=== PATIENT | female | born 1990 | race Caucasian/White ===

== ENCOUNTER 2020-03-05 19:37 | Emergency (ER) | payer BC, SELFPAY ==
[2020-03-05 20:27] VITALS: BP 114/69; PULSE 69; RESP 20; TEMP 37.1; O2SAT 99; BMI 26.6
--- NOTE | 2020-03-05 20:38 | ECG_ITS ---
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 Measurements Intervals [place] Rate: 57 P: 67 PA: 158 QRS: 81 QRSD: 87 T: 6 QT: 397 QTc: 387 Interpretive Statements SINUS BRADYCARDIA NONSPECIFIC T-WAVE ABNORMALITY Compared to ECG 08/18/2017 18:30:56 T-wave abnormality now present Sinus tachycardia no longer present ST (T wave) deviation no longer present Electronically Signed On 03-06-2020 18:33:00 CDT by Eric Lagunas M.D. [email or web address] Systemsochsner medical centerBridgeLuxmagruder [facility].[employer]/store/OM/[id number]
--- NOTE | 2020-03-05 20:38 | XR_ITS ---
WS: [id number] EXAM: AP CHEST: PORTABLE UPRIGHT DATE OF EXAM: 03/05/2020, 2115 hours COMPARISON: Chest x-ray from 08/18/2017 HISTORY: Patient is 29 years old with chest pain and shortness of breath. Has been tested positive for Covid-1 9 infection. FINDINGS: The cardiac silhouette is normal in size. The mediastinal contours are normal. The pulmonary vas cularity is normal. The lungs are clear of infiltrate. There is no effusion or pneumothorax. No ac navajo bony abnormality is seen. XR/XR chest 1V portable [id number] IMPRESSION: No acute pulmonary disease.
[2020-03-05] MEDS: ondansetron 2 mg/ML SDV 2 mL 4 MG IVP (20:41)
[2020-03-05] MEDS: ketorolac 30 mg/mL INJ 10 MG IVP (20:44)
[2020-03-05] MEDS: acetaminophen 500 mg Tablet 1000 MG PO (20:46)
[2020-03-05] MEDS: sodium chloride 0.9% 1,000 ML 999 ML IV (21:00)
--- NOTE | 2020-03-05 21:01 | ED_ITS ---
HPI - Chest Pain General: Chief Complaint: Chest Pain Stated Complaint: SOB Time Seen by Provider: 03/05/20 20:28 Source: patient Mode of arrival: ambulatory Limitations: no limitations History of Present Illness: HPI narrative: Ms. Morse is a nice 29-year-old female who comes in complaining of palpitations, cough, fever, generalized malaise and muscle aches. Patient's been exposed to COVID-19. She also complains of sore throat and generalized weakness. Patient is not tried nothing at home for this. She is unaware of anything makes it better or worse. She feels as though she is had a fever but she has not measured her temperature. Her cough is nonproductive. She denies any wheezing. Denies any abdominal pain, vomiting or diarrhea. Associated symptoms: Reports fever(s) and palpitations; Deny abdominal pain, diaphoresis, dyspnea, nausea, syncope or vomiting Review of Systems Const: Reports: fever(s), chills, body aches, fatigue and malaise; Denies: diaphoresis Eyes: Denies: change in vision, blurry vision, photophobia, eye discomfort, eye discharge or eye redness ENMT: Denies: throat pain, odynophagia, hoarseness, swelling of lips/tongue, ear or mastoid pain, ear discharge, change in hearing or nasal discharge Card: Reports: chest pain and palpitations; Denies: irregular heart rhythm, edema, lightheadedness, syncope, pre-syncope, dyspnea on exertion or orthopnea Resp: Denies: dyspnea, productive cough, non-productive cough, wheezing, hemoptysis or chest congestion GI: Denies: abdominal pain, nausea, vomiting, hematemesis, coffee ground emesis, heartburn, diarrhea, constipation, GI cramping, hematochezia or melena : Denies: flank pain, dysuria, urinary frequency, urinary urgency or hematuria Musc: Denies: neck pain, back pain, extremity pain, extremity swelling, joint pain, joint swelling, joint redness, joint warmth or joint stiffness Skin/Breast: Denies: rash, pruritus, erythema or skin tenderness Neuro: Denies: headache(s), numbness in extremities, weakness in extremities, sensory changes, lack of coordination, difficulty walking, dizziness, vertigo, confusion, Slurred speech present or seizure-like activity Sherman/Lymph: Denies: easy bruising, easy bleeding, petechiae, purpura or enlarged lymph nodes All/Imm: Denies: urticaria, throat swelling, tongue swelling, facial swelling or acute wheezing PFSH ED PFSH: Medical History (Updated 03/05/20 @ 22:31 by Angela Moreno) Unspecified asthma, uncomplicated Surgical History (Updated 12/10/19 @ 08:16 by Mary Contreras LPN) History of nasal sinusotomy (~2008) Balloon sinuplasty, Dr. Wang [place], [place] S/P adenoidectomy (~2008) Dr. Wang [place], [place] S/P appendectomy (07/05/11) Diagnotic Laparoscopy with appendectomy. Diagnosis: Right lower quadrant pain, probably mesenteric adenitis. Performed by Dr. Bravo at [facility] in [place], [place]. 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 Dr. Major @ [place], [place]. S/P tonsillectomy (~2009) Dr. Wang, [place], [place] Kathryn teeth extracted (~2015) Dr. Patterson [place], [place] Family History (Updated 12/10/19 @ 13:36 by Mary Contreras LPN) Grandmother Clotting disorder Deep vein thrombosis - Maternal grandmother and Maternal great uncle Stroke Multiple extended family history Dementia Vascular, with endstage COPD Lung disease Smoking induced Mother Psychiatric illness Bipolar Denies family history of Diabetes CAD (coronary artery disease) Hyperlipidemia Chronic kidney disease (CKD) Suicide Anesthesia complication Bleeding disorder Family history of premature coronary artery disease Cancer Hypertension Social History (Updated 12/10/19 @ 08:18 by Mary Contreras LPN) Smoking and tobacco status: never smoked Alcohol intake: current Alcohol intake frequency: holidays/special occasions only Physical Exam Const: COMMON NORMALS: no acute distress, patient oriented x3, no limitations, healthy appearing and well nourished GENERAL APPEARANCE: cooperative, well kempt and well developed HENMT: COMMON NORMALS: normocephalic, atraumatic, external ears normal, EAC's normal and Normal external nose present HEAD & SCALP: normal to inspection, normocephalic and atraumatic FACE & SINUS: normal facial exam and face symmetric NOSE: Normal external nose present and Normal nares present EXTERNAL EAR: Yes external ears normal EXTERNAL AUDITORY CANAL: EAC's normal MOUTH: Normal oral and palatal mucosa present, lip normal and tongue normal Eye: COMMON NORMALS: Equal, round and reactive pupils present and conjunctivae normal GENERAL EYE: appearance normal, both eyes and all related structures ALIGNMENT: Yes alignment normal PERIORBITAL: periorbital findings normal EYELID: eyelids normal CONJUNCTIVA: Yes conjunctivae normal SCLERA: sclerae normal PUPIL: Yes Equal, round and reactive pupils present Neck/C-Spine: COMMON NORMALS: full ROM, no lymphadenopathy, supple, no meningeal signs and no JVD GENERAL: Yes normal visual inspection and Yes trachea midline Chest: COMMONS NORMALS: normal inspection of the chest and normal palpation of entire chest wall Resp: COMMON NORMALS: normal respiratory effort, No retractions, No use of accessory muscles and clear to auscultation bilaterally EFFORT & INSPECTION: Yes able to speak in complete sentences and Yes symmetric chest movement AUSCULTATION: clear to auscultation bilaterally, no crackles, no rales, no rhonchi and no wheezes Cardio: COMMON NORMALS: no JVD, regular rate, regular rhythm, S1 normal heart sound present and S2 normal heart sound present RATE: regular rate RHYTHM: regular rhythm HEART SOUNDS: S1 normal heart sound present, S2 normal heart sound present, no click, no gallops, no murmurs, no rubs and abnormal split S2 GI: COMMON NORMALS: Soft to palpation and No hepatosplenomegaly present PALPATION: Yes Soft to palpation, No Tenderness to palpation present (GI), No Guarding due to palpation present (GI), No Rigid due to palpation, Yes No hepatosplenomegaly present, No Hernia present, No Palpable mass present and No Pulsatile mass present : COMMON NORMALS: Yes no CVA tenderness BLADDER/KIDNEY EXAM: Yes no CVA tenderness EXTERNAL FEMALE EXAM: No Hernia present Back/Pelvis: COMMON NORMALS: no CVA tenderness, thoracic and lumbar spine normal to inspection, no thoracic nor lumbar tenderness and thoraco-lumbar ROM normal Extremity: COMMON NORMALS: normal to inspection, full ROM, capillary refill normal, no joint enlargement, no clubbing, cyanosis or edema and no calf tenderness Neuro: COMMON NORMALS: patient oriented x3, CN's II-XII intact bilaterally, moves all extremities, no focal motor deficits and no sensory deficits noted MENINGEAL SIGNS: Yes no meningeal signs SPEECH: speech normal Psych: COMMON NORMALS: mental status grossly normal, Normal thought process present, cooperative, normal affect, speech normal and activity/motor behavior normal APPEARANCE: Yes well kempt SPEECH: Yes normal speech THOUGHT PROCESS: Normal thought process present Skin: COMMON NORMALS: no rashes or lesions noted, turgor normal, no jaundice, no petechiae and no mottling GENERAL SKIN EXAM: no rashes or lesions noted and turgor normal Course Vital Signs: Vital signs: Vital Signs Temperature 98.8 F 03/05/20 20:27 Pulse Rate 72 03/05/20 22:51 Respiratory Rate 16 03/05/20 22:51 Blood Pressure 101/69 03/05/20 22:51 Pulse Oximetry 99 03/05/20 22:51 MDM - Chest Pain MDM Narrative: Medical decision making narrative: 8 -patient is feeling better at this time. She is no longer having forceful palpitations. Her COVID is negative this is reassuring to her. I still think this is a very good likelihood as a cause for her symptoms as her has tested positive. She has a pending test through [facility]. Patient overall is feeling better but does not want to go home until she knows her second troponin is negative her first troponin was as low as can be detected. Her EKG was normal. There is no sign of pericarditis. I will go and repeat the second EKG troponin per her wishes but if negative I will send her home with medicine for bronchitis. I have informed her she still needs to take COVID precautions but she declines a send out test from our hospital. PERC rule negative. Lab Data: Attestation: I reviewed the patient's lab results. Labs: Lab Results 03/05/20 03/05/20 03/05/20 Range/Units 20:58 20:58 20:58 WBC 8.3 (4.0-10.0) 10^3/ uL RBC 4.82 (4.1-5.3) 10^6/u L Hgb 13.8 (11.5-15.3) g/dL Hct 42.0 (37.0-47.0) % MCV 87.1 (81-99) fL MCH 28.6 (28.0-34.0) pg MCHC 32.9 (30.0-36.0) g/dL RDW 11.7 L (12.1-15.1) % Plt Count 231 (130-400) 10^3/c mm MPV 10.5 H (7.4-10.4) fL Neut % (Auto) 52.8 % Lymph % (Auto) 36.4 % [place] % (Auto) 6.3 % Eos % (Auto) 3.9 % Baso % (Auto) 0.5 % Neut # (Auto) 4.39 (1.8-7.7) 10^3/u L Lymph # (Auto) 3.0 (0.8-4.8) 10^3/u L [place] # (Auto) 0.5 (0.2-0.9) 10^3/u L Eos # (Auto) 0.3 (0.0-0.8) 10^3/u L Baso # (Auto) 0.0 (0.0-0.1) 10^3/u L Nucleated RBC % (a uto) 0 % Nucleated RBCs # 0.0 /100WBC Sodium 139 (136-145) mmol/L Potassium 3.9 (3.5-5.1) mmol/L Chloride 106 (98-107) mmol/L Carbon Dioxide 22 (22-29) mmol/L Anion Gap 14.9 (5-19) BUN 18 (6-20) mg/dL Creatinine 0.8 (0.5-0.9) mg/dL GFR Calculation 84.8 L (90-130) mL/min Glucose 102 (65-115) mg/dL Calculated Osmolal ity 285 (285-295) mOsm/k g Calcium 9.3 (8.5-10.5) mg/dL Magnesium 1.9 (1.7-2.3) mg/dL Total Bilirubin 0.2 (0.15-1.2) mg/dL AST 12 (0-32) U/L ALT 10 (0-33) U/L Alkaline Phosphata se 54 (35-105) IU/L Troponin T Baselin e (0-10) ng/L Troponin T 120 Min [place] (0-10) ng/L Delta Troponin T (0-10) ABS# Total Protein 7.4 (6.6-8.7) g/dL Albumin 4.6 (3.5-5.2) g/dL Globulin 2.8 (1.3-4.6) g/dL HCG, Qual Negative (Negative) Urine Color (Yellow) Urine Appearance (CLEAR) Urine pH (5-7) Ur Specific Gravit y (1.005-1.030) Urine Protein (Negative) Urine Glucose (UA) (Normal) Urine Ketones (Negative) Urine Blood (Negative) Urine Nitrate (Negative) Urine Bilirubin (NEGATIVE) Urine Urobilinogen (Negative) mg/dL Ur Leukocyte Maddie ase (Negative) Urine RBC (0-2) /hpf Urine WBC (0-5) /hpf Ur Squamous Epith Cells (0-5) Amorphous Sediment Urine Bacteria (NONE) Urine Mucus SARS-CoV-2 Ag (Rap id) (Negative) 03/05/20 03/05/20 03/05/20 Range/Units 20:58 21:05 21:18 WBC (4.0-10.0) 10^3/ uL RBC (4.1-5.3) 10^6/u L Hgb (11.5-15.3) g/dL Hct (37.0-47.0) % MCV (81-99) fL MCH (28.0-34.0) pg MCHC (30.0-36.0) g/dL RDW (12.1-15.1) % Plt Count (130-400) 10^3/c mm MPV (7.4-10.4) fL Neut % (Auto) % Lymph % (Auto) % [place] % (Auto) % Eos % (Auto) % Baso % (Auto) % Neut # (Auto) (1.8-7.7) 10^3/u L Lymph # (Auto) (0.8-4.8) 10^3/u L [place] # (Auto) (0.2-0.9) 10^3/u L Eos # (Auto) (0.0-0.8) 10^3/u L Baso # (Auto) (0.0-0.1) 10^3/u L Nucleated RBC % (a uto) % Nucleated RBCs # /100WBC Sodium (136-145) mmol/L Potassium (3.5-5.1) mmol/L Chloride (98-107) mmol/L Carbon Dioxide (22-29) mmol/L Anion Gap (5-19) BUN (6-20) mg/dL Creatinine (0.5-0.9) mg/dL GFR Calculation (90-130) mL/min Glucose (65-115) mg/dL Calculated Osmolal ity (285-295) mOsm/k g Calcium (8.5-10.5) mg/dL Magnesium (1.7-2.3) mg/dL Total Bilirubin (0.15-1.2) mg/dL AST (0-32) U/L ALT (0-33) U/L Alkaline Phosphata se (35-105) IU/L Troponin T Baselin e 6 (0-10) ng/L Troponin T 120 Min [place] (0-10) ng/L Delta Troponin T (0-10) ABS# Total Protein (6.6-8.7) g/dL Albumin (3.5-5.2) g/dL Globulin (1.3-4.6) g/dL HCG, Qual (Negative) Urine Color Yellow (Yellow) Urine Appearance Clear (CLEAR) Urine pH 8 H (5-7) Ur Specific Gravit y 1.010 (1.005-1.030) Urine Protein Neg (Negative) Urine Glucose (UA) Norm (Normal) Urine Ketones Negative (Negative) Urine Blood Neg (Negative) Urine Nitrate Negative (Negative) Urine Bilirubin Neg (NEGATIVE) Urine Urobilinogen Norm (Negative) mg/dL Ur Leukocyte Maddie ase Trace H (Negative) Urine RBC 0-4 H (0-2) /hpf Urine WBC 0-4 H (0-5) /hpf Ur Squamous Epith Cells 25-40 H (0-5) Amorphous Sediment Not Reportable Urine Bacteria 1+ H (NONE) Urine Mucus 1+ SARS-CoV-2 Ag (Rap id) Negative (Negative) 03/05/20 Range/Units 22:42 WBC (4.0-10.0) 10^3/ uL RBC (4.1-5.3) 10^6/u L Hgb (11.5-15.3) g/dL Hct (37.0-47.0) % MCV (81-99) fL MCH (28.0-34.0) pg MCHC (30.0-36.0) g/dL RDW (12.1-15.1) % Plt Count (130-400) 10^3/c mm MPV (7.4-10.4) fL Neut % (Auto) % Lymph % (Auto) % [place] % (Auto) % Eos % (Auto) % Baso % (Auto) % Neut # (Auto) (1.8-7.7) 10^3/u L Lymph # (Auto) (0.8-4.8) 10^3/u L [place] # (Auto) (0.2-0.9) 10^3/u L Eos # (Auto) (0.0-0.8) 10^3/u L Baso # (Auto) (0.0-0.1) 10^3/u L Nucleated RBC % (a uto) % Nucleated RBCs # /100WBC Sodium (136-145) mmol/L Potassium (3.5-5.1) mmol/L Chloride (98-107) mmol/L Carbon Dioxide (22-29) mmol/L Anion Gap (5-19) BUN (6-20) mg/dL Creatinine (0.5-0.9) mg/dL GFR Calculation (90-130) mL/min Glucose (65-115) mg/dL Calculated Osmolal ity (285-295) mOsm/k g Calcium (8.5-10.5) mg/dL Magnesium (1.7-2.3) mg/dL Total Bilirubin (0.15-1.2) mg/dL AST (0-32) U/L ALT (0-33) U/L Alkaline Phosphata se (35-105) IU/L Troponin T Baselin e (0-10) ng/L Troponin T 120 Min [place] 6.00 (0-10) ng/L Delta Troponin T 0 (0-10) ABS# Total Protein (6.6-8.7) g/dL Albumin (3.5-5.2) g/dL Globulin (1.3-4.6) g/dL HCG, Qual (Negative) Urine Color (Yellow) Urine Appearance (CLEAR) Urine pH (5-7) Ur Specific Gravit y (1.005-1.030) Urine Protein (Negative) Urine Glucose (UA) (Normal) Urine Ketones (Negative) Urine Blood (Negative) Urine Nitrate (Negative) Urine Bilirubin (NEGATIVE) Urine Urobilinogen (Negative) mg/dL Ur Leukocyte Maddie ase (Negative) Urine RBC (0-2) /hpf Urine WBC (0-5) /hpf Ur Squamous Epith Cells (0-5) Amorphous Sediment Urine Bacteria (NONE) Urine Mucus SARS-CoV-2 Ag (Rap id) (Negative) Imaging Data^: CXR: Attestation: I personally reviewed and interpreted this imaging study as follows: My impression: No acute cardiopulmonary findings. EKG Data^: EKG 1: Attestation: I personally reviewed and interpreted this EKG as follows: EKG interpretation date: 03/05/20 EKG interpretation time: 21:05 Interpretation: Normal sinus rhythm at 57 beats a minute, nonspecific ST and T wave changes. No evidence of pericarditis. EKG 2: Attestation: I personally reviewed and interpreted this EKG as follows: EKG interpretation date: 03/05/20 EKG interpretation time: 22:37 Interpretation: Normal sinus rhythm at 64 beats a minute, no acute ST-T wave changes. Discharge Plan Discharge Patient Disposition: Home Clinical Impression: Viral syndrome Chest pain Qualifiers: Chest pain type: unspecified Qualified Code(s): R07.9 - Chest pain, unspecified Condition: Stable Prescriptions: New Zithromax Z-Ignacio 250 mg tablet See Rx Instructions .ROUTE .COMPLEX Qty: 6 RF: 0 No Action fexofenadine [Zohreh Allergy] 180 mg tablet 180 mg PO DAILY RF: 0 Referrals: Brad Lara MD [Primary Care Provider] - 1-3 days Discharge Diet: Advance as tolerated Discharge Activity: Increase activity as tolerated Patient Instructions: Viral Syndrome (ED) Coding Level of Care Code ED 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
[2020-03-05 21:05] LABS: Basophils % 0.5 %; Eosinophils # 0.3 10^3/uL (0.0-0.8); Eosinophils % 3.9 %; Hemoglobin 13.8 g/dL (11.5-15.3); Lymphocytes % 36.4 %; Mean Corpuscular HGB Conc 32.9 g/dL (30.0-36.0); Mean Corpuscular Hemoglobin 28.6 pg (28.0-34.0); Mean Corpuscular Volume 87.1 fL (81-99); Mean Platelet Volume 10.5 fL (7.4-10.4); Monocytes # 0.5 10^3/uL (0.2-0.9); Monocytes % 6.3 %; Neutrophils # 4.39 10^3/uL (1.8-7.7); Neutrophils % 52.8 %; Nucleated Red Blood Cells % 0 %; Platelet Count 231 10^3/cmm (130-400); Red Blood Count 4.82 10^6/uL (4.1-5.3); Red Cell Distribution Width 11.7 % (12.1-15.1); White Blood Count 8.3 10^3/uL (4.0-10.0)
[2020-03-05 21:17] VITALS: BP 112/65; PULSE 66; RESP 18; O2SAT 99
[2020-03-05 21:27] LABS: Alanine Aminotransferase 10 U/L (0-33); Albumin Level 4.6 g/dL (3.5-5.2); Alkaline Phosphatase 54 IU/L (35-105); Anion Gap 14.9 (5-19); Aspartate Amino Transferase 12 U/L (0-32); Blood Urea Nitrogen 18 mg/dL (6-20); Calcium 9.3 mg/dL (8.5-10.5); Carbon Dioxide 22 mmol/L (22-29); Chloride 106 mmol/L (98-107); Globulin 2.8 g/dL (1.3-4.6); Glomerular Filtration Rate 84.8 mL/min (90-130); Glucose 102 mg/dL (65-115); Magnesium 1.9 mg/dL (1.7-2.3); Osmolality Calculated 285 mOsm/kg (285-295); Potassium 3.9 mmol/L (3.5-5.1); Sodium 139 mmol/L (136-145); Total Bilirubin 0.2 mg/dL (0.15-1.2); Total Protein 7.4 g/dL (6.6-8.7)
[2020-03-05 21:43] LABS: HCG, Serum Qual Negative (Negative)
[2020-03-05 21:56] LABS: Bilirubin Urine Neg (NEGATIVE); Blood Urine Neg (Negative); Glucose Urine UA Norm (Normal); Ketones Urine Negative (Negative); Leukocyte Esterase Urine Trace (Negative); Nitrate Urine Negative (Negative); Protein Urine Neg (Negative); Urine Appearance Clear (CLEAR); Urine Color Yellow (Yellow); Urobilinogen Urine Norm (Negative); pH Urine 8 (5-7)
[2020-03-05 21:58] LABS: Bacteria Urine 1+; Mucus Urine 1+; RBC Urine 0-4 /hpf (0-2); Squamous Epithelial Cell Urine 25-40 (0-5); WBC Urine 0-4 /hpf (0-5)
[2020-03-05 21:59] LABS: SARS Covid-2 Antigen Negative (Negative)
[2020-03-05 21:59] LABS: Add Urine Culture? No
--- NOTE | 2020-03-05 22:06 | ECG_ITS ---
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 Measurements Intervals [place] Rate: 64 P: 71 [place]: 170 QRS: 80 QRSD: 89 T: 31 QT: 401 QTc: 414 Interpretive Statements SINUS RHYTHM Compared to ECG 03/05/2020 21:05:12 Sinus bradycardia no longer present T-wave abnormality no longer present Electronically Signed On 03-06-2020 18:32:23 CDT by Eric Lagunas M.D. [email or web address] [email or web address] [facility] natchezYadwire Technologymetro[facility].[employer]/store/OM/[id number]
[2020-03-05 22:23] LABS: Troponin(5th) Baseline 6 ng/L (0-10)
[2020-03-05 22:51] VITALS: BP 101/69; PULSE 72; RESP 16; O2SAT 99
[2020-03-05 23:09] LABS: Troponin 5 2HR Delta 0 ABS# (0-10)
[2020-03-05 23:33] VITALS: BP 122/74; PULSE 65; RESP 16; O2SAT 99
== END 2020-03-05 23:41 | disposition home or self-care (01) ==
PROVIDERS: Emergency Provider Emergency Medicine; PCP Family Medicine
DX: B34.9 Viral infection, unspecified (principal); R07.9 Chest pain, unspecified
CPT/HCPCS: 12345; 71045; 80053; 81001; 83735; 84484; 84703; 85025; 87426; 93005; 96361; 96374; 96375; 99283; 99284; J1885; J2405; J7030

== ENCOUNTER 2020-03-20 17:43 | Emergency (ER) | payer BC, SELFPAY ==
[2020-03-20 17:44] VITALS: BP 129/75; PULSE 113; RESP 16; TEMP 36.9; O2SAT 98; BMI 27.4
[2020-03-20 18:03] VITALS: BP 113/84; PULSE 84; RESP 18; TEMP 36.9; O2SAT 98
--- NOTE | 2020-03-20 18:13 | XRR_ITS ---
PROCEDURE INFORMATION: Exam: XR Chest, 1 View Exam date and time: 03/20/2020 6:55 PM Age: 29 years old Clinical indication: Cough; Patient HX: Per PT sick x3 wks; Additional info: Chest pain, SOB TECHNIQUE: Imaging protocol: XR of the chest Views: 1 view. COMPARISON: CR XR chest 1V portable [id number] 03/05/2020 9:13 PM FINDINGS: Lungs: Unremarkable. No consolidation. Pleural space: Unremarkable. No pleural effusion. No pneumothorax. Heart/Mediastinum: Unremarkable. No cardiomegaly. Bones/joints: No acute abnormality. XR/XR chest 1V portable [id number] IMPRESSION: No acute findings.
--- NOTE | 2020-03-20 18:14 | ECG_ITS ---
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 Measurements Intervals [place] Rate: 73 P: 67 NC: 145 QRS: 71 QRSD: 92 T: 32 QT: 360 QTc: 399 Interpretive Statements SINUS RHYTHM NONSPECIFIC T-WAVE ABNORMALITY Compared to ECG 03/05/2020 22:37:48 T-wave abnormality now present Electronically Signed On 03-21-2020 7:48:26 CDT by Rachele Stephens M.D. https://[email or web address].bttnwalthall county general hospitalBroadlinkgalion community hospital.[employer]/store/NU/[id number] [email or web address]
--- NOTE | 2020-03-20 18:15 | ED_ITS ---
HPI - Chest Pain General: Chief Complaint: Chest Pain Stated Complaint: SOB, chest pain Time Seen by Provider: 03/20/20 17:50 Source: patient Mode of arrival: ambulatory Limitations: no limitations History of Present Illness: HPI narrative: Patient has been feeling unwell for about 1 week now, and about 5 days ago she tested positive for COVID-19. She has been started on oral steroids and antibiotic but she is not feeling any better. She has also been having chest pain for that duration but his pain got much worse today. Pain is constant, with no known aggravating or relieving factors. No fever, she says she cannot take a deep breath but just does not feel like oxygen is getting into her lungs. She is therefore here for evaluation complaint: chest pain Onset (ago): day(s) (5) Timing of current episode: constant Prior episodes: Yes Onset: during rest Pain location: substernal Pain radiation: neck Severity: severe Pain scale (0-10): 7 Quality: heaviness Relieving factors: nothing Exacerbating factors: nothing Context: recent illness Associated symptoms: Reports dyspnea, nausea and palpitations; Deny abdominal pain, diaphoresis, fever(s), leg edema, sense of impending doom, syncope or vomiting Treatment prior to arrival: none Review of Systems General: Reports: 10 or more systems reviewed and unremarkable except in HPI and below Const: Denies: fever(s) or diaphoresis Eyes: Denies: change in vision or blurry vision ENMT: Denies: throat pain, enlarged tonsils, odynophagia, hoarseness, mouth pain or swelling of lips/tongue Card: Reports: palpitations; Denies: syncope Resp: Reports: dyspnea GI: Reports: nausea; Denies: abdominal pain or vomiting : Denies: flank pain, difficulty voiding, dysuria, urinary frequency, urinary urgency or urinary hesitancy Musc: Denies: neck pain, back pain or extremity swelling Skin/Breast: Denies: rash, pruritus or erythema Neuro: Denies: headache(s), numbness in extremities or weakness in extremities Endo: Denies: polyuria, polydipsia or tired all the time PFS ED PFSH: Medical History Unspecified asthma, uncomplicated Surgical History History of nasal sinusotomy (~2008) Balloon sinuplasty, Dr. Wang [place], [place] S/P adenoidectomy (~2008) Dr. Wang [place], [place] S/P appendectomy (07/05/11) Diagnotic Laparoscopy with appendectomy. Diagnosis: Right lower quadrant pain, probably mesenteric adenitis. Performed by Dr. Bravo at [facility] in [place], [place]. 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 Dr. Major @ [place], [place]. S/P tonsillectomy (~2009) Dr. Wang [place], [place] teeth extracted (~2015) Dr. Patterson [place], [place] Family History Grandmother Clotting disorder Deep vein thrombosis - Maternal grandmother and Maternal great uncle Stroke Multiple extended family history Dementia Vascular, with endstage COPD Lung disease Smoking induced Mother Psychiatric illness Bipolar Denies family history of Diabetes CAD (coronary artery disease) Hyperlipidemia Chronic kidney disease (CKD) Suicide Anesthesia complication Bleeding disorder Family history of premature coronary artery disease Cancer Hypertension Social History Smoking and tobacco status: never smoked Alcohol intake: current Alcohol intake frequency: holidays/special occasions only Physical Exam Const: COMMON NORMALS: no acute distress, average body habitus, patient oriented x3, no limitations, healthy appearing, alert and well nourished HENMT: COMMON NORMALS: normocephalic, atraumatic and moist oral mucous membranes HEAD & SCALP: normocephalic and atraumatic Neck/C-Spine: COMMON NORMALS: no meningeal signs and no JVD Chest: COMMONS NORMALS: normal inspection of the chest and normal palpation of entire chest wall Resp: COMMON NORMALS: normal respiratory effort, No retractions, No use of accessory muscles, clear to auscultation bilaterally and percussion normal AUSCULTATION: clear to auscultation bilaterally PERCUSSION: percussion normal Cardio: COMMON NORMALS: no JVD, regular rate, regular rhythm, S1 normal heart sound present, S2 normal heart sound present, No gallops present (Cardio), No clicks present (Cardio), No murmurs present (Cardio), No rub (Cardio) and Peripheral pulses 2+ throughout RATE: regular rate RHYTHM: regular rhythm HEART SOUNDS: S1 normal heart sound present and S2 normal heart sound present PERIPHERAL PULSES: Peripheral pulses 2+ throughout GI: COMMON NORMALS: Normal to inspection, nondistended, normoactive bowel sounds present, Soft to palpation, non-tender, No hepatosplenomegaly present, no masses and no bruits PALPATION: Yes Soft to palpation and Yes No hepatosplenomegaly present Extremity: COMMON NORMALS: normal to inspection, full ROM, capillary refill normal, no calf tenderness and no pedal edema Neuro: COMMON NORMALS: patient oriented x3 SENSORIUM/ORIENTATION: Yes alert MENINGEAL SIGNS: Yes no meningeal signs Skin: COMMON NORMALS: no rashes or lesions noted, no wounds, turgor normal, no jaundice, no petechiae and no mottling GENERAL SKIN EXAM: no rashes or lesions noted and turgor normal Course Reevaluation(s): Reevaluation #1: Discussed her lab and imaging findings with her. Other than mildly elevated lactic acid nothing else is acute. Chest x-ray is clear. Saturating well, not tachycardic. No signs of sepsis. I think she is just dehydrated. She is given 2 L of fluid and repeat lactic acid is normal. If she has COVID it is mild and does not need further management other than what she is currently on. We will discharge her home with no new orders. She voiced understanding and is in agreement with the plan. Time: 23:43 Vital Signs: Vital signs: Vital Signs Temperature 97.9 F 03/20/20 22:51 Pulse Rate 80 03/20/20 22:51 Respiratory Rate 18 03/20/20 22:51 Blood Pressure 110/63 03/20/20 22:51 Pulse Oximetry 98 03/20/20 22:51 MDM - Chest Pain MDM Narrative: Medical decision making narrative: 29-year-old female patient who tested positive for COVID-19 about 5 days ago. She presents to the emergency department chest pain or shortness of breath. In the emergency department she was not hypoxic with her oxygen saturations in the high 90s, other vital signs were normal. Chest x-ray was negative, labs were unremarkable other than leukocytosis which is likely secondary to steroid use. She is currently on steroids and azithromycin given to her by her primary care provider. She also has mild lactic acidosis which corrected after 2 L of normal saline. No signs of sepsis, no signs of severe infection. She is discharged home with no new orders. Lab Data: Labs: Lab Results 03/20/20 03/20/20 03/20/20 Range/Units 17:40 17:40 17:40 WBC 16.1 H (4.0-10.0) 10^3/ uL RBC 5.14 (4.1-5.3) 10^6/u L Hgb 14.9 (11.5-15.3) g/dL Hct 43.8 (37.0-47.0) % MCV 85.2 (81-99) fL MCH 29.0 (28.0-34.0) pg MCHC 34.0 (30.0-36.0) g/dL RDW 11.8 L (12.1-15.1) % Plt Count 363 (130-400) 10^3/c mm MPV 10.2 (7.4-10.4) fL Neut % (Auto) 76.7 % Lymph % (Auto) 14.7 % [place] % (Auto) 6.2 % Eos % (Auto) 0.0 % Baso % (Auto) 0.2 % Neut # (Auto) 12.35 H (1.8-7.7) 10^3/u L Lymph # (Auto) 2.4 (0.8-4.8) 10^3/u L [place] # (Auto) 1.0 H (0.2-0.9) 10^3/u L Eos # (Auto) 0.0 (0.0-0.8) 10^3/u L Baso # (Auto) 0.0 (0.0-0.1) 10^3/u L Nucleated RBC % (a uto) 0 % Nucleated RBCs # 0.0 /100WBC D-Dimer <= 0.27 (0-0.59) ug/mIFE U Sodium 139 (136-145) mmol/L Potassium 4.0 (3.5-5.1) mmol/L Chloride 100 (98-107) mmol/L Carbon Dioxide 24 (22-29) mmol/L Anion Gap 19.0 (5-19) BUN 15 (6-20) mg/dL Creatinine 0.6 (0.5-0.9) mg/dL GFR Calculation 118.2 (90-130) mL/min Glucose 124 H (65-115) mg/dL Calculated Osmolal ity 286 (285-295) mOsm/k g Lactic Acid (0.5-2.2) mmol/L Lactic Acid (Sepsi s) (0.5-2.2) mmol/L Calcium 10.6 H (8.5-10.5) mg/dL Total Bilirubin 0.5 (0.15-1.2) mg/dL AST 9 (0-32) U/L ALT 12 (0-33) U/L Alkaline Phosphata se 61 (35-105) IU/L Troponin T Baselin e (0-10) ng/L Troponin T 120 Min [place] (0-10) ng/L Delta Troponin T (0-10) ABS# NT-Pro-B Natriuret Pep 19 (0-125) pg/mL Total Protein 7.6 (6.6-8.7) g/dL Albumin 4.8 (3.5-5.2) g/dL Globulin 2.8 (1.3-4.6) g/dL Lipase 20 (13-60) U/L 03/20/20 03/20/20 03/20/20 Range/Units 17:40 17:40 19:40 WBC (4.0-10.0) 10^3/ uL RBC (4.1-5.3) 10^6/u L Hgb (11.5-15.3) g/dL Hct (37.0-47.0) % MCV (81-99) fL MCH (28.0-34.0) pg MCHC (30.0-36.0) g/dL RDW (12.1-15.1) % Plt Count (130-400) 10^3/c mm MPV (7.4-10.4) fL Neut % (Auto) % Lymph % (Auto) % [place] % (Auto) % Eos % (Auto) % Baso % (Auto) % Neut # (Auto) (1.8-7.7) 10^3/u L Lymph # (Auto) (0.8-4.8) 10^3/u L [place] # (Auto) (0.2-0.9) 10^3/u L Eos # (Auto) (0.0-0.8) 10^3/u L Baso # (Auto) (0.0-0.1) 10^3/u L Nucleated RBC % (a uto) % Nucleated RBCs # /100WBC D-Dimer (0-0.59) ug/mIFE U Sodium (136-145) mmol/L Potassium (3.5-5.1) mmol/L Chloride (98-107) mmol/L Carbon Dioxide (22-29) mmol/L Anion Gap (5-19) BUN (6-20) mg/dL Creatinine (0.5-0.9) mg/dL GFR Calculation (90-130) mL/min Glucose (65-115) mg/dL Calculated Osmolal ity (285-295) mOsm/k g Lactic Acid 2.6 H (0.5-2.2) mmol/L Lactic Acid (Sepsi s) (0.5-2.2) mmol/L Calcium (8.5-10.5) mg/dL Total Bilirubin (0.15-1.2) mg/dL AST (0-32) U/L ALT (0-33) U/L Alkaline Phosphata se (35-105) IU/L Troponin T Baselin e 6 (0-10) ng/L Troponin T 120 Min [place] 6.00 (0-10) ng/L Delta Troponin T 0 (0-10) ABS# NT-Pro-B Natriuret Pep (0-125) pg/mL Total Protein (6.6-8.7) g/dL Albumin (3.5-5.2) g/dL Globulin (1.3-4.6) g/dL Lipase (13-60) U/L 03/20/20 Range/Units 23:02 WBC (4.0-10.0) 10^3/ uL RBC (4.1-5.3) 10^6/u L Hgb (11.5-15.3) g/dL Hct (37.0-47.0) % MCV (81-99) fL MCH (28.0-34.0) pg MCHC (30.0-36.0) g/dL RDW (12.1-15.1) % Plt Count (130-400) 10^3/c mm MPV (7.4-10.4) fL Neut % (Auto) % Lymph % (Auto) % [place] % (Auto) % Eos % (Auto) % Baso % (Auto) % Neut # (Auto) (1.8-7.7) 10^3/u L Lymph # (Auto) (0.8-4.8) 10^3/u L [place] # (Auto) (0.2-0.9) 10^3/u L Eos # (Auto) (0.0-0.8) 10^3/u L Baso # (Auto) (0.0-0.1) 10^3/u L Nucleated RBC % (a uto) % Nucleated RBCs # /100WBC D-Dimer (0-0.59) ug/mIFE U Sodium (136-145) mmol/L Potassium (3.5-5.1) mmol/L Chloride (98-107) mmol/L Carbon Dioxide (22-29) mmol/L Anion Gap (5-19) BUN (6-20) mg/dL Creatinine (0.5-0.9) mg/dL GFR Calculation (90-130) mL/min Glucose (65-115) mg/dL Calculated Osmolal ity (285-295) mOsm/k g Lactic Acid (0.5-2.2) mmol/L Lactic Acid (Sepsi s) 1.7 (0.5-2.2) mmol/L Calcium (8.5-10.5) mg/dL Total Bilirubin (0.15-1.2) mg/dL AST (0-32) U/L ALT (0-33) U/L Alkaline Phosphata se (35-105) IU/L Troponin T Baselin e (0-10) ng/L Troponin T 120 Min [place] (0-10) ng/L Delta Troponin T (0-10) ABS# NT-Pro-B Natriuret Pep (0-125) pg/mL Total Protein (6.6-8.7) g/dL Albumin (3.5-5.2) g/dL Globulin (1.3-4.6) g/dL Lipase (13-60) U/L Imaging Data^: CXR: Radiologist's impression: [address] [address] XRay Report Signed Patient: Pebbles Henry #: [id number] : 1990Acct#:[id number] Age/Sex: 29 / FADM Date: 03/20/20 Loc: ERRoom/Bed: Attending Dr: Ordering Provider/Ordering MD: Malcom Johansen MD, [facility] [place] Date of Service: 03/20/20 Procedure(s): XR chest 1V portable [id number] Accession Number(s): [id number] Report Number: [id number] PROCEDURE INFORMATION: Exam: XR Chest, 1 View Exam date and time: 03/20/2020 6:55 PM Age: 29 years old Clinical indication: Cough; Patient HX: Per PT sick x3 wks; Additional info: Chest pain, SOB TECHNIQUE: Imaging protocol: XR of the chest Views: 1 view. COMPARISON: CR XR chest 1V portable [id number] 03/05/2020 9:13 PM FINDINGS: Lungs: Unremarkable. No consolidation. Pleural space: Unremarkable. No pleural effusion. No pneumothorax. Heart/Mediastinum: Unremarkable. No cardiomegaly. Bones/joints: No acute abnormality. XR/XR chest 1V portable [id number] IMPRESSION: No acute findings. Dictated By:Sydney Boswell Signed By:Zia Boswell Date/Time:03/20/201920 DD/ 19 EKG Data^: EKG 1: Attestation: I personally reviewed and interpreted this EKG as follows: EKG interpretation date: 03/20/20 EKG interpretation time: 17:59 Prior EKG tracings: not available for review Interpretation: Sinus rhythm. Heart rate 73 bpm. Normal axis. No ST changes. No STEMI EKG 2: Attestation: I personally reviewed and interpreted this EKG as follows: EKG interpretation date: 03/20/20 EKG interpretation time: 20:18 Prior EKG tracings: available for review Interpretation: Sinus rhythm with sinus arrhythmia. Heart rate 73 bpm. Normal axis. No ST changes. Discharge Plan Discharge Patient Disposition: Home Clinical Impression: Chest pain, non-cardiac, COVID-19, Acidosis, lactic Condition: Stable Prescriptions: Continued fexofenadine [Zohreh Allergy] 180 mg tablet 180 mg PO DAILY RF: 0 Zithromax Z-Ignacio 250 mg tablet See Rx Instructions .ROUTE .COMPLEX Qty: 6 RF: 0 Discharge Orders: Discharge Order (Routine); Ordered 03/20/20 Ordered By: Malcom Johansen Referrals: Brad Lara MD [Primary Care Provider] - 1-3 days Patient Instructions: Chest Pain (ED) Activity Restrictions/Additional Instructions: Return for any new or worsening symptoms. Follow-up with your primary care provider within 3 days. Continue steroid and antibiotic. Drink plenty of fluids to keep well-hydrated. Coding Level of Care Code ED Medical Technologist Chemistry for [place] Fwd Exam Comprehensive
[2020-03-20] MEDS: nitroglycerin 1 gm/inch oint Pkt 1 INCH TOPICAL (18:18)
[2020-03-20 18:21] LABS: Basophils % 0.2 %; Hematocrit 43.8 % (37.0-47.0); Hemoglobin 14.9 g/dL (11.5-15.3); Lymphocytes # 2.4 10^3/uL (0.8-4.8); Lymphocytes % 14.7 %; Mean Corpuscular Volume 85.2 fL (81-99); Mean Platelet Volume 10.2 fL (7.4-10.4); Monocytes % 6.2 %; Neutrophils # 12.35 10^3/uL (1.8-7.7); Neutrophils % 76.7 %; Nucleated Red Blood Cells % 0 %; Platelet Count 363 10^3/cmm (130-400); Red Blood Count 5.14 10^6/uL (4.1-5.3); Red Cell Distribution Width 11.8 % (12.1-15.1); White Blood Count 16.1 10^3/uL (4.0-10.0)
[2020-03-20 18:35] LABS: D Dimer <= 0.27 ug/mIFEU (0-0.59)
[2020-03-20 18:57] VITALS: BP 112/77; PULSE 85; RESP 18; O2SAT 95
[2020-03-20 18:59] LABS: Lactic Sepsis W/Reflex 2.6 mmol/L (0.5-2.2)
[2020-03-20 19:01] LABS: Troponin(5th) Baseline 6 ng/L (0-10)
[2020-03-20 19:05] LABS: Alanine Aminotransferase 12 U/L (0-33); Albumin Level 4.8 g/dL (3.5-5.2); Alkaline Phosphatase 61 IU/L (35-105); Aspartate Amino Transferase 9 U/L (0-32); Blood Urea Nitrogen 15 mg/dL (6-20); Calcium 10.6 mg/dL (8.5-10.5); Carbon Dioxide 24 mmol/L (22-29); Chloride 100 mmol/L (98-107); Globulin 2.8 g/dL (1.3-4.6); Glomerular Filtration Rate 118.2 mL/min (90-130); Glucose 124 mg/dL (65-115); Lipase 20 U/L (13-60); NT Pro B Type Natriuretic Pept 19 pg/mL (0-125); Osmolality Calculated 286 mOsm/kg (285-295); Sodium 139 mmol/L (136-145); Total Bilirubin 0.5 mg/dL (0.15-1.2); Total Protein 7.6 g/dL (6.6-8.7)
[2020-03-20 20:01] VITALS: BP 114/79; PULSE 86; RESP 18; O2SAT 96
[2020-03-20 20:04] LABS: Reflex Lactate Order REFLEX LACTIC ORDERD
[2020-03-20 20:11] LABS: Troponin 5 2HR Delta 0 ABS# (0-10)
--- NOTE | 2020-03-20 20:14 | ECG_ITS ---
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 Measurements Intervals [place] Rate: 73 P: 66 VA: 147 QRS: 72 QRSD: 93 T: 50 QT: 362 QTc: 400 Interpretive Statements SINUS RHYTHM WITH SINUS ARRHYTHMIA NONSPECIFIC T-WAVE ABNORMALITY Compared to ECG 03/20/2020 17:58:57 No significant changes Electronically Signed On 03-21-2020 8:08:20 CDT by Rachele Stephens M.D. [id number]
[2020-03-20] MEDS: sodium chloride 0.9% 1,000 ML 999 ML IV ×2 (21:00→22:00)
[2020-03-20 22:41] VITALS: RESP 18; O2SAT 98
[2020-03-20] MEDS: metoclopramide 5 mg/mL SDV 2 mL 10 MG IVP (22:41)
[2020-03-20] MEDS: morphine 4 mg/mL SDV 1 mL IVP (22:41)
[2020-03-20 22:51] VITALS: BP 110/63; PULSE 80; RESP 18; TEMP 36.6; O2SAT 98
[2020-03-20 23:35] LABS: Lactic Acid level (Lactate) 1.7 mmol/L (0.5-2.2)
[2020-03-21 00:05] VITALS: BP 116/78; PULSE 70; RESP 18; O2SAT 99
== END 2020-03-21 00:10 | disposition home or self-care (01) ==
PROVIDERS: Emergency Provider Family Medicine; PCP Family Medicine
DX: R07.89 Other chest pain (principal); U07.1 COVID-19; E87.2 Acidosis
CPT/HCPCS: 12345; 71045; 80053; 83605; 83690; 83880; 84484; 85025; 85378; 93005; 96361; 96374; 96375; 99283; 99284; J2270; J2765; J7030

== ENCOUNTER 2020-09-21 10:32 | Emergency (ER) | payer BC, SELFPAY ==
[2020-09-21] VITALS (8 sets, daily range): BP systolic 99–125; BP diastolic 66–89; PULSE 68–84; RESP 16–18; TEMP 36.5; O2SAT 95–100; BMI 29.2
--- NOTE | 2020-09-21 10:45 | ED_ITS ---
HPI - Abdominal Pain General: Chief Complaint: Abdominal Pain Stated Complaint: LOWER QUAD PAIN Time Seen by Provider: 09/21/20 10:36 Source: patient Mode of arrival: EMS Limitations: no limitations History of Present Illness: HPI narrative: Patient is a nice 29-year-old female who presents to ED today with a complaint of severe lower abdominal/pelvic pain. Patient tells me she sneezed yesterday and began noticing some left lower abdominal/pelvic pain that she thought most likely was a strained muscle. She states today during exercise she was doing a burpee and noticed immediate very severe pain in the same area. She tells me it felt like a gush of blood as she describes a warm sensation. She states since that time she has had severe pain and dizziness as well as one syncopal episode. Patient denies chance of as her has had a vasectomy. Patient is not having any vaginal bleeding or discharge. Denies nausea or vomiting. She has not noticed any changes to bowel or urinary habits. Patient received IV fentanyl via EMS prior to arrival. MD elicited complaint: abdominal pain Pertinent past history: other (hx of cholecystectomy and appendectomy) Pain Consistency: constant Location: LLQ and Pelvis Severity: severe Quality: sharp and burning Radiation: none Migration to: no migration Exacerbating factors: movement Relieving factors: rest Associated Symptoms: Reports no associated symptoms; Denies change in bowel habits, change in stool character, chills, diarrhea, dysuria, fever(s), heartburn, hematochezia, hematemesis, melena, nausea, syncope and vomiting Related Data: Patient : No Review of Systems Const: Denies: fever(s), chills, body aches, fatigue or malaise Eyes: Denies: change in vision, blurry vision, photophobia, floaters or seeing flashes Card: Denies: chest pain, palpitations, irregular heart rhythm, lightheadedness, syncope or dyspnea on exertion Resp: Denies: dyspnea, productive cough or pain on inspiration GI: Reports: abdominal pain; Denies: nausea, vomiting, hematemesis, heartburn, diarrhea, change in bowel habits, pain on defecation, rectal pain, change in stool character, hematochezia or melena : Denies: flank pain, difficulty voiding, dysuria, urinary frequency, urinary urgency, urinary hesitancy, vaginal bleeding or vaginal discharge Musc: Denies: neck pain, back pain, extremity pain, extremity swelling, joint pain or joint swelling Skin/Breast: Denies: rash Neuro: Reports: dizziness; Denies: headache(s), numbness in extremities, weakness in extremities, sensory changes, lack of coordination, difficulty walking, frequent falls, vertigo or confusion [facility] ED PFSH: Medical History (Updated 09/21/20 @ 13:22 by OSMIN Cintron) Unspecified asthma, uncomplicated Surgical History History of nasal sinusotomy (~2008) Balloon sinuplasty, Dr. Wang [place], [place] S/P adenoidectomy (~2008) Dr. Wang [place], [place] S/P appendectomy (07/05/11) Diagnotic Laparoscopy with appendectomy. Diagnosis: Right lower quadrant pain, probably mesenteric adenitis. Performed by Dr. Bravo at [facility] in [place], [place]. 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 Dr. Major @ [place], [place]. S/P tonsillectomy (~2009) Dr. Wang [place], [place] teeth extracted (~2015) Dr. Patterson [place], [place] Family History Grandmother Clotting disorder Deep vein thrombosis - Maternal grandmother and Maternal great uncle Stroke Multiple extended family history Dementia Vascular, with endstage COPD Lung disease Smoking induced Mother Psychiatric illness Bipolar Denies family history of Diabetes CAD (coronary artery disease) Hyperlipidemia Chronic kidney disease (CKD) Suicide Anesthesia complication Bleeding disorder Family history of premature coronary artery disease Cancer Hypertension Social History Smoking and tobacco status: never smoked Alcohol intake: current Alcohol intake frequency: holidays/special occasions only Physical Exam Const: COMMON NORMALS: average body habitus, patient oriented x3, no limitations, healthy appearing, alert and well nourished GENERAL APPEARANCE: cooperative ORIENTATION/CONSCIOUSNESS: Yes awake, Yes oriented to person, Yes oriented to place and Yes oriented to time OTHER: appears slightly uncomfortable secondary to abdominal/pelvic pain; mildly hypotensive on monitor when I walked in room (90s/60s); this was retaken and BP reading 110s/80s HENMT: COMMON NORMALS: normocephalic and atraumatic HEAD & SCALP: normocephalic and atraumatic Resp: COMMON NORMALS: normal respiratory effort and clear to auscultation bilaterally AUSCULTATION: clear to auscultation bilaterally Cardio: COMMON NORMALS: regular rate and regular rhythm RATE: regular rate RHYTHM: regular rhythm GI: COMMON NORMALS: Normal to inspection, nondistended, normoactive bowel sounds present, Soft to palpation, No hepatosplenomegaly present and no masses PALPATION: Yes Soft to palpation, Yes Tenderness to palpation present (GI) (RLQ, LLQ, pelvis) and Yes No hepatosplenomegaly present : COMMON NORMALS: Yes no CVA tenderness BLADDER/KIDNEY EXAM: Yes no CVA tenderness Back/Pelvis: COMMON NORMALS: no CVA tenderness Extremity: COMMON NORMALS: normal to inspection Neuro: COMMON NORMALS: patient oriented x3 SENSORIUM/ORIENTATION: Yes alert, Yes oriented to person and Yes oriented to time Skin: COMMON NORMALS: no rashes or lesions noted GENERAL SKIN EXAM: no rashes or lesions noted Course Vital Signs: Vital signs: Vital Signs Temperature 97.7 F 09/21/20 10:32 Pulse Rate 75 09/21/20 13:42 Respiratory Rate 18 09/21/20 13:42 Blood Pressure 108/68 09/21/20 13:42 Pulse Oximetry 96 09/21/20 13:42 MDM - Abdominal Pain MDM Narrative: Medical decision making narrative: Patient's vital signs are stable. H/H is 13.5/38. Remainder of labs are non-concerning. is negative. CT showing right ovarian cyst with a small amount of fluid around her right ovary and in the cul-de-sac with no other acute findings. Ultrasound confirms this reporting a 10 mm hemorrhagic right cyst. Patient has had repeat doses of IV pain medications to control her pain. I did offer patient admission to the hospital for pain control but she refuses stating she would like to go home. Strict return to ED precautions given regarding worsening pain, lightheadedness, dizziness, further passing out episodes, or any other concerns she may have. Patient verbalizes understanding. She states she will follow-up with PCP Dr. Lara and return to the ED for any acute worsening symptoms. Lab Data: Labs: Lab Results 09/21/20 09/21/20 09/21/20 Range/Units 10:37 10:37 10:37 WBC 5.3 (4.0-10.0) 10^3/ uL RBC 4.51 (4.1-5.3) 10^6/u L Hgb 13.5 (11.5-15.3) g/dL Hct 38.0 (37.0-47.0) % MCV 84.3 (81-99) fL MCH 29.9 (28.0-34.0) pg MCHC 35.5 (30.0-36.0) g/dL RDW 12.1 (12.1-15.1) % Plt Count 268 (130-400) 10^3/c mm MPV 10.5 H (7.4-10.4) fL Neut % (Auto) 57.5 % Lymph % (Auto) 30.8 % [place] % (Auto) 8.1 % Eos % (Auto) 3.0 % Baso % (Auto) 0.4 % Neut # (Auto) 3.07 (1.8-7.7) 10^3/u L Lymph # (Auto) 1.6 (0.8-4.8) 10^3/u L [place] # (Auto) 0.4 (0.2-0.9) 10^3/u L Eos # (Auto) 0.2 (0.0-0.8) 10^3/u L Baso # (Auto) 0.0 (0.0-0.1) 10^3/u L Nucleated RBC % (a uto) 0 % Nucleated RBCs # 0.0 /100WBC Sodium 138 (136-145) mmol/L Potassium 3.8 (3.5-5.1) mmol/L Chloride 102 (98-107) mmol/L Carbon Dioxide 20 L (22-29) mmol/L Anion Gap 19.8 H (5-19) BUN 12 (6-20) mg/dL Creatinine 0.9 (0.5-0.9) mg/dL GFR Calculation 74.0 L (90-130) mL/min Glucose 85 (65-115) mg/dL Calculated Osmolal ity 285 (285-295) mOsm/k g Calcium 9.7 (8.5-10.5) mg/dL Total Bilirubin 0.4 (0.15-1.2) mg/dL AST 35 H (0-32) U/L ALT 24 (0-33) U/L Alkaline Phosphata se 59 (35-105) IU/L Total Protein 7.3 (6.6-8.7) g/dL Albumin 4.5 (3.5-5.2) g/dL Globulin 2.8 (1.3-4.6) g/dL HCG, Qual Negative (Negative) Urine Color (Yellow) Urine Appearance (CLEAR) Urine pH (5-7) Ur Specific Gravit y (1.005-1.030) Urine Protein (Negative) Urine Glucose (UA) (Normal) Urine Ketones (Negative) Urine Blood (Negative) Urine Nitrate (Negative) Urine Bilirubin (Negative) Prot Sulfosalicyli c Acd (Negative) Urine Urobilinogen (Negative) mg/dL Ur Leukocyte Maddie ase (Negative) 09/21/20 Range/Units 11:17 WBC (4.0-10.0) 10^3/ uL RBC (4.1-5.3) 10^6/u L Hgb (11.5-15.3) g/dL Hct (37.0-47.0) % MCV (81-99) fL MCH (28.0-34.0) pg MCHC (30.0-36.0) g/dL RDW (12.1-15.1) % Plt Count (130-400) 10^3/c mm MPV (7.4-10.4) fL Neut % (Auto) % Lymph % (Auto) % [place] % (Auto) % Eos % (Auto) % Baso % (Auto) % Neut # (Auto) (1.8-7.7) 10^3/u L Lymph # (Auto) (0.8-4.8) 10^3/u L [place] # (Auto) (0.2-0.9) 10^3/u L Eos # (Auto) (0.0-0.8) 10^3/u L Baso # (Auto) (0.0-0.1) 10^3/u L Nucleated RBC % (a uto) % Nucleated RBCs # /100WBC Sodium (136-145) mmol/L Potassium (3.5-5.1) mmol/L Chloride (98-107) mmol/L Carbon Dioxide (22-29) mmol/L Anion Gap (5-19) BUN (6-20) mg/dL Creatinine (0.5-0.9) mg/dL GFR Calculation (90-130) mL/min Glucose (65-115) mg/dL Calculated Osmolal ity (285-295) mOsm/k g Calcium (8.5-10.5) mg/dL Total Bilirubin (0.15-1.2) mg/dL AST (0-32) U/L ALT (0-33) U/L Alkaline Phosphata se (35-105) IU/L Total Protein (6.6-8.7) g/dL Albumin (3.5-5.2) g/dL Globulin (1.3-4.6) g/dL HCG, Qual (Negative) Urine Color Yellow (Yellow) Urine Appearance Clear (CLEAR) Urine pH 8 H (5-7) Ur Specific Gravit y 1.010 (1.005-1.030) Urine Protein Neg (Negative) Urine Glucose (UA) Norm (Normal) Urine Ketones 1+ H (Negative) Urine Blood Neg (Negative) Urine Nitrate Negative (Negative) Urine Bilirubin Neg (Negative) Prot Sulfosalicyli c Acd Negative (Negative) Urine Urobilinogen Norm (Negative) mg/dL Ur Leukocyte Maddie ase Negative (Negative) Imaging Data ^: CT Abd/Pel: Radiologist's impression: [address] [address] [address] Scan Report Signed Patient: Pebbles Henry #: [id number] : 1990Acct#:[id number] Age/Sex: 29 FADM Date: 09/21/20 Loc: ERRoom/Bed: Attending Dr: Ordering Provider/Ordering MD: Damaris Bocanegra Date of Service: 09/21/20 Procedure(s): CT abdomen pelvis w con* [id number] Accession Number(s): [id number] Report Number: [id number] WS: [id number] CT ABDOMEN PELVIS TECHNIQUE: Contrast-enhanced CT of the abdomen and pelvis with coronal and sagittal reformatted images. CLINICAL INFORMATION: lower abdominal pain COMPARISON: CT June 2011 DLP: 1510.[address] scans at [facility] use at least one of these dose optimization techniques: automated exposure control; mA and/or kV adjustment per patient size (includes targeted exams where dose is matched to clinical indication); or iterative reconstruction. FINDINGS: Mild diffuse fatty infiltration the liver. Cholecystectomy clips. Normal portal vein and splenic vein. Normal pancreas. Spleen is normal. Lung bases are well aerated. Adrenal glands are normal. Normal renal parenchymal enhancement. No hydronephrosis. Normal caliber abdominal aorta. Peripherally enhancing right ovarian cyst or corpus luteum cyst measuring 1.8 x 1.2 CM. Small amount of free fluid in the pelvis and about the right ovary. Retroflexed uterus. No evidence of small or large bowel obstruction. Normal sigmoid colon. Evidence of prior appendectomy. CT/CT abdomen pelvis w con* [id number] IMPRESSION: 1. Peripheral enhancing right ovarian cyst or corpus luteum cyst measuring 1.2 x 1.8 cm. Small amount of fluid about the right ovary and in the cul-de-sac. 2. Retroflexed uterus. 3. Mild diffuse fatty infiltration of the liver. Prior cholecystectomy. 4. Normal renal parenchymal enhancement. No hydronephrosis. 5. Fat-containing umbilical hernia. 6. No other acute findings. Dictated By:Blade Blair MD Signed By:Blade Blair MDSigned Date/Time:09/21/20 1224 DD/ 1208 US TV: Radiologist's impression: [facility] [address] [place] [address] Ultrasound Report Signed Patient: Pebbles Henry #: [id number] : 1990Acct#:[id number] Age/Sex: 29 / FADM Date: 09/21/20 Loc: ERRoom/Bed: Attending Dr: Ordering Provider/Ordering MD: Damaris Bocanegra Date of Service: 09/21/20 Procedure(s): US transvaginal 07220 Accession Number(s): [id number] Report Number: [id number] WS: [id number] ULTRASOUND PELVIS TECHNIQUE: Transvaginal. CLINICAL INFORMATION: sudden severe lower abdominal/pelvic pain LMP: : No. COMPARISON: None. FINDINGS: Uterus Orientation: Anteverted. Size: 8.5 x 3.5 x 5.5 cm Masses: None. Cervix: Normal. Endometrium: 6.8 mm Adnexa: Small hemorrhagic cyst right ovary measuring 10 mm. Right ovary size: 3.5 x 1.8 x 2.6 cm Left ovary size: 2.8 x 1.4 x 2.3 cm. Free fluid: Small amount of free fluid in the cul-de-sac. Other findings: None. US/ transvaginal [id number] IMPRESSION: 1. Normal uterus and endometrium. Endometrium measures 6.8 mm. 2. Normal vascularity to both ovaries. Multifollicular ovaries bilaterally. 3. Small amount of free fluid in the cul-de-sac. 4. Small hemorrhagic cyst right ovary measuring 10 mm. Dictated By:Blade Blair MD Signed By:Blade Blair MDSigned Date/Time:09/21/201317 DD/ 09 Discharge Plan Discharge Patient Disposition: Home Clinical Impression: Hemorrhagic cyst of right ovary Condition: Stable Prescriptions: New hydrocodone-acetaminophen 5-325 mg tablet 1 tab PO Q6H PRN (Reason: pain) Qty: 20 RF: 0 Zofran 4 mg tablet 4 mg PO Q6H PRN (Reason: nausea and vomiting) Qty: 14 RF: 0 No Action fluoxetine 40 mg capsule 40 mg PO DAILY RF: 0 albuterol sulfate 90 mcg/actuation HFA aerosol inhaler 2 puff INHALATION Q4H PRN (Reason: Shortness Of Breath) RF: 0 Discharge Orders: Discharge ED (Routine); Ordered 09/21/20 Ordered By: Damaris Bocanegra Referrals: Brad Lara MD [Primary Care Provider] - Patient Instructions: Opioid Safety Activity Restrictions/Additional Instructions: [facility] is committed to fighting the nationwide opiate epidemic. We are providing ALL patients with information regarding opiate safety. If you received opiate pain medication during your stay or if you received a prescription for opiate pain medication-please review this handout. If not, you may disregard. Thank you. You need to return to the emergency department for worsening abdominal pain, pain not controlled with oral pain medications, worsening dizziness, racing heart rate, passing out episodes, severe vaginal bleeding, repetitive episodes of vomiting or diarrhea, fevers, or any other concerns you may have. I hope you begin to feel better soon. Stand Alone Forms: Work/School Release Coding Level of Care Code ED Geophysicist for Yajaira Fwd Exam Comprehensive
[2020-09-21 10:47] LABS: Basophils % 0.4 %; Eosinophils # 0.2 10^3/uL (0.0-0.8); Hemoglobin 13.5 g/dL (11.5-15.3); Lymphocytes # 1.6 10^3/uL (0.8-4.8); Lymphocytes % 30.8 %; Mean Corpuscular HGB Conc 35.5 g/dL (30.0-36.0); Mean Corpuscular Hemoglobin 29.9 pg (28.0-34.0); Mean Corpuscular Volume 84.3 fL (81-99); Mean Platelet Volume 10.5 fL (7.4-10.4); Monocytes # 0.4 10^3/uL (0.2-0.9); Monocytes % 8.1 %; Neutrophils # 3.07 10^3/uL (1.8-7.7); Neutrophils % 57.5 %; Nucleated Red Blood Cells % 0 %; Platelet Count 268 10^3/cmm (130-400); Red Blood Count 4.51 10^6/uL (4.1-5.3); Red Cell Distribution Width 12.1 % (12.1-15.1); White Blood Count 5.3 10^3/uL (4.0-10.0)
--- NOTE | 2020-09-21 10:52 | CT_ITS ---
WS: [id number] CT ABDOMEN PELVIS TECHNIQUE: Contrast-enhanced CT of the abdomen and pelvis with coronal and sagittal reformatted image s. CLINICAL INFORMATION: lower abdominal pain COMPARISON: CT June 2011 DLP: 1510.[address] scans at [facility] use at least one of these dose optimization techniques: automat ed exposure control; mA and/or kV adjustment per patient size (includes targeted exams where dose is matched to clinical indication); or iterative reconstruction. FINDINGS: Mild diffuse fatty infiltration the liver. Cholecystectomy clips. Normal portal vein and splenic vein . Normal pancreas. Spleen is normal. Lung bases are well aerated. Adrenal glands are normal. Normal r enal parenchymal enhancement. No hydronephrosis. Normal caliber abdominal aorta. Peripherally enhancing right ovarian cyst or corpus luteum cyst measuring 1.8 x 1.2 CM. Small amount of free fluid in the pelvis and about the right ovary. Retroflexed uterus. No evidence of small or la rge bowel obstruction. Normal sigmoid colon. Evidence of prior appendectomy. CT/CT abdomen pelvis w con* [id number] IMPRESSION: 1. Peripheral enhancing right ovarian cyst or corpus luteum cyst measuring 1.2 x 1.8 cm. Small amount of fluid about the right ovary and in the cul-de-sac. 2. Retroflexed uterus. 3. Mild diffuse fatty infiltration of the liver. Prior cholecystectomy. 4. Normal renal parenchymal enhancement. No hydronephrosis. 5. Fat-containing umbilical hernia. 6. No other acute findings.
[2020-09-21 11:06] LABS: HCG, Serum Qual Negative (Negative)
[2020-09-21] MEDS: sodium chloride 0.9% 1,000 ML 999 ML IV (11:07)
--- NOTE | 2020-09-21 11:08 | US_ITS ---
WS: [id number] ULTRASOUND PELVIS TECHNIQUE: Transvaginal. CLINICAL INFORMATION: sudden severe lower abdominal/pelvic pain LMP: : No. COMPARISON: None. FINDINGS: Uterus Orientation: Anteverted. Size: 8.5 x 3.5 x 5.5 cm Masses: None. Cervix: Normal. Endometrium: 6.8 mm Adnexa: Small hemorrhagic cyst right ovary measuring 10 mm. Right ovary size: 3.5 x 1.8 x 2.6 cm Left ovary size: 2.8 x 1.4 x 2.3 cm. Free fluid: Small amount of free fluid in the cul-de-sac. Other findings: None. US/US transvaginal [id number] IMPRESSION: 1. Normal uterus and endometrium. Endometrium measures 6.8 mm. 2. Normal vascularity to both ovaries. Multifollicular ovaries bilaterally. 3. Small amount of free fluid in the cul-de-sac. 4. Small hemorrhagic cyst right ovary measuring 10 mm.
[2020-09-21 11:13] LABS: Alanine Aminotransferase 24 U/L (0-33); Albumin Level 4.5 g/dL (3.5-5.2); Alkaline Phosphatase 59 IU/L (35-105); Anion Gap 19.8 (5-19); Aspartate Amino Transferase 35 U/L (0-32); Blood Urea Nitrogen 12 mg/dL (6-20); Calcium 9.7 mg/dL (8.5-10.5); Carbon Dioxide 20 mmol/L (22-29); Chloride 102 mmol/L (98-107); Globulin 2.8 g/dL (1.3-4.6); Glucose 85 mg/dL (65-115); Osmolality Calculated 285 mOsm/kg (285-295); Potassium 3.8 mmol/L (3.5-5.1); Sodium 138 mmol/L (136-145); Total Bilirubin 0.4 mg/dL (0.15-1.2); Total Protein 7.3 g/dL (6.6-8.7)
[2020-09-21 11:27] LABS: Add Urine Microscopic? NO
[2020-09-21] MEDS: iohexol 300 mg/mL 100 mL Btl IV (11:30)
[2020-09-21] MEDS: morphine 4 mg/mL SDV 1 mL IVP (11:35)
[2020-09-21] MEDS: ondansetron 2 mg/ML SDV 2 mL 4 MG IVP (11:35)
[2020-09-21 11:36] LABS: Bilirubin Urine Neg (Negative); Blood Urine Neg (Negative); Glucose Urine UA Norm (Normal); Ketones Urine 1+ (Negative); Leukocyte Esterase Urine Negative (Negative); Nitrate Urine Negative (Negative); Protein Urine Neg (Negative); Sulfosalicylic Acid Urine Negative (Negative); Urine Appearance Clear (CLEAR); Urine Color Yellow (Yellow); Urobilinogen Urine Norm (Negative); pH Urine 8 (5-7)
[2020-09-21] MEDS: diphenhydrAMINE 50 mg/mL SDV 1mL 25 MG IVP (13:10)
[2020-09-21] MEDS: HYDROmorphone 1 mg/mL INJ 1 mL 0.5 MG IVP (13:11)
== END 2020-09-21 13:42 | disposition home or self-care (01) ==
PROVIDERS: Emergency Provider Physician Assistant; PCP Family Medicine
DX: N83.201 Unspecified ovarian cyst, right side (principal)
CPT/HCPCS: 74177; 76830; 80053; 81003; 84703; 85025; 96361; 96374; 96375; 99284; J1170; J1200; J2270; J2405; J7030; Q9967

== ENCOUNTER 2020-09-24 15:46 | Emergency (ER) | payer BC, SELFPAY ==
[2020-09-24 16:05] VITALS: BP 107/72; PULSE 79; RESP 16; TEMP 36.6; O2SAT 97
[2020-09-24] MEDS: sodium chloride 0.9% 1,000 ML 999 ML IV (16:20)
[2020-09-24] MEDS: ondansetron 2 mg/ML SDV 2 mL 4 MG IVP (16:20)
[2020-09-24 16:29] LABS: Basophils % 0.5 %; Eosinophils # 0.3 10^3/uL (0.0-0.8); Hematocrit 38.7 % (37.0-47.0); Lymphocytes # 1.6 10^3/uL (0.8-4.8); Lymphocytes % 25.8 %; Mean Corpuscular HGB Conc 33.6 g/dL (30.0-36.0); Mean Corpuscular Volume 86.4 fL (81-99); Mean Platelet Volume 10.3 fL (7.4-10.4); Monocytes # 0.5 10^3/uL (0.2-0.9); Monocytes % 7.5 %; Neutrophils # 3.89 10^3/uL (1.8-7.7); Neutrophils % 61.9 %; Nucleated Red Blood Cells % 0 %; Platelet Count 286 10^3/cmm (130-400); Red Blood Count 4.48 10^6/uL (4.1-5.3); Red Cell Distribution Width 12.2 % (12.1-15.1); White Blood Count 6.3 10^3/uL (4.0-10.0)
--- NOTE | 2020-09-24 16:35 | W.ED.ABDPA2 ---
HPI - Abdominal Pain General: Chief Complaint: Abdominal Pain Stated Complaint: abd pain, nausea, dizziness Time Seen by Provider: 09/24/20 16:05 History of Present Illness: HPI narrative: 29-year-old female presents emergency room complaining of pelvic pain. She was seen earlier this week and had a small right hemorrhagic cyst. She still having some pelvic pain and cramping and discomfort she was concerned with bleeding and presented to the emergency room. She denies any fever sweats or chills. MD elicited complaint: other (L sided pelvic pain) Pertinent past history: other (ovarian cysts) Onset (ago): day(s) Pain Consistency: constant Location: Pelvis (L) Severity: moderate Quality: cramping Radiation: none Migration to: no migration Exacerbating factors: nothing Relieving factors: nothing Associated Symptoms: Reports GI cramping; Denies anorexia, belching, bloating, change in bowel habits, change in stool character, chills, coffee ground emesis, constipation, diarrhea, dyspepsia, dysuria, fever(s), heartburn, hematochezia, hematuria, hematemesis, fecal incontinence, loose stools, melena, nausea, poor appetite, syncope and vomiting Related Data: Date of Last Menstrual Period: 09/03/20 Review of Systems Const: Denies: fever(s) ENMT: Denies: throat pain, ear or mastoid pain, nasal discharge or nasal congestion Card: Denies: syncope Resp: Denies: dyspnea, productive cough or non-productive cough GI: Reports: GI cramping; Denies: nausea, vomiting, hematemesis, coffee ground emesis, heartburn, diarrhea, constipation, bloating, belching, fecal incontinence, change in bowel habits, change in stool character, hematochezia or melena : Denies: dysuria or hematuria Skin/Breast: Denies: rash or pruritus PFSH ED PFSH: Medical History Unspecified asthma, uncomplicated Surgical History History of nasal sinusotomy (~2008) Balloon sinuplasty, Thomas Alvarado,[place] S/P adenoidectomy (~2008) Thomas Alvarado [place] S/P appendectomy (07/05/11) Diagnotic Laparoscopy with appendectomy. Diagnosis: Right lower quadrant pain, probably mesenteric adenitis. Performed by Dr. Bravo at [facility] in [place], [place]. 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 Dr. Major @ [place], [place]. S/P tonsillectomy (~2009) Dr. Wang, [place], [place] teeth extracted (~2015) Dr. Patterson [place], [place] Family History Grandmother Clotting disorder Deep vein thrombosis - Maternal grandmother and Maternal great uncle Stroke Multiple extended family history Dementia Vascular, with endstage COPD Lung disease Smoking induced Mother Psychiatric illness Bipolar Denies family history of Diabetes CAD (coronary artery disease) Hyperlipidemia Chronic kidney disease (CKD) Suicide Anesthesia complication Bleeding disorder Family history of premature coronary artery disease Cancer Hypertension Social History Smoking and tobacco status: never smoked Alcohol intake: current Alcohol intake frequency: holidays/special occasions only Female Reproductive History: Date of last menstrual period: 09/03/20 Physical Exam Const: COMMON NORMALS: no acute distress GENERAL APPEARANCE: cooperative and comfortable ORIENTATION/CONSCIOUSNESS: Yes awake, Yes oriented to person, Yes oriented to place and Yes oriented to time HENMT: COMMON NORMALS: normocephalic, atraumatic, hearing grossly normal bilaterally, external ears normal, EAC's normal, TM's normal bilaterally, Normal nasal mucous membranes and turbinates present, moist oral mucous membranes and oropharynx normal HEAD & SCALP: normocephalic and atraumatic NOSE: Normal nasal mucous membranes and turbinates present EXTERNAL EAR: Yes external ears normal EXTERNAL AUDITORY CANAL: EAC's normal TYMPANIC MEMBRANE: TM's normal bilaterally Neck/C-Spine: COMMON NORMALS: no JVD Resp: COMMON NORMALS: normal respiratory effort, No retractions, No use of accessory muscles and clear to auscultation bilaterally AUSCULTATION: clear to auscultation bilaterally Cardio: COMMON NORMALS: no JVD, regular rate, regular rhythm and No murmurs present (Cardio) RATE: regular rate RHYTHM: regular rhythm GI: COMMON NORMALS: Soft to palpation and No hepatosplenomegaly present AUSCULTATION: Yes normoactive bowel sounds PALPATION: Yes Soft to palpation, No Tenderness to palpation present (GI), No Guarding due to palpation present (GI) and Yes No hepatosplenomegaly present Extremity: COMMON NORMALS: normal to inspection, capillary refill normal, no clubbing, cyanosis or edema, no calf tenderness and no pedal edema Neuro: SENSORIUM/ORIENTATION: Yes oriented to person, Yes oriented to place and Yes oriented to time Skin: COMMON NORMALS: no rashes or lesions noted GENERAL SKIN EXAM: no rashes or lesions noted Course Vital Signs: Vital signs: Vital Signs Temperature 97.9 F 09/24/20 16:05 Pulse Rate 59 L 09/24/20 18:32 Respiratory Rate 18 09/24/20 18:32 Blood Pressure 105/75 09/24/20 18:32 Pulse Oximetry 99 09/24/20 18:32 MDM - Abdominal Pain MDM Narrative: Medical decision making narrative: Ultrasound shows small hemorrhagic cyst with fluid. No vaginal discharge no bleeding. No fever while here. White count is normal. Urine negative. Discussed different options patient prefers continue with anti-inflammatory and following up with BODY SPECIALIST if not improving Lab Data: Labs: Lab Results 09/24/20 09/24/20 09/24/20 Range/Units 16:20 16:20 16:20 WBC 6.3 (4.0-10.0) 10^3/ uL RBC 4.48 (4.1-5.3) 10^6/u L Hgb 13.0 (11.5-15.3) g/dL Hct 38.7 (37.0-47.0) % MCV 86.4 (81-99) fL MCH 29.0 (28.0-34.0) pg MCHC 33.6 (30.0-36.0) g/dL RDW 12.2 (12.1-15.1) % Plt Count 286 (130-400) 10^3/c mm MPV 10.3 (7.4-10.4) fL Neut % (Auto) 61.9 % Lymph % (Auto) 25.8 % [place] % (Auto) 7.5 % Eos % (Auto) 4.0 % Baso % (Auto) 0.5 % Neut # (Auto) 3.89 (1.8-7.7) 10^3/u L Lymph # (Auto) 1.6 (0.8-4.8) 10^3/u L [place] # (Auto) 0.5 (0.2-0.9) 10^3/u L Eos # (Auto) 0.3 (0.0-0.8) 10^3/u L Baso # (Auto) 0.0 (0.0-0.1) 10^3/u L Nucleated RBC % (a uto) 0 % Nucleated RBCs # 0.0 /100WBC Sodium 136 (136-145) mmol/L Potassium 3.7 (3.5-5.1) mmol/L Chloride 104 (98-107) mmol/L Carbon Dioxide 24 (22-29) mmol/L Anion Gap 11.7 (5-19) BUN 7 (6-20) mg/dL Creatinine 0.6 (0.5-0.9) mg/dL GFR Calculation 118.2 (90-130) mL/min Glucose 89 (65-115) mg/dL Calculated Osmolal ity 279 L (285-295) mOsm/k g Calcium 9.3 (8.5-10.5) mg/dL Total Bilirubin 0.4 (0.15-1.2) mg/dL AST 26 (0-32) U/L ALT 54 H (0-33) U/L Alkaline Phosphata se 63 (35-105) IU/L Creatine Kinase 205 H (26-192) U/L Total Protein 6.9 (6.6-8.7) g/dL Albumin 4.4 (3.5-5.2) g/dL Globulin 2.5 (1.3-4.6) g/dL Lipase 25 (13-60) U/L HCG, Qual Negative (Negative) Urine Color (Yellow) Urine Appearance (CLEAR) Urine pH (5-7) Ur Specific Gravit y (1.005-1.030) Urine Protein (Negative) Urine Glucose (UA) (Normal) Urine Ketones (Negative) Urine Blood (Negative) Urine Nitrate (Negative) Urine Bilirubin (Negative) Urine Urobilinogen (Negative) mg/dL Ur Leukocyte Maddie ase (Negative) 09/24/20 Range/Units 17:20 WBC (4.0-10.0) 10^3/ uL RBC (4.1-5.3) 10^6/u L Hgb (11.5-15.3) g/dL Hct (37.0-47.0) % MCV (81-99) fL MCH (28.0-34.0) pg MCHC (30.0-36.0) g/dL RDW (12.1-15.1) % Plt Count (130-400) 10^3/c mm MPV (7.4-10.4) fL Neut % (Auto) % Lymph % (Auto) % [place] % (Auto) % Eos % (Auto) % Baso % (Auto) % Neut # (Auto) (1.8-7.7) 10^3/u L Lymph # (Auto) (0.8-4.8) 10^3/u L [place] # (Auto) (0.2-0.9) 10^3/u L Eos # (Auto) (0.0-0.8) 10^3/u L Baso # (Auto) (0.0-0.1) 10^3/u L Nucleated RBC % (a uto) % Nucleated RBCs # /100WBC Sodium (136-145) mmol/L Potassium (3.5-5.1) mmol/L Chloride (98-107) mmol/L Carbon Dioxide (22-29) mmol/L Anion Gap (5-19) BUN (6-20) mg/dL Creatinine (0.5-0.9) mg/dL GFR Calculation (90-130) mL/min Glucose (65-115) mg/dL Calculated Osmolal ity (285-295) mOsm/k g Calcium (8.5-10.5) mg/dL Total Bilirubin (0.15-1.2) mg/dL AST (0-32) U/L ALT (0-33) U/L Alkaline Phosphata se (35-105) IU/L Creatine Kinase (26-192) U/L Total Protein (6.6-8.7) g/dL Albumin (3.5-5.2) g/dL Globulin (1.3-4.6) g/dL Lipase (13-60) U/L HCG, Qual (Negative) Urine Color Straw (Yellow) Urine Appearance Clear (CLEAR) Urine pH 7 (5-7) Ur Specific Gravit y 1.005 (1.005-1.030) Urine Protein Neg (Negative) Urine Glucose (UA) Norm (Normal) Urine Ketones Negative (Negative) Urine Blood Neg (Negative) Urine Nitrate Negative (Negative) Urine Bilirubin Neg (Negative) Urine Urobilinogen Norm (Negative) mg/dL Ur Leukocyte Maddie ase Negative (Negative) Discharge Plan Discharge Patient Disposition: Home Clinical Impression: Pelvic pain, Hemorrhagic cyst of right ovary Condition: Stable Prescriptions: New diclofenac sodium 75 mg tablet,delayed release (DR/EC) 75 mg PO Q12H PRN (Reason: pain) Qty: 20 RF: 0 No Action fluoxetine 40 mg capsule 40 mg PO DAILY RF: 0 albuterol sulfate 90 mcg/actuation HFA aerosol inhaler 2 puff INHALATION Q4H PRN (Reason: Shortness Of Breath) RF: 0 hydrocodone-acetaminophen 5-325 mg tablet 1 tab PO Q6H PRN (Reason: pain) Qty: 20 RF: 0 ondansetron HCl [Zofran] 4 mg tablet 4 mg PO Q6H PRN (Reason: nausea and vomiting) Qty: 14 RF: 0 Discharge Orders: Discharge ED (Routine); Ordered 09/24/20 Ordered By: Tyrell Adam Referrals: Brad Lara MD [Primary Care Provider] - Patient Instructions: Opioid Safety Activity Restrictions/Additional Instructions: If not improving follow-up with your primary care provider. Coding Level of Care Code ED Staff Attorney for Yajaira Lal
[2020-09-24] MEDS: ketorolac 30 mg/mL INJ IVP (16:41)
[2020-09-24 16:44] VITALS: BP 94/70; PULSE 61; O2SAT 98
[2020-09-24 16:56] LABS: Alanine Aminotransferase 54 U/L (0-33); Albumin Level 4.4 g/dL (3.5-5.2); Alkaline Phosphatase 63 IU/L (35-105); Anion Gap 11.7 (5-19); Aspartate Amino Transferase 26 U/L (0-32); Blood Urea Nitrogen 7 mg/dL (6-20); Calcium 9.3 mg/dL (8.5-10.5); Carbon Dioxide 24 mmol/L (22-29); Chloride 104 mmol/L (98-107); Creatine Phosphokinase 205 U/L (26-192); Globulin 2.5 g/dL (1.3-4.6); Glomerular Filtration Rate 118.2 mL/min (90-130); Glucose 89 mg/dL (65-115); HCG, Serum Qual Negative (Negative); Lipase 25 U/L (13-60); Osmolality Calculated 279 mOsm/kg (285-295); Potassium 3.7 mmol/L (3.5-5.1); Sodium 136 mmol/L (136-145); Total Bilirubin 0.4 mg/dL (0.15-1.2); Total Protein 6.9 g/dL (6.6-8.7)
[2020-09-24 17:41] LABS: Add Urine Microscopic? NO
[2020-09-24 17:47] LABS: Bilirubin Urine Neg (Negative); Blood Urine Neg (Negative); Glucose Urine UA Norm (Normal); Ketones Urine Negative (Negative); Leukocyte Esterase Urine Negative (Negative); Nitrate Urine Negative (Negative); Protein Urine Neg (Negative); Specific Gravity, Urine 1.005 (1.005-1.030); Urine Appearance Clear (CLEAR); Urine Color Straw (Yellow); Urobilinogen Urine Norm (Negative); pH Urine 7 (5-7)
[2020-09-24 18:32] VITALS: BP 105/75; PULSE 59; RESP 18; O2SAT 99
== END 2020-09-24 18:34 | disposition home or self-care (01) ==
PROVIDERS: Emergency Provider Family Medicine; PCP Family Medicine
DX: N83.201 Unspecified ovarian cyst, right side (principal)
CPT/HCPCS: 80053; 81003; 82550; 83690; 84703; 85025; 96361; 96374; 96375; 99283; J1885; J2405; J7030

== ENCOUNTER 2021-04-05 08:19 | Outpatient (CLI) | payer OTHER, SELFPAY ==
[2021-04-05 08:39] LABS: Basophils % 0.6 %; Eosinophils # 0.5 10^3/uL (0.0-0.8); Eosinophils % 6.9 %; Hemoglobin 12.8 g/dL (11.5-15.3); Lymphocytes % 30.8 %; Mean Corpuscular HGB Conc 32.8 g/dL (30.0-36.0); Mean Corpuscular Hemoglobin 28.4 pg (28.0-34.0); Mean Corpuscular Volume 86.7 fl (81-99); Mean Platelet Volume 10.3 fL (7.4-10.4); Monocytes # 0.4 10^3/uL (0.2-0.9); Monocytes % 6.6 %; Neutrophils # 3.56 10^3/uL (1.8-7.7); Neutrophils % 54.9 %; Nucleated Red Blood Cells % 0 %; Platelet Count 285 10^3/cmm (130-400); Red Cell Distribution Width 11.9 % (12.1-15.1); White Blood Count 6.5 10^3/uL (4.0-10.0)
[2021-04-05 09:01] LABS: Partial Thromboplastin Time 29.6 SECONDS (23.9-36.7)
[2021-04-05 09:21] LABS: Alanine Aminotransferase 10 U/L (0-33); Albumin Level 4.3 g/dL (3.5-5.2); Alkaline Phosphatase 60 IU/L (35-105); Anion Gap 12.8 (5-19); Aspartate Amino Transferase 14 U/L (0-32); Blood Urea Nitrogen 16 mg/dL (6-20); Carbon Dioxide 26 mmol/L (22-29); Chloride 105 mmol/L (98-107); Chol HDL Ratio 3.79 mg/dL (0.0-4.40); Cholesterol 148 mg/dL (0-200); Globulin 2.5 g/dL (1.3-4.6); Glomerular Filtration Rate 117.4 mL/min (90-130); Glucose 91 mg/dL (65-115); HDL Cholesterol 39 mg/dL (60-100); LDL Cholesterol Calculated 88 mg/dL (50-129); LDL HDL Ratio 2.26 RATIO (0.00-3.22); Osmolality Calculated 291 mOsm/kg (285-295); Potassium 3.8 mmol/L (3.5-5.1); Sodium 140 mmol/L (136-145); Total Bilirubin 0.3 mg/dL (0.15-1.2); Total Protein 6.8 g/dL (6.6-8.7); Triglycerides 105 mg/dL (0-150)
== END 2021-04-05 08:20 | disposition home or self-care (01) ==
LOC: LAB 08:24
PROVIDERS: PCP Family Medicine; Visit Provider Family Medicine
DX: B94.8 Sequelae of other specified infectious and parasitic diseases (principal); J45.20 Mild intermittent asthma, uncomplicated; R00.2 Palpitations; R79.89 Other specified abnormal findings of blood chemistry; Z76.89 Persons encountering health services in other specified circumstances; Z82.49 Family history of ischemic heart disease and other diseases of the circulatory system
CPT/HCPCS: 36415; 80053; 80061; 84443; 85025; 85610; 85730

== ENCOUNTER 2021-05-17 11:22 | Emergency (ER) | payer OTHER, SELFPAY ==
[2021-05-17 11:26] VITALS: BP 105/70; PULSE 71; RESP 18; TEMP 36.7; O2SAT 99; BMI 27.4
--- NOTE | 2021-05-17 12:11 | W.ED.DIZZY ---
HPI - Dizziness General: Chief Complaint: Dizziness Stated Complaint: DIZZY, LIGHT HEADED, BLURRED VISION Time Seen by Provider: 05/17/21 11:59 History of Present Illness: HPI Narrative: 30-year-old female with history of palpitations presents due to palpitations chest pain shortness of breath. States that she has had palpitations in the past but for the past 6-week has had intermittent chest pain shortness of breath. Scribes the pain is achy intermittent nonexertional and nonpleuritic. Denies any cough fever chills. Denies lower extremity pain or swelling. States she does have family history of DVTs but has never had DVT or PE herself. States she did not syncopized but felt lightheaded like she was about to. Denies any vertigo. Review of Systems Narrative: - CONSTITUTIONAL: Denies weight loss, fever and chills. - HEENT: Denies changes in vision and hearing. - RESPIRATORY: As above - CV: As above - GI: Denies abdominal pain, nausea, vomiting and diarrhea. - : Denies dysuria and urinary frequency. - MSK: Denies myalgia and joint pain. - SKIN: Denies rash and pruritus. - NEUROLOGICAL: Denies headache, weakness, numbness. - PSYCHIATRIC: Denies suicidal ideation [facility] ED PFSH: Medical History (Updated 05/17/21 @ 15:13 by Aravind Becerra MD) Unspecified asthma, uncomplicated Surgical History History of nasal sinusotomy (~2008) Balloon sinuplasty, Dr. Wang, [place], [place] S/P adenoidectomy (~2008) Dr. Wang, [place], [place] S/P appendectomy (07/05/11) Diagnotic Laparoscopy with appendectomy. Diagnosis: Right lower quadrant pain, probably mesenteric adenitis. Performed by Dr. Bravo at [facility] in [place], [place]. 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 Dr. Major @ [place], [place]. S/P tonsillectomy (~2009) Dr. Wang, [place], [place] teeth extracted (~2015) Dr. Patterson [place], [place] Family History Grandmother Clotting disorder Deep vein thrombosis - Maternal grandmother and Maternal great uncle Stroke Multiple extended family history Dementia Vascular, with endstage COPD Lung disease Smoking induced Mother Psychiatric illness Bipolar Denies family history of Diabetes CAD (coronary artery disease) Hyperlipidemia Chronic kidney disease (CKD) Suicide Anesthesia complication Bleeding disorder Family history of premature coronary artery disease Cancer Hypertension Social History Smoking and tobacco status: never smoked Alcohol intake: current Alcohol intake frequency: holidays/special occasions only Female Reproductive History: Date of last menstrual period: 09/03/20 Physical Exam Narrative: EXAM NARRATIVE: - GENERAL: Alert and oriented x 3. No acute distress. Well-nourished. - EYES: EOMI. Anicteric. - HENT: Atraumatic, no C-spine tenderness. Moist mucous membranes. No scleral icterus. No cervical lymphadenopathy. - LUNGS: Clear to auscultation bilaterally. No accessory muscle use. Equal lung sounds bilaterally. No respiratory distress. - CARDIOVASCULAR: Regular rate and rhythm. No murmur. No JVD. - ABDOMEN: Soft, non-tender and non-distended. Negative CVA tenderness bilaterally, no rebound or guarding, negative Raza sign. No palpable masses. - EXTREMITIES: No edema. Non-tender. - SKIN: No rashes or lesions. Warm. - NEUROLOGIC: No meningismus or focal neurological deficits. CN II-XII grossly intact. - PSYCHIATRIC: Cooperative. Appropriate mood and affect. Course Vital Signs: Vital signs: Vital Signs Temperature 97.9 F 05/17/21 15:03 Pulse Rate 61 05/17/21 15:03 Respiratory Rate 15 05/17/21 15:03 Blood Pressure 107/63 05/17/21 15:03 Pulse Oximetry 100 05/17/21 15:03 MDM - Dizziness MDM Narrative: Medical decision making narrative: 30-year-old female presents with palpitations and presyncope. Physical exam unremarkable. EKG and troponin do not reveal any sign of acute ischemia or other acute abnormality or any sign of arrhythmia. Kept on engagement manager without acute events. Lab work otherwise unremarkable. D-dimer is negative. X-ray does not reveal pneumothorax or consolidation. At this time I believe patient would be safe for discharge and outpatient follow-up. Return precautions provided. Plan was reviewed with the patient who expressed understanding. Questions answered. Patient will follow up with PCP. Patient discharged in stable condition. Lab Data: Labs: Lab Results 05/17/21 05/17/21 05/17/21 12:55 12:59 12:59 WBC RBC Hgb Hct MCV MCH MCHC RDW Plt Count MPV Neut % (Auto) Lymph % (Auto) [place] % (Auto) Eos % (Auto) Baso % (Auto) Neut # (Auto) Lymph # (Auto) [place] # (Auto) Eos # (Auto) Baso # (Auto) Nucleated RBC % (a uto) Nucleated RBCs # D-Dimer Sodium Potassium Chloride Carbon Dioxide Anion Gap BUN Creatinine GFR Calculation Glucose Calculated Osmolal ity Calcium Total Bilirubin AST ALT Alkaline Phosphata se Troponin T Baselin e NT-Pro-B Natriuret Pep Total Protein Albumin Globulin TSH HCG, Qual Negative (Negative) Urine Color Straw (Yellow) Urine Appearance Clear (CLEAR) Urine pH 7 (5-7) Ur Specific Gravit y 1.005 (1.005-1.030) Urine Protein Neg (Negative) Urine Glucose (UA) Norm (Normal) Urine Ketones Negative (Negative) Urine Blood 3+ H (Negative) Urine Nitrate Negative (Negative) Urine Bilirubin Neg (Negative) Urine Urobilinogen Norm mg/dL mg/dL (Negative) Ur Leukocyte Maddie ase Negative (Negative) Amorphous Sediment Not Reportable SARS-CoV-2 Ag (Rap id) Negative (Negative) 05/17/21 05/17/21 05/17/21 13:00 13:00 13:00 WBC 6.1 10^3/uL 10^3/ uL (4.0-10.0) RBC 4.67 10^6/uL 10^6 /uL (4.1-5.3) Hgb 13.4 g/dL g/dL (11.5-15.3) Hct 40.4 % % (37.0-47.0) MCV 86.5 fl fl (81-99) MCH 28.7 pg pg (28.0-34.0) MCHC 33.2 g/dL g/dL (30.0-36.0) RDW 12.1 % % (12.1-15.1) Plt Count 276 10^3/cmm 10^3 /cmm (130-400) MPV 10.4 fL fL (7.4-10.4) Neut % (Auto) 51.8 % % Lymph % (Auto) 36.6 % % [place] % (Auto) 6.4 % % Eos % (Auto) 4.4 % % Baso % (Auto) 0.5 % % Neut # (Auto) 3.16 10^3/uL 10^3 /uL (1.8-7.7) Lymph # (Auto) 2.2 10^3/uL 10^3/ uL (0.8-4.8) [place] # (Auto) 0.4 10^3/uL 10^3/ uL (0.2-0.9) Eos # (Auto) 0.3 10^3/uL 10^3/ uL (0.0-0.8) Baso # (Auto) 0.0 10^3/uL 10^3/ uL (0.0-0.1) Nucleated RBC % (a uto) 0 % % Nucleated RBCs # 0.0 /100WBC /100W BC D-Dimer <= 0.27 ug/mIFEU ug/mIFEU (0-0.59) Sodium 140 mmol/L mmol/L (136-145) Potassium 3.7 mmol/L mmol/L (3.5-5.1) Chloride 102 mmol/L mmol/L (98-107) Carbon Dioxide 32 mmol/L H mmol/ L (22-29) Anion Gap 9.7 (5-19) BUN 14 mg/dL mg/dL (6-20) Creatinine 0.6 mg/dL mg/dL (0.5-0.9) GFR Calculation 117.4 mL/min mL/m in (90-130) Glucose 71 mg/dL mg/dL (65-115) Calculated Osmolal ity 289 mOsm/kg mOsm/ kg (285-295) Calcium 9.4 mg/dL mg/dL (8.5-10.5) Total Bilirubin 0.3 mg/dL mg/dL (0.15-1.2) AST 15 U/L U/L (0-32) ALT 10 U/L U/L (0-33) Alkaline Phosphata se 57 IU/L IU/L (35-105) Troponin T Baselin e NT-Pro-B Natriuret Pep 186 pg/mL H pg/mL (0-125) Total Protein 7.1 g/dL g/dL (6.6-8.7) Albumin 4.7 g/dL g/dL (3.5-5.2) Globulin 2.4 g/dL g/dL (1.3-4.6) TSH 1.96 uIU/mL uIU/m L (0.27-4.20) HCG, Qual Urine Color Urine Appearance Urine pH Ur Specific Gravit y Urine Protein Urine Glucose (UA) Urine Ketones Urine Blood Urine Nitrate Urine Bilirubin Urine Urobilinogen Ur Leukocyte Maddie ase Amorphous Sediment SARS-CoV-2 Ag (Rap id) 05/17/21 13:00 WBC RBC Hgb Hct MCV MCH MCHC RDW Plt Count MPV Neut % (Auto) Lymph % (Auto) [place] % (Auto) Eos % (Auto) Baso % (Auto) Neut # (Auto) Lymph # (Auto) [place] # (Auto) Eos # (Auto) Baso # (Auto) Nucleated RBC % (a uto) Nucleated RBCs # D-Dimer Sodium Potassium Chloride Carbon Dioxide Anion Gap BUN Creatinine GFR Calculation Glucose Calculated Osmolal ity Calcium Total Bilirubin AST ALT Alkaline Phosphata se Troponin T Baselin e 6 ng/L ng/L (0-10) NT-Pro-B Natriuret Pep Total Protein Albumin Globulin TSH HCG, Qual Urine Color Urine Appearance Urine pH Ur Specific Gravit y Urine Protein Urine Glucose (UA) Urine Ketones Urine Blood Urine Nitrate Urine Bilirubin Urine Urobilinogen Ur Leukocyte Maddie ase Amorphous Sediment SARS-CoV-2 Ag (Rap id) EKG Data^: EKG 1: Other EKG comments: Normal sinus rhythm, rate of 61, no signs of Brugada, WPW, prolonged QT, HOCM, or acute ischemia Discharge Plan Discharge Patient Disposition: Home Clinical Impression: Heart palpitations Condition: Stable Prescriptions: No Action albuterol sulfate 90 mcg/actuation HFA aerosol inhaler 2 puff INHALATION Q4H PRN (Reason: Shortness Of Breath) Qty: 8.5 RF: 2 Xyzal 5 mg Tablet 5 mg PO QAM RF: 0 fluoxetine 40 mg capsule 40 mg PO QAM RF: 0 Discharge Orders: Discharge ED (Routine); Ordered 05/17/21 Ordered By: Aravind Becerra Referrals: Wai William DO [Primary Care Provider] - 1-3 days Patient Instructions: Heart Palpitations (ED), Near Syncope (ED), Opioid Safety Coding Level of Care Code ED Activity Aide for Yajaira Lal
[2021-05-17 12:28] VITALS: BP 106/78; PULSE 62; RESP 18; TEMP 36.7; O2SAT 100
[2021-05-17 13:10] VITALS: BP 103/73; PULSE 62; RESP 12; O2SAT 100
[2021-05-17 13:22] LABS: Basophils % 0.5 %; Eosinophils # 0.3 10^3/uL (0.0-0.8); Eosinophils % 4.4 %; Hematocrit 40.4 % (37.0-47.0); Hemoglobin 13.4 g/dL (11.5-15.3); Lymphocytes # 2.2 10^3/uL (0.8-4.8); Lymphocytes % 36.6 %; Mean Corpuscular HGB Conc 33.2 g/dL (30.0-36.0); Mean Corpuscular Hemoglobin 28.7 pg (28.0-34.0); Mean Corpuscular Volume 86.5 fl (81-99); Mean Platelet Volume 10.4 fL (7.4-10.4); Monocytes # 0.4 10^3/uL (0.2-0.9); Monocytes % 6.4 %; Neutrophils # 3.16 10^3/uL (1.8-7.7); Neutrophils % 51.8 %; Nucleated Red Blood Cells % 0 %; Platelet Count 276 10^3/cmm (130-400); Red Blood Count 4.67 10^6/uL (4.1-5.3); Red Cell Distribution Width 12.1 % (12.1-15.1); White Blood Count 6.1 10^3/uL (4.0-10.0)
[2021-05-17 13:28] LABS: HCG Qualitative Urine. Negative (Negative)
[2021-05-17 13:41] LABS: Glucose Urine UA Norm (Normal); Ketones Urine Negative (Negative); Protein Urine Neg (Negative); Specific Gravity, Urine 1.005 (1.005-1.030); Urine Appearance Clear (CLEAR); Urine Color Straw (Yellow); pH Urine 7 (5-7)
[2021-05-17 13:42] LABS: Add Urine Microscopic? YES; Bilirubin Urine Neg (Negative); Blood Urine 3+ (Negative); Leukocyte Esterase Urine Negative (Negative); Nitrate Urine Negative (Negative); Urobilinogen Urine Norm (Negative)
[2021-05-17 13:45] LABS: SARS Covid-2 Antigen Negative (Negative)
--- NOTE | 2021-05-17 13:45 | XR_ITS ---
WS: [id number] Portable AP upright chest, 05/17/2021 Clinical Data: sob Comparison: Portable chest, 03/20/2020. Findings: No nodules, masses or effusions are seen. The heart is normal. The pulmonary vascularity is not increased. No pneumonia or pneumothorax is seen. There are monitor leads on the chest wall. XR/XR chest 1V portable [id number] Impression: Negative chest.
[2021-05-17 13:59] LABS: D Dimer <= 0.27 ug/mIFEU (0-0.59)
[2021-05-17 14:10] LABS: Troponin(5th) Baseline 6 ng/L (0-10)
--- NOTE | 2021-05-17 14:11 | ECG_ITS ---
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 Measurements Intervals [place] Rate: 61 P: 59 MS: 167 QRS: 42 QRSD: 96 T: 11 QT: 409 QTc: 415 Interpretive Statements SINUS RHYTHM Compared to ECG 03/20/2020 20:17:56 Sinus arrhythmia no longer present T-wave abnormality no longer present Electronically Signed On 05-18-2021 17:17:58 CDT by Eric Lagunas M.D. [id number]
[2021-05-17 14:15] LABS: Alanine Aminotransferase 10 U/L (0-33); Albumin Level 4.7 g/dL (3.5-5.2); Alkaline Phosphatase 57 IU/L (35-105); Aspartate Amino Transferase 15 U/L (0-32); Blood Urea Nitrogen 14 mg/dL (6-20); Calcium 9.4 mg/dL (8.5-10.5); Chloride 102 mmol/L (98-107); Globulin 2.4 g/dL (1.3-4.6); Glomerular Filtration Rate 117.4 mL/min (90-130); Glucose 71 mg/dL (65-115); NT Pro B Type Natriuretic Pept 186 pg/mL (0-125); Osmolality Calculated 289 mOsm/kg (285-295); Potassium 3.7 mmol/L (3.5-5.1); Sodium 140 mmol/L (136-145); Thyroid Stimulating Hormone 1.96 uIU/mL (0.27-4.20); Total Bilirubin 0.3 mg/dL (0.15-1.2); Total Protein 7.1 g/dL (6.6-8.7)
[2021-05-17 15:03] VITALS: BP 107/63; PULSE 61; RESP 15; TEMP 36.6; O2SAT 100
[2021-05-17 15:24] VITALS: BP 109/70; PULSE 74; RESP 16; TEMP 36.6; O2SAT 97
[2021-05-17 15:30] LABS: Troponin 5 2HR Delta 0 ABS# (0-10)
[2021-05-17 16:08] LABS: Add Urine Culture? No; Bacteria Urine TRACE /hpf; Mucus Urine TRACE /hpf; WBC Urine 0-4 /hpf (0-5)
[2021-05-17 21:04] LABS: Carbon Dioxide 25 mmol/L (22-29)
[2021-05-17 21:05] LABS: Anion Gap 16.7 (5-19)
== END 2021-05-17 15:26 | disposition home or self-care (01) ==
PROVIDERS: Emergency Provider Emergency Medicine; PCP Family Medicine
DX: R00.2 Palpitations (principal); Z82.49 Family history of ischemic heart disease and other diseases of the circulatory system
CPT/HCPCS: 71045; 80053; 81001; 81025; 83880; 84443; 84484; 85025; 85378; 87426; 93005; 99283

== ENCOUNTER → 2021-07-17 09:48 | Outpatient (BNVA) | payer OTHER, SELFPAY | PROVIDERS: PCP Family Medicine; Visit Provider Family Medicine | DX: Z20.828 Contact with and (suspected) exposure to other viral communicable diseases (principal) | CPT/HCPCS: 87426; 87635 ==

== ENCOUNTER 2021-08-07 10:36 | Outpatient (CLI) | payer SELFPAY ==
[2021-08-07 08:58] VITALS: BMI 27.4
[2021-08-07 12:35] VITALS: BP 102/69; PULSE 65; RESP 16; TEMP 36.7; O2SAT 98
== END 2021-08-07 10:37 | disposition home or self-care (01) ==
LOC: OPS 10:38
PROVIDERS: PCP Family Medicine; Visit Provider Family Medicine
DX: U07.1 COVID-19 (principal)
CPT/HCPCS: 96365

== ENCOUNTER 2021-12-28 07:07 | Outpatient (CLI) | payer OTHER, SELFPAY ==
--- NOTE | 2021-12-28 07:22 | XR_ITS ---
WS: [id number] Cervical spine, 3 views, 12/27/2021 Clinical Data: Neck pain, shoulder pain Comparison: Cervical spine, 07/09/2020. Findings: No compression fractures are seen. The disc heights are normal. There is no prevertebral so ft tissue swelling. The odontoid is unremarkable. The soft tissues of the neck and the lung apices ar e normal. XR/XR cervical spine 3V* [id number] Impression: Negative cervical spine.
--- NOTE | 2021-12-28 07:22 | XR_ITS ---
WS: [id number] Thoracic spine, AP and lateral views, 12/27/2021 Clinical Data: Neck, shoulder, thoracic back pain, worsening. Comparison: Thoracic spine, 07/09/2020. Findings: The paravertebral regions are normal. There are clips in the right upper quadrant from a cholecystect caryn. XR/XR thoracic spine 2V [id number] Impression: Negative thoracic spine.
== END 2021-12-28 07:08 | disposition home or self-care (01) ==
LOC: RAD 07:09
PROVIDERS: PCP Family Medicine; Visit Provider Family Medicine
DX: M25.519 Pain in unspecified shoulder (principal); M54.2 Cervicalgia; M54.6 Pain in thoracic spine
CPT/HCPCS: 72040; 72070

== ENCOUNTER → 2022-01-09 15:16 | Outpatient (BNVA) | payer OTHER, SELFPAY | PROVIDERS: PCP Family Medicine; Visit Provider Obstetrics & Gynecology | DX: N39.3 Stress incontinence (female) (male) (principal); N92.6 Irregular menstruation, unspecified; N93.9 Abnormal uterine and vaginal bleeding, unspecified | CPT/HCPCS: 81000; 83001; 84146; 84443; 85025 ==

== ENCOUNTER → 2022-01-19 13:41 | Outpatient (BNVA) | payer OTHER, SELFPAY | PROVIDERS: PCP Family Medicine; Visit Provider Obstetrics & Gynecology | DX: N94.6 Dysmenorrhea, unspecified (principal); N92.1 Excessive and frequent menstruation with irregular cycle; G89.29 Other chronic pain; R10.2 Pelvic and perineal pain | CPT/HCPCS: 76830; 76856 ==

== ENCOUNTER → 2022-03-20 14:19 | Outpatient (BNVA) | payer OTHER, SELFPAY | PROVIDERS: PCP Family Medicine; Visit Provider Obstetrics & Gynecology | DX: B37.2 Candidiasis of skin and nail (principal); N87.1 Moderate cervical dysplasia; N39.46 Mixed incontinence; N81.10 Cystocele, unspecified; N94.6 Dysmenorrhea, unspecified; N92.1 Excessive and frequent menstruation with irregular cycle; N81.2 Incomplete uterovaginal prolapse | CPT/HCPCS: 87624 ==

== ENCOUNTER 2022-03-21 10:52 | Observation (INO) | payer OTHER, SELFPAY ==
--- NOTE | 2022-03-16 12:40 | P.ANESASSM_ITS ---
Pre-Anesthetic Assessment Height/Weight: Height 1.68 m Operation Date: 03/21/22 08:40 Proposed Procedures p Total Vaginal Hysterectomy 30857,Single incision sling 80694,R10.2,N39.46(Not Applicable) - Sly Irwin MD s Sling Single Incision Sling(Not Applicable) - Sly Irwin MD Familial anesthetic complications: PONV Social No alcohol and No tobacco Exam alert, oriented x 3, clear to auscultation bilaterally and regular rate & rhythm Airway Mallampati: Class II Dentition: full Pulmonary Asthma (exercise or allergy-induced; inhaler use couple of times a month) CV/HEM Palpitations (propanolol) None reported Hepatic None reported GI None reported Metabolic None reported Musc/skel None reported Neuropsych None reported Anesthetic Plan ASA status: 2 Anesthesia: General Risk of > 500 ml blood loss (7ml/kg in children): No Medications/Allergies Home Medications Medication Instructions Recorded Confirmed Last Taken Type albuterol sulfate 90 mcg/actuation 2 puff inhalation Q4H PRN 04/06/21 01/30/22 Unknown Rx aerosol inhaler Shortness Of Breath #8.5 grams sumatriptan succinate 25 mg tablet See Rx Instructions PO .COMPLEX 07/11/21 01/30/22 Unknown Rx #10 tabs fluoxetine 40 mg capsule 40 mg PO QAM #90 caps 08/14/21 01/30/22 Unknown Rx levocetirizine 5 mg tablet (Xyzal) 5 mg PO DAILY 01/09/22 01/30/22 Unknown History epinephrine 0.3 mg/0.3 mL 0.3 mg (0.3 mL) IM Q4H PRN 01/18/22 01/30/22 Unknown Rx injection, auto-injector anaphylaxis #2 ea nystatin 100,000 unit/gram topical 1 applic topical DAILY #15 grams 01/18/22 01/30/22 Unknown Rx cream Allergies Allergy/AdvReac Type Severity Reaction Status Date / Time morphine Allergy Agitated, Verified 01/30/22 09:18 Hives [facility] Anesthesia Medical History (Updated 01/18/22 @ 15:37 by Wai William DO) Unspecified asthma, uncomplicated Surgical History History of nasal sinusotomy (~2008) Balloon sinuplasty, Dr. Wang, [place], [place] S/P adenoidectomy (~2008) Dr. Wang, [place], [place] S/P appendectomy (07/05/11) Diagnotic Laparoscopy with appendectomy. Diagnosis: Right lower quadrant pain, probably mesenteric adenitis. Performed by Dr. Bravo at [facility] in [place], [place]. 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 Dr. Major @ [place], [place]. S/P tonsillectomy (~2009) Dr. Wang, [place], [place] teeth extracted (~2015) Dr. Patterson [place], [place] Family History Grandmother Clotting disorder Deep vein thrombosis - Maternal grandmother and Maternal great uncle Stroke Multiple extended family history Dementia Vascular, with endstage COPD Lung disease Smoking induced Mother Psychiatric illness Bipolar Denies family history of Diabetes CAD (coronary artery disease) Hyperlipidemia Chronic kidney disease (CKD) Suicide Anesthesia complication Bleeding disorder Family history of premature coronary artery disease Cancer Hypertension Social History (Updated 01/18/22 @ 15:20 by Abdelrahman Madera LPN) Smoking and tobacco status: never smoked Alcohol intake: never Female Reproductive History Date of last menstrual period: 09/03/20 Data Anesthesia Cardiac Studies: Holter Monitor 05/01/21
[2022-03-21] VITALS (18 sets, daily range): BP systolic 95–128; BP diastolic 57–82; PULSE 61–111; RESP 12–18; TEMP 36.4–36.8; O2SAT 95–100; BMI 28.2
--- NOTE | 2022-03-21 06:35 | P.ANESUD_ITS ---
Pre-Anesthetic Update Pre-Anesthetic Assessment: Date of Surgery/Procedure: 03/21/22 Preop Melanie gnosis: Cystocele, uterine prolapse, abnormal uterine bleeding, dysmenorrhea, dyspa Proposed Procedure: Operation Date: 03/21/22 07:00 Proposed Procedures p Total Vaginal Hysterectomy 67468,Single incision sling 64687,R10.2,N39.46(Not Applicable) - Sly Irwin MD s Sling Single Incision Sling(Not Applicable) - Sly Irwin MD Any changes to Pre-Anesthetic Assessment?: No Last Intake: Intake Last Liquid Date 03/20/22 Last Liquid Time 21:00 Last Solid Date 03/20/22 Last Solid Time 21:00 Vitals: Oxygen Delivery Me thod 03/21/22 06:17 Exam: Pre-Anes Outpt Exam: alert, oriented x 3, clear to auscultation bilaterally and regular rate & rhythm Cardiac Studies: Holter Monitor 05/01/21
--- NOTE | 2022-03-21 06:35 | W.PM.OPSUD ---
Surgery/Procedure H&P Update DATE OF PROCEDURE: March 21, 2022 DATE H&P PERFORMED: 03/20/22 H&P UPDATE INFORMATION: I have reviewed H&P completed within last 30 days, I have examined patient prior to procedure and No changes to prior documentation PREOP DIAGNOSIS: Cystocele, uterine prolapse, abnormal uterine bleeding, dysmenorrhea, dyspa PLANNED PROCEDURE: Operation Date: 03/21/22 07:00 Proposed Procedures p Total Vaginal Hysterectomy 82202,Single incision sling 95466,R10.2,N39.46(Not Applicable) - Sly Irwin MD s Sling Single Incision Sling(Not Applicable) - Sly Irwin MD
[2022-03-21] MEDS: sodium chloride 0.9% 1,000 ML 30 ML IV (07:00)
[2022-03-21] MEDS: scopolamine 1.5 Patch 1 PATCH TRANSDERMA (07:00)
[2022-03-21] MEDS: sodium chloride 0.9% 500 ML IV (07:01)
[2022-03-21 07:14] LABS: Basophils % 0.6 %; Eosinophils # 0.6 10^3/uL (0.0-0.8); Eosinophils % 10.6 %; Hematocrit 38.8 % (37.0-47.0); Hemoglobin 13.3 g/dL (11.5-15.3); Lymphocytes # 1.9 10^3/uL (0.8-4.8); Lymphocytes % 36.4 %; Mean Corpuscular HGB Conc 34.3 g/dL (30.0-36.0); Mean Corpuscular Hemoglobin 29.2 pg (28.0-34.0); Mean Corpuscular Volume 85.3 fl (81-99); Mean Platelet Volume 10.5 fL (7.4-10.4); Monocytes # 0.4 10^3/uL (0.2-0.9); Monocytes % 8.5 %; Neutrophils # 2.26 10^3/uL (1.8-7.7); Neutrophils % 43.5 %; Nucleated Red Blood Cells % 0 %; Platelet Count 264 10^3/cmm (130-400); Red Blood Count 4.55 10^6/uL (4.1-5.3); White Blood Count 5.2 10^3/uL (4.0-10.0)
[2022-03-21 07:21] LABS: Alanine Aminotransferase 12 U/L (0-33); Albumin Level 4.4 g/dL (3.5-5.2); Alkaline Phosphatase 62 U/L (35-105); Aspartate Amino Transferase 22 U/L (0-32); Blood Urea Nitrogen 16 mg/dL (6-20); Calcium 9.4 mg/dL (8.5-10.5); Carbon Dioxide 24 mmol/L (22-29); Chloride 104 mmol/L (98-107); Globulin 2.5 g/dL (1.3-4.6); Glomerular Filtration Rate 97.6 mL/min (90-130); Glucose 91 mg/dL (65-115); Osmolality Calculated 289 mOsm/kg (285-295); Sodium 139 mmol/L (136-145); Total Bilirubin 0.4 mg/dL (0.15-1.2); Total Protein 6.9 g/dL (6.6-8.7)
[2022-03-21 07:29] LABS: Add Urine Microscopic? NO; Charge for UA Resulting for Rev
[2022-03-21] MEDS: midazolam 1 mg/mL INJ 2 mL 2 MG IVP (08:30)
[2022-03-21] MEDS: ceFOXitin 2,000 MG in sodium chloride 0.9% (plus) 50 ML 100 MG IV (08:32)
[2022-03-21 08:56] LABS: OR HCG Qualitative Urine Negative (Negative)
[2022-03-21 08:58] LABS: Bilirubin Urine Neg (Negative); Blood Urine Neg (Negative); Glucose Urine UA Norm (Normal); Ketones Urine Negative (Negative); Leukocyte Esterase Urine Negative (Negative); Nitrate Urine Negative (Negative); Protein Urine Neg (Negative); Specific Gravity, Urine 1.015 (1.005-1.030); Urine Appearance Clear (CLEAR); Urine Color Yellow (Yellow); Urobilinogen Urine Norm (Negative); pH Urine 6 (5-7)
[2022-03-21] MEDS: estrogens Conjugated Cream 30 gm 1 APPLIC VAGINAL (10:16)
--- NOTE | 2022-03-21 10:49 | P.OP_ITS ---
Operative Report Date of procedure: March 21, 2022 Pre-op diagnosis: Preop Diagnosis Cystocele, uterine prolapse, abnormal uterine bleeding, dysmenorrhea, dyspa Post-op diagnosis: Same as above Procedure done: Total vaginal hysterectomy with bilateral salpingectomy. Anterior colporrhaphy augmented with allograft. Single incision mid urethral Perineorrhaphy Cystoscopy Implants: Coloplast Altis single incision mid urethral sling. Coloplast allograft Specimens removed/disposition: Uterus with left and right fallopian tube Surgeon: Sly Irwin MD Estimated blood loss (mL): 400 IV fluids (mL): 1,200 Urine output (mL): 300 Complications: Bleeding Findings: Uterine prolapse stage II. Cystocele stage II. Brief History: Mrs. Donovan 31-year-old female with cystocele and stress urinary incontinence and uterine prolapse stage II Procedure: After informed consent, the patient was taken to the operating room where general anesthesia was administered. She was placed in the dorsal lithotomy position and prepped and draped in sterile fashion. Pre-Procedure Time-Out verifying the correct patient identity, correct procedure verified with consent, correct site and side, correct patient position, availability of correct implants and any special equipment or requirements was performed and acknowledge by the OR team. A weighted speculum was placed in the posterior vaginal wall and the right-angle retractor used to visualize the cervix. The cervix was grasped across the anterior lip with a single-toothed tenaculum and circumferentially infiltrated with 2%lydocaine with epinephrine at this time. The cervix was circumferentially excised with the scalpel. The vaginal mucosa was dissected superiorly with sharp dissection. The anterior peritoneal reflection was identified, and it was entered with Metzenbaum scissors. A posterior colpotomy was made through the cul-de-sac space. The posterior peritoneum was identified in similar fashion and Metzenbaum scissors were used to enter the cul-de-sac. At this time, a weighted speculum was placed, advanced posteriorly into the cul-de-sac. At this time, the left and right uterosacral ligaments were isolated and ligated with 0 Vicryl. The Enseal device was then used in a serial fashion up through the cardinal ligaments bilaterally. Finally, the uterine arteries were cross-clamped, cut, and ligated with the Enseal device. Enseal device was then used up through the broad ligaments superiorly and finally the uterus was rotated posteriorly. The left and right tubes were then cross- clamped and ligated with LigaSure device. The uterus was excised and submitted for pathologic evaluation. No other abnormalities were noted in the pelvic cavity. Tag sutures had been left on the remnants of the uterosacral ligaments. The right uterosacral ligament tag was placed under traction to identify the remnants of the right uterosacral ligament. A #0 Vicryl suture was placed to th e proximal right uterosacral ligament and sutured to the anterior and posterior pelvic fascia beneath the vaginal cuff on the right side. Identical process was performed on the left, although some difficulty was encountered in identifying and actually suturing through the attenuated left uterosacral ligament. Both these sutures were tied to elevate the vaginal cuff. The remaining vaginal cuff mucosa and anterior and posterior fascia were then closed. At this time, instruments were removed from the patient's abdominopelvic cavity. Vaginal cuff closure and peritoneum were incorporated into one layer with 0 Vicryl suture in a continuous running interlocking fashion. Hemostasis was noted to be achieved. The anterior vaginal mucosa beneath the midurethra was infiltrated with 2% lidocaine with epinephrine. A vertical midline incision was made beneath the midurethra, nearly 1.5 cm length. Careful submucosal dissection was performed bilaterally up to the interior portion of the inferior pubic ramus. The insertion of adductor longus tendon on the patient?s pubic ramus was identified as reference land nino. Palpated the notch along the internal edge of ischiopubic ramus where the adductor longus tendon and the inferior pubic ramus meet. The Altis single incision sling (SIS) was selected. Then the needle of the SIS inserted aiming at the location of this notch. One of the integrated self- fixating tips place onto the needle by sliding it over the end of the needle. The needle/sling assembly was inserted toward the location of identified reference notch making sure that the flat of the handle is perpendicular to the desired path. The needle was tracked along the posterior surface of the ischiopubic ramus until the midline nino on the mesh is approximately at the midline position under the urethra. The needle was removed and the same was repeated on the contralateral side until the appropriate sling tension under the urethra was achieved ensuring that the mesh lays flat. The needle was removed and vaginal incision was closed in a running interlocking fashion with 2-0 Vicryl. Then an anterior colporrhaphy was performed. The vaginal mucosa was then injected in the midline with normal saline. The vaginal mucosa was then injected in the midline with normal saline. The vaginal mucosa was scored in the midline with the Bovie approximately 1 cm medial to the urethral meatus to 1 cm distal to the vaginal cuff. This vaginal mucosa was then undermined and then incised in the midline with the Metzenbaum scissors. The lateral aspects of the vaginal mucosa were then grasped with the Allis clamps and the vaginal mucosa was then dissected off the underlying fascia with the Metzenbaum scissors. Again, there was noted to be quite a bit of oozing at the incision, which was controlled with cautery. After adequate dissection was performed, bilaterally. Coloplast allograft was modified at time of application to fit spacea, 3x3 cm piece . The allograft placed in front of cystocele ready to be implanted facing the vagina mucosa. Suture is placed at distal end of graft and placed towards vaginal cuff. Final suture is placed on proximal portion of the graft to complete the placement overlying the bladder. Then Interrupted vertical mattress sutures of 0 Vicryl were used to elevate the cystocele superiorly. The excessive vaginal mucosa was then trimmed with the Metzenbaum scissors and the vaginal mucosa was then reapproximated in the running interlocking fashion with 2-0 Vicryl. Then the Rubalcava catheter was removed and cystoscope was inserted. The bladder was fill ed with sterile water. Complete evaluation of the bladder mucosa was performed noting no lacerations, dimpling, tears, bleeding of the mucosa or muscular layers. Both ureteral orifices were identified. Prompt excretion of urine from both ureteral orifices was noted. Cystoscope was withdrawn. Rubalcava catheter was then placed yielding clear manuel urine. A vaginal packing with Premarin cream was placed to provide support during the healing process. The patient tolerated the procedure well and was taken to the recovery room in a stable condition. Sponge and needle counts were correct x3.
--- NOTE | 2022-03-21 11:19 | SUR.PHASEI ---
1103 PT TO PACU 5 PT AWAKES TO VOICE, GOOD RESP NOTED , PT PLACED ON 8LMASK, MONITOR ST NO ECTOPY NOTED ABDOMEN SOFT MILLY PAD AND VAGINAL PACKING WARM BLANKETS TO PT X 3 OATES TO DD STATLOCK TO RT THIGH, URINE CLEAR LT BLUE TO TUBING AND BAG. BILAT SCDS ON , PT ID BRACELETS TO RT WRIST, PT ID'D WITH 2 IDENTIFIERS, VSS. 1118 PT VERBALLY DENIES PAIN AND NAUSEA, VSS ABDOMEN REMAINS SOFT NO DRAINAGE TO MILLY PAD NOTED, OATES REMAINS PATENT, PT ROLLED TO ASSESS PAD, C/O OF PAIN OF 2 BUT QUICKLY BACK TO SLEEP
--- NOTE | 2022-03-21 11:31 | SUR.PHASEI ---
DR ROSE AT BEDSIDE, PT TALKATIVE AND DR MACIAS TO TALK TO PT ARIK IN CONFERENCE ROOM. PT STATES (I JUST WANT TO SLEEP) PT ENCOURAGED TO REST, ABDOMEN REMAINS SOFT NO DRAINAGE TO MILLY PAD AT THIS TIME.
--- NOTE | 2022-03-21 12:07 | SUR.PHASEI ---
PT TO ROOM 256 BED 2 PER CART, PT AWAKE ALERT MOVES SELF TO BED ABDOMEN SOFT , NO BLEEDING TO MILLY PAD, PT ARIK AT BEDSIDE, HANDOFF AT BEDSIDE TO DENAE LEIVA. IV PIID TO LT WRIST INTACT, OATES PATENT OF LT BLUE GREEN CLEAR URINE TO TUBING AND BAG.APPROX 50 ML TO BAG NOT EMPTIED.
[2022-03-21] MEDS: ketorolac 30 mg/mL INJ IVP ×2 (13:46→19:43)
[2022-03-21] MEDS: dextrose 5%-lactated ringers 1,000 ML 125 ML IV (13:53)
[2022-03-21] MEDS: albuterol 8 gm MDI 2 PUFF INHALATION (14:55)
[2022-03-21] MEDS: HYDROcodone-acetaminophen 5-325 mg Tablet PO ×2 (15:19→23:46)
--- NOTE | 2022-03-21 15:45 | ANE.PACU2 ---
Inpatient post-anesthesia follow up: Airway intact: Yes Vital signs: Temperature 97.8 F Pulse Rate 110 Respiratory Rate 18 Blood Pressure 117/67 Pulse Oximetry 96 Oxygen Delivery Me thod Room Air Oxygen Flow Rate 8 Fraction of Inspir ed Oxygen Hydration adequate: Yes Nausea and vomiting: No Pain level: 2 Mental status: Baseline
--- NOTE | 2022-03-21 23:56 | PC.NURSE ---
Minimal spotting noted to patient's pad throughout the evening.
[2022-03-22] MEDS: ketorolac 30 mg/mL INJ IVP (03:37)
[2022-03-22] MEDS: dextrose 5%-lactated ringers 1,000 ML 125 ML IV (03:38)
[2022-03-22 04:00] VITALS: BP 95/57; PULSE 60; RESP 14; TEMP 36.6; O2SAT 98
[2022-03-22] MEDS: fluoxetine 20 mg Capsule 40 MG PO (06:24)
--- NOTE | 2022-03-22 06:52 | PC.NURSE ---
Urinary Catheter and vaginal packing removed at 0625. Patient tolerated well.Scant, spotting blood noted to patient's pad at this time. Clean pad applied.
[2022-03-22 08:00] VITALS: BP 104/68; PULSE 66; RESP 16; TEMP 36.6; O2SAT 99
--- NOTE | 2022-03-22 10:22 | PC.CHAP ---
Pastoral Care Encounter/Spiritual Assessment Type of Contact [] Declined overnight babysitter visit [] Patient/Family/Request visit [] Outpatient visit [] Follow-up visit [] Physician referral [] Code/Alert [x] Routine visit [] Staff referral [] Actively dying [] Patient sleeping [] Family support [] [] Out of room [] Palliative care [] [x] Receiving care in room [] Pre-surgical visit [] Trauma [] Long length of stay [] ICU visit [] Other: Relational/Emotional Strength [x] Patient feels connected with others/family/visitors/staff [] Distress [] Loneliness/isolation [] Abandonment Spirituality of Patient [x] Person of Caryn [] Attends Zoroastrianism of their Caryn [x] Believes in Prayer [] Reads Bible or Congregation materials [] There are Spiritual issues to be addressed Interlocking And Signal Mechanic Interventions [x] Prayer [x] Active listening [x] Non-anxious presence [x] Spiritual/emotional support [] Crisis/trauma care [x] Spiritual counseling [] Bereavement support [] Provided bereavement packet [] Provided Bible/devotional materials [] Provided toy/stuffed animal, coloring book to patient or family member [] Provided Communion [] Anointing/[place] [] Salvation [x] Completed spiritual assessment [] Other: Impact on Illness or Injury [] Angry [] Fearful [] Anxious [] Often cries [] Exhaustion [] Unable to work [] Unable to attend mandaen [] Unable to walk/stand [] Unable to read [] Unable to drive [] Unable to eat/drink [] Unable to sleep [] Unable to be with family [] Patient intubated [] Other: Summary had surgery has agood attitude postive recovery going home Time spent with patient 10 mins
[2022-03-22 11:09] LABS: Basophils % 0.3 %; Eosinophils # 0.1 10^3/uL (0.0-0.8); Eosinophils % 0.8 %; Hematocrit 33.4 % (37.0-47.0); Lymphocytes # 1.9 10^3/uL (0.8-4.8); Lymphocytes % 21.8 %; Mean Corpuscular HGB Conc 32.9 g/dL (30.0-36.0); Mean Corpuscular Volume 88.1 fl (81-99); Mean Platelet Volume 10.6 fL (7.4-10.4); Monocytes # 0.7 10^3/uL (0.2-0.9); Monocytes % 8.4 %; Neutrophils # 5.92 10^3/uL (1.8-7.7); Neutrophils % 68.4 %; Nucleated Red Blood Cells % 0 %; Platelet Count 224 10^3/cmm (130-400); Red Blood Count 3.79 10^6/uL (4.1-5.3); Red Cell Distribution Width 12.2 % (12.1-15.1); White Blood Count 8.7 10^3/uL (4.0-10.0)
--- NOTE | 2022-03-22 11:27 | P.DS_ITS ---
Discharge Providers HALF SOLE FITTER Date of Admission: 03/21/22 10:52 Date of Discharge: 03/22/22 Attending Provider at Admission: Sly Irwin MD Attending Provider at Discharge: Sly Irwin MD Primary HALF SOLE FITTER: Sly Irwin MD Primary Care Provider: Wai William DO Hospital Course Hospital Course Mrs. Morse 31-year-old female G2, P2 with a history of abnormal uterine bleeding unresponsive to medical management, dysmenorrhea/pelvic pain, cystocele stage I and mixed urinary incontinence. She was admitted for planned total vaginal hysterectomy with anterior colporrhaphy and single incision mid urethral sling and perineorrhaphy. The procedures were performed without complication. Postop overnight observation was uneventful. She is afebrile and hemodynamically stable postoperative day 1. Ambulating without difficulty. Tolerating diet well. Physical Exam Narrative: GA: Alert and oriented ?3. HEENT: WNL. Heart: Regular rate and rhythm. Lungs: Clear to auscultation bilaterally. Abdomen: Bowel sounds present, nontender. BEDSPREAD SEAMER: No bleeding. Extremities: No edema, no cyanosis, no calves pain. Urinary Catheter Management: Rubalcava Latex: Cath Placed During This Visit: yes Urinary Catheter Date of Insertion: 03/21/22 Urinary Catheter Time of Insertion: 09:04 History History History 2 Term 2 0 Miscarriages/Ectopic 0 Living Children 2 Discharge Data Studies Completed and Pending Pending at discharge Category Date Time Status ES surgery / GI images Routine Exams 03/21/22 06:45 Taken Pathology: Surgical [PTH] Routine Pth 03/21/22 10:46 Received Laboratory Results WBC 8.7 10^3/uL (4.0-10.0) 03/22/22 10:47 RBC 3.79 10^6/uL (4.1-5.3) L 03/22/22 10:47 Hgb 11.0 g/dL (11.5-15.3) L 03/22/22 10:47 Hct 33.4 % (37.0-47.0) L 03/22/22 10:47 MCV 88.1 fl (81-99) 03/22/22 10:47 MCH 29.0 pg (28.0-34.0) 03/22/22 10:47 MCHC 32.9 g/dL (30.0-36.0) 03/22/22 10:47 RDW 12.2 % (12.1-15.1) 03/22/22 10:47 Plt Count 224 10^3/cmm (130-400) 03/22/22 10:47 MPV 10.6 fL (7.4-10.4) H 03/22/22 10:47 Neut % (Auto) 68.4 % 03/22/22 10:47 Lymph % (Auto) 21.8 % 03/22/22 10:47 Amelia % (Auto) 8.4 % 03/22/22 10:47 Eos % (Auto) 0.8 % 03/22/22 10:47 Baso % (Auto) 0.3 % 03/22/22 10:47 Neut # (Auto) 5.92 10^3/uL (1.8-7.7) 03/22/22 10:47 Lymph # (Auto) 1.9 10^3/uL (0.8-4.8) 03/22/22 10:47 Amelia # (Auto) 0.7 10^3/uL (0.2-0.9) 03/22/22 10:47 Eos # (Auto) 0.1 10^3/uL (0.0-0.8) 03/22/22 10:47 Baso # (Auto) 0.0 10^3/uL (0.0-0.1) 03/22/22 10:47 Nucleated RBC % (auto) 0 % 03/22/22 10:47 Nucleated RBCs # 0.0 /100WBC 03/22/22 10:47 Sodium 139 mmol/L (136-145) 03/21/22 06:45 Potassium 4.0 mmol/L (3.5-5.1) 03/21/22 06:45 Chloride 104 mmol/L (98-107) 03/21/22 06:45 Carbon Dioxide 24 mmol/L (22-29) 03/21/22 06:45 Anion Gap 15.0 (5-19) 03/21/22 06:45 BUN 16 mg/dL (6-20) 03/21/22 06:45 Creatinine 0.7 mg/dL (0.5-0.9) 03/21/22 06:45 GFR Calculation 97.6 mL/min (90-130) 03/21/22 06:45 Glucose 91 mg/dL (65-115) 03/21/22 06:45 Calculated Osmolality 289 mOsm/kg (285-295) 03/21/22 06:45 Calcium 9.4 mg/dL (8.5-10.5) 03/21/22 06:45 Total Bilirubin 0.4 mg/dL (0.15-1.2) 03/21/22 06:45 AST 22 U/L (0-32) 03/21/22 06:45 ALT 12 U/L (0-33) 03/21/22 06:45 Alkaline Phosphatase 62 U/L (35-105) 03/21/22 06:45 Total Protein 6.9 g/dL (6.6-8.7) 03/21/22 06:45 Albumin 4.4 g/dL (3.5-5.2) 03/21/22 06:45 Globulin 2.5 g/dL (1.3-4.6) 03/21/22 06:45 Urine Color Yellow (Yellow) 03/21/22 07:18 Urine Appearance Clear (CLEAR) 03/21/22 07:18 Urine pH 6 (5-7) 03/21/22 07:18 Ur Specific Nursery 1.015 (1.005-1.030) 03/21/22 07:18 Urine Protein Neg (Negative) 03/21/22 07:18 Urine Glucose (UA) Norm (Normal) 03/21/22 07:18 Urine Ketones Negative (Negative) 03/21/22 07:18 Urine Blood Neg (Negative) 03/21/22 07:18 Urine Nitrate Negative (Negative) 03/21/22 07:18 Urine Bilirubin Neg (Negative) 03/21/22 07:18 Urine Urobilinogen Norm mg/dL (Negative) 03/21/22 07:18 Ur Leukocyte Esterase Negative (Negative) 03/21/22 07:18 Urine HCG, Qual Negative (Negative) 03/21/22 07:18 Blood Type A Positive 03/21/22 06:45 Rho(D) Type Positive 03/21/22 06:45 Antibody Screen Negative 03/21/22 06:45 Vitals Last Vital Signs Temp 97.8 F 03/22/22 08:00 Pulse 66 03/22/22 08:00 Resp 16 03/22/22 08:00 BP 104/68 03/22/22 08:00 Pulse Ox 99 03/22/22 08:00 O2 Del Method 03/22/22 08:00 O2 Flow Rate 8 03/21/22 11:25 Discharge Plan Discharge Patient Disposition: Home Condition: Stable Prescriptions: New hydrocodone-acetaminophen 5-325 mg tablet 1 tab PO Q4H PRN (Reason: pain) Qty: 30 0RF docusate sodium [Colace] 100 mg capsule 100 mg PO BID Qty: 60 0RF ibuprofen 800 mg tablet 800 mg PO TID PRN (Reason: pain) Qty: 60 0RF acetaminophen 325 mg capsule 325 mg PO Q4H PRN (Reason: fever or pain) Qty: 60 0RF Continued albuterol sulfate 90 mcg/actuation HFA aerosol inhaler 2 puff INHALATION Q4H PRN (Reason: Shortness Of Breath) Qty: 8.5 2RF levocetirizine [Xyzal] 5 mg tablet 5 mg PO DAILY epinephrine 0.3 mg/0.3 mL auto-injector 0.3 mg IM Q4H PRN (Reason: anaphylaxis) Qty: 2 0RF nystatin 100,000 unit/gram cream 1 applic topical DAILY PRN (Reason: headaches) fluoxetine 40 mg capsule 40 mg PO QAM Qty: 90 1RF sumatriptan succinate 25 mg tablet 25 mg PO PRN PRN (Reason: headaches) Rx Instructions: take 1 tab at onset of headache; if no relief may repeat 1 tab after at least 2 hrs; max = 4 tabs/24 hr PO Discharge Orders: Discharge Order (Routine); Ordered 03/22/22 Ordered By: Sly Irwin Referrals: Sly Irwin MD [Physician] - 2 weeks Discharge Diet: Soft Mechanical Discharge Activity: Limit activity as instructed Patient Instructions: Opioid Safety, Vaginal Hysterectomy (GEN), Anterior Vaginal Repair (GEN), Bladder Sling for Women (GEN) Activity Restrictions/Additional Instructions: 1. Please call [facility] [place] [facility] on next working day to make your post-operative appointment in 2 weeks. 2. Please stay home until you come back to the clinic on first post-operative check up. 3. Please follow instructions on your medications CAREFULLY. 4. If you have abdominal incision, do not cover it unless dressing is necessary because of drainage. OK to shower, but avoid bath. Leave steri-strips until they fall off. If they are still on one week after surgery, you may remove them. 5. If you had vaginal surgery or vaginal repair, Dr. Irwin may instruct you to take SITZ bath. 6. Yellow, blood tinged odorous vaginal discharge is usually normal after hysterectomy or vaginal surgeries. 7. No sexual intercourse, tampons, or douches until you are completely released from the post-operative care. 8. Avoid constipation by eating right and maybe using some Metamucil or Milk of Magnesia. 9. All prescription refills are given during the working hours. Please do no wait till it runs out. Call the clinic at [phone] before your medication runs out. The clinic will get in touch with your doctor to prescribe medications if necessary. 10. Please remain within 40 mile radius from our hospital because emergencies do happen now and then during the post-operative period. 11. If you have stairs at home, take one step at a time slowly and minimize the number of trips. It helps to stay in one floor for the next few days. No lifting except what you can lift by one hand until you are released from the post-operative care. 12. Driving is discouraged until you are well healed. It may be 3-4 weeks before you feel strong enough to drive. You should be able to turn and look through the rear window without pain and you should be able to push the brake pedal very hard without pain before you drive. No fast rules, but SAFETY should be your primary concern. DO NOT drive if you are on sedating medications such as narcotics. 13. Call the clinic (during working hours) to make urgent appointment or go to the Emergency room, if any of the following occurs: i. Vaginal bleeding becomes heavy, more than a period. ii. Incision becomes red and sore, or drains pus. iii. Your temperature is over 100.4 or you have chill. iv. IV site becomes red and swollen (a little ``knot?? is usually OK) v. Persistent nausea and vomiting vi. Persistent constipation or diarrhea vii. Rash or allergic reaction to medications. Discharge Attestations HALF SOLE FITTER Time Spent in Discharge Care*: greater than 30 min Coding Level of Care Code Acute Design Lead for g Hali
[2022-03-22 11:36] VITALS: BP 108/66; PULSE 68; RESP 16; O2SAT 96
[2022-03-22] MEDS: HYDROcodone-acetaminophen 5-325 mg Tablet PO (11:47)
--- NOTE | 2022-03-22 13:26 | PC.NURSE ---
Discussed discharge, medications, restrictions and follow up appointments with patient. Verbalized understanding.
[2022-03-22 13:27] VITALS: BP 108/66; PULSE 68; RESP 16; O2SAT 96
== END 2022-03-22 13:20 | disposition home or self-care (01) ==
LOC: MEDSURG 10:52
PROVIDERS: Admitting Provider Obstetrics & Gynecology; PCP Family Medicine; Visit Provider Obstetrics & Gynecology
PROC: (CPT 57240; principal; 2022-03-21 07:00)
PROC: (CPT 57288; 2022-03-21 07:00)
PROC: 0JQC0ZZ Repair Pelvic Region Subcutaneous Tissue and Fascia, Open Approach (ICD-10-PCS; CPT 57240; 2022-03-21 07:00)
PROC: 0TJB8ZZ Inspection of Bladder, Via Natural or Artificial Opening Endoscopic (ICD-10-PCS; CPT 52000; 2022-03-21 07:00)
PROC: 0HQ9XZZ Repair Perineum Skin, External Approach (ICD-10-PCS; CPT 57240; 2022-03-21 07:00)
PROC: (CPT 57240; 2022-03-21 07:00)
DX: N81.4 Uterovaginal prolapse, unspecified (principal); J45.909 Unspecified asthma, uncomplicated; Z88.5 Allergy status to narcotic agent; N39.46 Mixed incontinence
CPT/HCPCS: 57240; 57267; 57288; 58262; 36415; 51798; 80053; 81003; 84703; 85025; 86850; 86900; 88307; 94640; C1713; C1762; G0378; J0694; J1100; J1170; J1200; J1885; J2250; J2405; J2704; J3010; J3490; J3535; J7030; J7040; Q9968

== ENCOUNTER 2022-04-01 10:05 | Emergency (ER) | payer OTHER, SELFPAY ==
[2022-04-01 10:11] VITALS: BP 124/78; PULSE 102; RESP 14; TEMP 36.2; O2SAT 97; BMI 28.2
--- NOTE | 2022-04-01 10:32 | CTR_ITS ---
PROCEDURE INFORMATION: Exam: CT Abdomen And Pelvis With Contrast Exam date and time: 04/01/2022 11:09 AM Age: 31 years old Clinical indication: Abdominal pain; Generalized; Prior surgery; Surgery date: 3-7 days post-operative; Surgery type: Hysterectomy; Additional info: Abd pain, recent hysterectomy TECHNIQUE: Imaging protocol: Computed tomography of the abdomen and pelvis with contrast. Radiation optimization: All CT scans at this facility use at least one of these dose optimization techniques: automated exposure control; mA and/or kV adjustment per patient size (includes targeted exams where dose is matched to clinical indication); or iterative reconstruction. Contrast material: OMNI 350; Contrast volume: 80 ml; Contrast route: INTRAVENOUS (IV); COMPARISON: CT abdomen pelvis w con* [id number] 09/21/2020 11:41 AM RADIATION DOSE METRICS: Total DLP (mGy-cm): 607.03 FINDINGS: Lungs: No acute findings within the included lung bases. Liver: Normal. No mass. Gallbladder and bile ducts: Cholecystectomy. Pancreas: Normal. No ductal dilation. Spleen: Normal. No splenomegaly. Adrenal glands: Normal. No mass. Kidneys and ureters: No hydronephrosis. No mass. Stomach and bowel: No obstruction. No inflammatory changes. Appendix: Evidence of appendectomy. Intraperitoneal space: See Reproductive finding. No free air. Vasculature: Subtle central filling defects noted within the bilateral gonadal veins, potentially representing nonocclusive thrombophlebitis although this may be artifactual related to scan timing. The IVC is patent. Normal caliber aorta. Lymph nodes: Unremarkable. No enlarged lymph nodes. Urinary bladder: Bladder partially filled. No stones. Reproductive: Hysterectomy. 4.0 x 5.7 x 5.7 cm right adnexal cyst with slightly thickened enhancing rim and septum (versus 2 adjacent cysts). Minimal adjacent hypodense free fluid. Normal appearance of the left ovary/adnexa. Bones/joints: No acute or aggressive osseous lesion. Soft tissues: Small fat containing umbilical hernia incidentally noted. CT/CT abdomen pelvis w con* [id number] IMPRESSION: 1. 4.0 x 5.7 x 5.7 cm complex right ovarian/adnexal cyst (versus 2 adjacent cysts). Consider follow-up pelvic ultrasound in 6 weeks to ensure resolution. Trace free fluid, likely physiologic. No definitive evidence of abscess. 2. Central filling defects noted within the bilateral gonadal veins, potentially representing nonocclusive thrombophlebitis although this may be artifactual related to scan timing. Correlate clinically, and consider follow-up CT with delayed imaging versus MRI if additional imaging is clinically warranted.
--- NOTE | 2022-04-01 10:40 | ED_ITS ---
HPI - General Adult General: Chief complaint: General Medical Stated complaint: pelvic pain Time Seen by Provider: 04/01/22 10:26 History of Present Illness: 31-year-old female presents with pelvic pain. Patient reports the pain started about 3 days ago. Patient had a hysterectomy o n 03/21/2022 with a bladder sling. Patient reports she was doing well till just couple days ago when she started having significant more pain. Patient reports she has had some chills, couple episodes of vomiting. Patient reports that symptoms are just been continually getting worse so she presented today. She initially was going to try to wait till tomorrow to see her CHEMICAL MILLING PROCESSOR but the pain is gotten not much worse. She denies any urinary symptoms. She reports that she feels like the pains in a deep in the pelvis. Associated symptoms: Reports malaise, nausea and vomiting; Deny chest pain, dyspnea, rash or palpitations Review of Systems Const: Reports: chills and malaise; Denies: fever(s) Eyes: Denies: change in vision or blurry vision ENMT: Denies: throat pain or ear or mastoid pain Card: Denies: chest pain or palpitations Resp: Denies: dyspnea or productive cough GI: Reports: abdominal pain, nausea and vomiting; Denies: diarrhea : Reports: pelvic pain; Denies: flank pain or difficulty voiding Musc: Denies: neck pain or back pain Skin/Breast: Denies: rash or pruritus Psych: Denies: anxiety or depression [facility] ED PFSH: Medical History (Updated 04/01/22 @ 12:58 by Martínez Christina DO) Unspecified asthma, uncomplicated Surgical History History of nasal sinusotomy (~2008) Balloon sinuplasty, Dr. Wang, [place], [place] S/P adenoidectomy (~2008) Dr. Wang, [place], [place] S/P appendectomy (07/05/11) Diagnotic Laparoscopy with appendectomy. Diagnosis: Right lower quadrant pain, probably mesenteric adenitis. Performed by Dr. Bravo at [facility] in [place], [place]. 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 Dr. Major @ [place], [place]. S/P tonsillectomy (~2009) Dr. Wang, [place], [place] teeth extracted (~2015) Dr. Patterson [place], [place] Family History Grandmother Clotting disorder Deep vein thrombosis - Maternal grandmother and Maternal great uncle Stroke Multiple extended family history Dementia Vascular, with endstage COPD Lung disease Smoking induced Mother Psychiatric illness Bipolar Denies family history of Diabetes CAD (coronary artery disease) Hyperlipidemia Chronic kidney disease (CKD) Suicide Anesthesia complication Bleeding disorder Family history of premature coronary artery disease Cancer Hypertension Social History Smoking and tobacco status: never smoked Alcohol intake: never Female Reproductive History: Date of last menstrual period: 03/15/22 Physical Exam Const: COMMON NORMALS: average body habitus, patient oriented x3 and no limit ations HENMT: COMMON NORMALS: normocephalic, atraumatic and hearing grossly normal bilaterally HEAD & SCALP: normocephalic and atraumatic Eye: COMMON NORMALS: Equal, round and reactive pupils present and EOMs intact bilaterally PUPIL: Yes Equal, round and reactive pupils present Neck/C-Spine: COMMON NORMALS: full ROM and no JVD GENERAL: No tender Resp: COMMON NORMALS: normal respiratory effort, No retractions and No use of accessory muscles Cardio: COMMON NORMALS: no JVD and regular rhythm RATE: tachycardic RHYTHM: regular rhythm GI: INSPECTION: Yes normal to inspection PALPATION: Yes Tenderness to palpation present (GI) (Suprapubic,) Extremity: COMMON NORMALS: normal to inspection, full ROM and capillary refill normal Neuro: COMMON NORMALS: patient oriented x3, CN's II-XII intact bilaterally and moves all extremities Psych: COMMON NORMALS: mental status grossly normal, Normal thought process present and cooperative THOUGHT PROCESS: Normal thought process present Skin: COMMON NORMALS: no rashes or lesions noted and no wounds GENERAL SKIN EXAM: no rashes or lesions noted Course Vital Signs: Vital signs: Vital Signs Temperature 97.2 F L 04/01/22 10:11 Pulse Rate 83 04/01/22 11:00 Respiratory Rate 18 04/01/22 11:00 Blood Pressure 106/62 04/01/22 11:00 Pulse Oximetry 96 04/01/22 11:00 Oxygen Delivery Me thod 04/01/22 11:00 MDM - General Adult Medical Decision Making Patient CT shows complex right ovarian cyst. Patient also shows possible central filling defects in the bilateral gonadal veins. Patient clinically fits ovarian cyst. She did have a recent hysterectomy. Discussed findings with patient. Patient will call her CHEMICAL MILLING PROCESSOR in the morning to make her aware of findings and determine if they would like further follow-up and ultrasounds. This time patient stable. Patient currently has pain medicines from her recent surgery at home. Patient with a slight elevation in her white count and CRP but no signs of infection. Discussed with Dr. Bernabe on-call OB who agrees with plan patient was stable and discharged home Lab Data : 04/01/22 10:44 04/01/22 10:44 Radiology Impressions Abdomen/Pelvis CT 04/01/22 10:32 IMPRESSION: 1. 4.0 x 5.7 x 5.7 cm complex right ovarian/adnexal cyst (versus 2 adjacent cysts). Consider follow-up pelvic ultrasound in 6 weeks to ensure resolution. Trace free fluid, likely physiologic. No definitive evidence of abscess. 2. Central filling defects noted within the bilateral gonadal veins, potentially representing nonocclusive thrombophlebitis although this may be artifactual related to scan timing. Correlate clinically, and consider follow-up CT with delayed imaging versus MRI if additional imaging is clinically warranted. Laboratory Results WBC 12.8 10^3/uL (4.0-10.0) H 04/01/22 10:44 RBC 4.41 10^6/uL (4.1-5.3) 04/01/22 10:44 Hgb 12.9 g/dL (11.5-15.3) 04/01/22 10:44 Hct 37.9 % (37.0-47.0) 04/01/22 10:44 MCV 85.9 fl (81-99) 04/01/22 10:44 MCH 29.3 pg (28.0-34.0) 04/01/22 10:44 MCHC 34.0 g/dL (30.0-36.0) 04/01/22 10:44 RDW 12.2 % (12.1-15.1) 04/01/22 10:44 Plt Count 322 10^3/cmm (130-400) 04/01/22 10:44 MPV 10.0 fL (7.4-10.4) 04/01/22 10:44 Neut % (Auto) 70.0 % 04/01/22 10:44 Lymph % (Auto) 16.4 % 04/01/22 10:44 [place] % (Auto) 7.5 % 04/01/22 10:44 Eos % (Auto) 4.9 % 04/01/22 10:44 Baso % (Auto) 0.4 % 04/01/22 10:44 Neut # (Auto) 8.98 10^3/uL (1.8-7.7) H 04/01/22 10:44 Lymph # (Auto) 2.1 10^3/uL (0.8-4.8) 04/01/22 10:44 [place] # (Auto) 1.0 10^3/uL (0.2-0.9) H 04/01/22 10:44 Eos # (Auto) 0.6 10^3/uL (0.0-0.8) 04/01/22 10:44 Baso # (Auto) 0.1 10^3/uL (0.0-0.1) 04/01/22 10:44 Nucleated RBC % (auto) 0 % 04/01/22 10:44 Nucleated RBCs # 0.0 /100WBC 04/01/22 10:44 Sodium 136 mmol/L (136-145) 04/01/22 10:44 Potassium 4.2 mmol/L (3.5-5.1) 04/01/22 10:44 Chloride 102 mmol/L (98-107) 04/01/22 10:44 Carbon Dioxide 23 mmol/L (22-29) 04/01/22 10:44 Anion Gap 15.2 (5-19) 04/01/22 10:44 BUN 12 mg/dL (6-20) 04/01/22 10:44 Creatinine 0.7 mg/dL (0.5-0.9) 04/01/22 10:44 GFR Calculation 97.6 mL/min (90-130) 04/01/22 10:44 Glucose 101 mg/dL (65-115) 04/01/22 10:44 Calculated Osmolality 282 mOsm/kg (285-295) L 04/01/22 10:44 Lactate 1.0 mmol/L (0.5-2.2) 04/01/22 10:44 Calcium 9.6 mg/dL (8.5-10.5) 04/01/22 10:44 Total Bilirubin 0.5 mg/dL (0.15-1.2) 04/01/22 10:44 AST 17 U/L (0-32) 04/01/22 10:44 ALT 19 U/L (0-33) 04/01/22 10:44 Alkaline Phosphatase 86 U/L (35-105) 04/01/22 10:44 C-Reactive Protein 47.4 mg/L (0.0-4.9) H 04/01/22 10:44 Total Protein 7.7 g/dL (6.6-8.7) 04/01/22 10:44 Albumin 4.5 g/dL (3.5-5.2) 04/01/22 10:44 Globulin 3.2 g/dL (1.3-4.6) 04/01/22 10:44 Urine Color Yellow (Yellow) 04/01/22 09:47 Urine Appearance Sl hazy (CLEAR) 04/01/22 09:47 Urine pH 6.5 (5-7) 04/01/22 09:47 Ur Specific [place] 1.005 (1.005-1.030) 04/01/22 09:47 Urine Protein Neg (Negative) 04/01/22 09:47 Urine Glucose (UA) Norm (Normal) 04/01/22 09:47 Urine Ketones Negative (Negative) 04/01/22 09:47 Urine Blood 2+ (Negative) H 04/01/22 09:47 Urine Nitrate Negative (Negative) 04/01/22 09:47 Urine Bilirubin Neg (Negative) 04/01/22 09:47 Urine Urobilinogen Norm mg/dL (Negative) 04/01/22 09:47 Ur Leukocyte Esterase 1+ (Negative) H 04/01/22 09:47 Urine RBC 5-10 /hpf (0-2) H 04/01/22 09:47 Urine WBC 5-10 /hpf (0-5) H 04/01/22 09:47 Ur Squamous Epith Cells 0-4 /hpf (0-5) H 04/01/22 09:47 Amorphous Sediment Not Reportable 04/01/22 09:47 Urine Bacteria Trace /hpf (NONE) 04/01/22 09:47 Discharge Plan Discharge Patient Disposition: Home Clinical Impression: Ovarian cyst, Acute postoperative pain of abdomen Condition: Stable Prescriptions: No Action albuterol sulfate 90 mcg/actuation HFA aerosol inhaler 2 puff INHALATION Q4H PRN (Reason: Shortness Of Breath) Qty: 8.5 2RF levocetirizine [Xyzal] 5 mg tablet 5 mg PO DAILY fluticasone propionate [Children's Flonase Allergy Rlf] 50 mcg/actuation spray,suspension 2 spray intranasal DAILY Qty: 16 0RF Rx Instructions: administer into each nostril epinephrine 0.3 mg/0.3 mL auto-injector 0.3 mg IM Q4H PRN (Reason: anaphylaxis) Qty: 2 0RF nystatin 100,000 unit/gram cream 1 applic topical DAILY PRN (Reason: headaches) fluoxetine 40 mg capsule 40 mg PO QAM Qty: 90 1RF sumatriptan succinate 25 mg tablet 25 mg PO PRN PRN (Reason: headaches) Rx Instructions: take 1 tab at onset of headache; if no relief may repeat 1 tab after at least 2 hrs; max = 4 tabs/24 hr PO acetaminophen 325 mg capsule 325 mg PO Q4H PRN (Reason: fever or pain) Qty: 60 0RF ibuprofen 800 mg tablet 800 mg PO TID PRN (Reason: pain) Qty: 60 0RF Colace 100 mg capsule 100 mg PO BID Qty: 60 0RF hydrocodone-acetaminophen 5-325 mg tablet 1 tab PO Q4H PRN (Reason: pain) Qty: 30 0RF Discharge Orders: Discharge ED (Routine); Ordered 04/01/22 Ordered By: Martínez Christina Referrals: Wai William DO [Primary Care Provider] - Patient Instructions: Abdominal Pain (ED), Opioid Safety, Pain Management Activity Restrictions/Additional Instructions: Please follow-up with Dr. Irwin in the morning Coding Level of Care Code ED Care Process Manager for Chg Fwd Exam Comprehensive
[2022-04-01 10:43] VITALS: RESP 18
[2022-04-01] MEDS: lactated ringers 1,000 ML 999 ML IV (10:43)
[2022-04-01] MEDS: fentaNYL 50 mcg/mL INJ 2mL IVP (10:43)
[2022-04-01] MEDS: ondansetron 2 mg/ML SDV 2 mL 4 MG IVP (10:43)
[2022-04-01 11:00] VITALS: BP 106/62; PULSE 83; RESP 18; O2SAT 96
[2022-04-01 11:10] LABS: Add Urine Microscopic? YES; Bilirubin Urine Neg (Negative); Blood Urine 2+ (Negative); Glucose Urine UA Norm (Normal); Ketones Urine Negative (Negative); Leukocyte Esterase Urine 1+ (Negative); Nitrate Urine Negative (Negative); Protein Urine Neg (Negative); Specific Gravity, Urine 1.005 (1.005-1.030); Urine Appearance SL Hazy (CLEAR); Urine Color Yellow (Yellow); Urobilinogen Urine Norm (Negative); pH Urine 6.5 (5-7)
[2022-04-01 11:11] LABS: Basophils # 0.1 10^3/uL (0.0-0.1); Basophils % 0.4 %; Eosinophils # 0.6 10^3/uL (0.0-0.8); Eosinophils % 4.9 %; Hematocrit 37.9 % (37.0-47.0); Hemoglobin 12.9 g/dL (11.5-15.3); Lymphocytes # 2.1 10^3/uL (0.8-4.8); Lymphocytes % 16.4 %; Mean Corpuscular Hemoglobin 29.3 pg (28.0-34.0); Mean Corpuscular Volume 85.9 fl (81-99); Monocytes % 7.5 %; Neutrophils # 8.98 10^3/uL (1.8-7.7); Nucleated Red Blood Cells % 0 %; Platelet Count 322 10^3/cmm (130-400); Red Blood Count 4.41 10^6/uL (4.1-5.3); Red Cell Distribution Width 12.2 % (12.1-15.1); White Blood Count 12.8 10^3/uL (4.0-10.0)
[2022-04-01 11:12] LABS: Add Urine Culture? Yes; Bacteria Urine TRACE /hpf; Squamous Epithelial Cell Urine 0-4 /hpf (0-5)
[2022-04-01] MEDS: iohexol 350 mg/mL 100 mL Btl IV (11:14)
[2022-04-01 11:16] LABS: Alanine Aminotransferase 19 U/L (0-33); Albumin Level 4.5 g/dL (3.5-5.2); Alkaline Phosphatase 86 U/L (35-105); Anion Gap 15.2 (5-19); Aspartate Amino Transferase 17 U/L (0-32); Blood Urea Nitrogen 12 mg/dL (6-20); C Reactive Protein 47.4 mg/L (0.0-4.9); Calcium 9.6 mg/dL (8.5-10.5); Carbon Dioxide 23 mmol/L (22-29); Chloride 102 mmol/L (98-107); Globulin 3.2 g/dL (1.3-4.6); Glomerular Filtration Rate 97.6 mL/min (90-130); Glucose 101 mg/dL (65-115); Osmolality Calculated 282 mOsm/kg (285-295); Potassium 4.2 mmol/L (3.5-5.1); Sodium 136 mmol/L (136-145); Total Bilirubin 0.5 mg/dL (0.15-1.2); Total Protein 7.7 g/dL (6.6-8.7)
[2022-04-01 12:30] VITALS: BP 96/57; PULSE 72; RESP 18; O2SAT 100
[2022-04-01] MEDS: ketorolac 30 mg/mL INJ 15 MG IVP (12:51)
[2022-04-01 13:00] VITALS: BP 104/66; PULSE 72; RESP 17; O2SAT 95
[2022-04-01 13:35] VITALS: BP 108/63; PULSE 70; RESP 16; O2SAT 95
== END 2022-04-01 13:37 | disposition home or self-care (01) ==
PROVIDERS: Emergency Provider Student in an Organized Health Care Education/Training Program; PCP Family Medicine
DX: N83.291 Other ovarian cyst, right side (principal); G89.18 Other acute postprocedural pain
CPT/HCPCS: 36415; 74177; 80053; 81001; 83605; 85025; 86140; 87040; 87086; 96361; 96374; 96375; 99285; J1885; J2405; J3010; Q9967

== ENCOUNTER → 2022-04-02 14:39 | Outpatient (BNVA) | payer OTHER, SELFPAY | PROVIDERS: PCP Family Medicine; Visit Provider Obstetrics & Gynecology | DX: N83.201 Unspecified ovarian cyst, right side (principal); G89.18 Other acute postprocedural pain; R10.2 Pelvic and perineal pain | CPT/HCPCS: 81000 ==

== ENCOUNTER → 2022-04-05 14:42 | Outpatient (BNVA) | payer OTHER, SELFPAY | PROVIDERS: PCP Family Medicine; Visit Provider Obstetrics & Gynecology | DX: R10.2 Pelvic and perineal pain (principal); N83.201 Unspecified ovarian cyst, right side; Z90.710 Acquired absence of both cervix and uterus | CPT/HCPCS: 76830 ==

== ENCOUNTER 2022-04-06 20:10 | Observation (INO) | payer OTHER, SELFPAY ==
[2022-04-06] VITALS (15 sets, daily range): BP systolic 102–121; BP diastolic 66–85; PULSE 68–97; RESP 14–20; TEMP 36.1–36.8; O2SAT 96–100; BMI 28.2
--- NOTE | 2022-04-06 11:50 | P.ANESASSM_ITS ---
Pre-Anesthetic Assessment Height/Weight: Height 1.68 m Weight 79.379 kg Temp Pulse Resp BP Pulse Ox O2 Del Method 98.2 F 80 20 H 105/81 99 04/06/22 11:04/06/22 11:04/06/22 11:04/06/22 11:04/06/22 11:04/06/22 11:21 Preop Diagnosis: Pelvic pain, right ovarian cyst Operation Date: 04/06/22 17:20 Proposed Procedures p Laparoscopy Diagnostic 60929,R10.2(Not Applicable) - Sly Irwin MD Familial anesthetic complications: None Was Beta Nikita taken within 24 hours: N/A Was Clonidine taken within 24 hours: N/A Last intake: Intake Last Liquid Date 04/05/22 Last Liquid Time 22:00 Last Solid Date 04/05/22 Last Solid Time 22:00 Social No alcohol and No tobacco Exam alert, oriented x 3, clear to auscultation bilaterally and regular rate & rhythm Airway Mallampati: Class II Dentition: full Anesthetic Plan ASA status: 2 Anesthesia: General Risk of > 500 ml blood loss (7ml/kg in children): No Medications/Allergies Home Medications Medication Instructions Recorded Confirmed Last Taken Type albuterol sulfate 90 mcg/actuation 2 puff inhalation Q4H PRN 04/06/21 04/06/22 04/05/22 Rx aerosol inhaler Shortness Of Breath #8.5 grams levocetirizine 5 mg tablet (Xyzal) 5 mg PO DAILY 01/09/22 04/06/22 04/05/22 History epinephrine 0.3 mg/0.3 mL 0.3 mg (0.3 mL) IM Q4H PRN 01/18/22 04/06/22 04/05/22 Rx injection, auto-injector anaphylaxis #2 ea nystatin 100,000 unit/gram topical 1 applic topical DAILY PRN 03/20/22 04/06/22 04/05/22 History cream headaches acetaminophen 325 mg capsule 325 mg PO Q4H PRN fever or pain 03/22/22 04/06/22 04/05/22 Rx #60 caps docusate sodium 100 mg capsule 100 mg PO BID Constipation #60 caps 03/22/22 04/06/22 04/05/22 Rx (Colace) hydrocodone 5 mg-acetaminophen 325 1 tab PO Q4H PRN pain #30 tabs 03/22/22 04/06/22 04/05/22 Rx mg tablet ibuprofen 800 mg tablet 800 mg PO TID PRN pain #60 tabs 03/22/22 04/06/22 04/05/22 Rx fluticasone propionate 50 2 spray intranasal DAILY nasal 03/28/22 04/06/22 04/05/22 Rx mcg/actuation nasal congestion #16 grams spray,suspension (Children's Flonase Allergy Relief) oxycodone-acetaminophen 7.5 mg-325 1 tab PO TID PRN postop pain 10 04/02/22 04/06/22 04/05/22 Rx mg tablet (Percocet) days #20 tabs fluoxetine 40 mg capsule 40 mg PO QAM #90 caps 04/05/22 04/06/22 04/05/22 Rx nitrofurantoin macrocrystal 100 mg 100 mg PO BID 5 days #10 caps 04/05/22 04/06/22 04/05/22 Rx capsule sumatriptan succinate 25 mg tablet See Rx Instructions PO .COMPLEX 04/05/22 04/06/22 04/05/22 Rx #30 tabs Allergies Allergy/AdvReac Type Severity Reaction Status Date / Time morphine Allergy Agitated, Verified 04/06/22 11:18 [facility] Anesthesia Medical History (Updated 04/06/22 @ 10:56 by Sly Irwin MD) Unspecified asthma, uncomplicated Surgical History (Updated 04/02/22 @ 13:47 by Alicia Trevino RN) History of nasal sinusotomy (~2008) Balloon sinuplasty, Dr. Wang, [place], [place] S/P adenoidectomy (~2008) Dr. Wang, [place], [place] S/P appendectomy (07/05/11) Diagnotic Laparoscopy with appendectomy. Diagnosis: Right lower quadrant pain, probably mesenteric adenitis. Performed by Dr. Bravo at [facility] in [place], [place]. 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 Dr. Major @ [place], [place]. S/P tonsillectomy (~2009) Dr. Wang, [place], [place] teeth extracted (~2015) R[facility] Family History Grandmother Clotting disorder Deep vein thrombosis - Maternal grandmother and Maternal great uncle Stroke Multiple extended family history Dementia Vascular, with endstage COPD Lung disease Smoking induced Mother Psychiatric illness Bipolar Denies family history of Diabetes CAD (coronary artery disease) Hyperlipidemia Chronic kidney disease (CKD) Suicide Anesthesia complication Bleeding disorder Family history of premature coronary artery disease Cancer Hypertension Social History Smoking and tobacco status: never smoked Alcohol intake: never Female Reproductive History Date of last menstrual period: 03/15/22 Data Anesthesia : 04/06/22 11:38 Cardiac Studies: Holter Monitor 05/01/21
[2022-04-06 11:51] LABS: Basophils % 0.5 %; Eosinophils # 0.6 10^3/uL (0.0-0.8); Eosinophils % 8.5 %; Hematocrit 37.3 % (37.0-47.0); Hemoglobin 12.6 g/dL (11.5-15.3); Lymphocytes # 1.8 10^3/uL (0.8-4.8); Mean Corpuscular HGB Conc 33.8 g/dL (30.0-36.0); Mean Corpuscular Hemoglobin 28.9 pg (28.0-34.0); Mean Corpuscular Volume 85.6 fl (81-99); Mean Platelet Volume 10.2 fL (7.4-10.4); Monocytes # 0.5 10^3/uL (0.2-0.9); Monocytes % 6.4 %; Neutrophils # 4.46 10^3/uL (1.8-7.7); Neutrophils % 59.9 %; Nucleated Red Blood Cells % 0 %; Platelet Count 324 10^3/cmm (130-400); Red Blood Count 4.36 10^6/uL (4.1-5.3); Red Cell Distribution Width 11.9 % (12.1-15.1); White Blood Count 7.5 10^3/uL (4.0-10.0)
[2022-04-06] MEDS: sodium chloride 0.9% 1,000 ML 30 ML IV (11:55)
[2022-04-06] MEDS: fentaNYL 50 mcg/mL INJ 2mL IVP ×4 (11:56→19:28)
[2022-04-06] MEDS: scopolamine 1.5 Patch 1 PATCH TRANSDERMA (11:56)
[2022-04-06] MEDS: sodium chloride 0.9% 500 ML IV (11:56)
[2022-04-06] MEDS: ondansetron 2 mg/ML SDV 2 mL 4 MG IVP (11:59)
[2022-04-06 12:13] LABS: Add Urine Microscopic? YES; Bilirubin Urine Neg (Negative); Blood Urine 3+ (Negative); Glucose Urine UA Norm (Normal); Ketones Urine Negative (Negative); Leukocyte Esterase Urine 2+ (Negative); Nitrate Urine Negative (Negative); Protein Urine Trace (Negative); Specific Gravity, Urine 1.025 (1.005-1.030); Urine Appearance Cloudy (CLEAR); Urine Color Yellow (Yellow); Urobilinogen Urine Neg (Negative); pH Urine 5 (5-7)
[2022-04-06 12:18] LABS: Alanine Aminotransferase 16 U/L (0-33); Albumin Level 4.5 g/dL (3.5-5.2); Alkaline Phosphatase 81 U/L (35-105); Blood Urea Nitrogen 16 mg/dL (6-20); Calcium 9.8 mg/dL (8.5-10.5); Carbon Dioxide 24 mmol/L (22-29); Chloride 103 mmol/L (98-107); Globulin 2.9 g/dL (1.3-4.6); Glomerular Filtration Rate 97.6 mL/min (90-130); Glucose 85 mg/dL (65-115); Osmolality Calculated 290 mOsm/kg (285-295); Sodium 140 mmol/L (136-145); Total Bilirubin 0.2 mg/dL (0.15-1.2); Total Protein 7.4 g/dL (6.6-8.7)
[2022-04-06 12:19] LABS: Add Urine Culture? No; Amorphous Sediment Urine 1+ /hpf; Bacteria Urine 2+ /hpf; Mucus Urine 2+ /hpf; RBC Urine 0-4 /hpf (0-2); WBC Urine >100 /hpf (0-5)
[2022-04-06 12:19] LABS: Anion Gap 17.4 (5-19); Aspartate Amino Transferase 17 U/L (0-32); Potassium 4.4 mmol/L (3.5-5.1)
[2022-04-06] MEDS: ceFAZolin 2,000 MG in sodium chloride 0.9% (plus) 50 ML 100 MG IV (17:39)
--- NOTE | 2022-04-06 17:41 | W.PM.OPSUD ---
Surgery/Procedure H&P Update DATE OF PROCEDURE: April 06, 2022 DATE H&P PERFORMED: 04/06/22 H&P UPDATE INFORMATION: I have reviewed H&P completed within last 30 days, I have examined patient prior to procedure and Changes to prior documentation as noted here PREOP DIAGNOSIS: Pelvic pain, right ovarian cyst PLANNED PROCEDURE: Operation Date: 04/06/22 17:00 Proposed Procedures p Laparoscopy Diagnostic 24102,R10.2(Not Applicable) - Sly Irwin MD
--- NOTE | 2022-04-06 19:00 | P.OP_ITS ---
Operative Report Date of procedure: April 06, 2022 Pre-op diagnosis: Preop Diagnosis Pelvic pain, right ovarian cyst Post-op diagnosis: Right ovarian hemorrhagic cyst Procedure done: Diagnostic laparoscopy. Right ovarian cystectomy Specimens removed/disposition: Right hemorrhagic cyst capsule Surgeon: Sly Irwin MD Estimated blood loss (mL): 25 IV fluids (mL): 900 Findings: Right ovarian hemorrhagic cyst Procedure: DESCRIPTION OF PROCEDURE: After informed consent, the patient was taken to the operating room where general anesthesia was administered. The patient was examined under anesthesia and found to have a normal uterus with normal adnexa. She was placed in the dorsal lithotomy position and prepped and draped in sterile fashion. Pre- Procedure Time-Out verifying the correct patient identity, correct procedure verified with consent, correct site and side, correct patient position, availability of correct implants and any special equipment or requirements was performed and acknowledge by the OR team. A weighted speculum was placed in the vagina, and the anterior lip of cervix was grasped with the single toothed tenaculum. A uterine manipulator was advanced into the endocervical. Tenaculum was removed after uterine manipulator was secured. The speculum was removed from the vagina. An intraumbilical incision was made with a scalpel. While tenting up on the abdomen, a Verres needle with sleeve was admitted into the intra-abdominal cavity. A saline drop test was performed and noted to be within normal limits. Pneumoperitoneum was attained with 4 liters of carbon dioxide. The Verres needle was removed. A 5 mm trocar and sleeve were admitted into the abdomen and laparoscopic confirmation of location was achieved, A second incision was made 3 cm above the symphysis pubis, and a 5 mm trocar and sleeve were admitted into the abdomen under direct, laparoscopic visualization without complication. A survey revealed normal abdominal anatomy but pelvic survey shows normal uterus, left and right adnexa. A 5 mm blunt probe was advanced through the second trocar sleeve, and light manipulation of ovaries and uterus to assess the posterior aspects was performed. Right hemorrhagic cyst noted, cyst was evacuated and clots and ovarian cyst capsule removed. Pelvis was copiously irrigated and homeostasis was assured. The carbon dioxide was allowed to escape from the abdomen. The instruments were removed, and skin closed with 4-O vicryl and covered with dermabond. Incision site were infiltrated with 2% lidocaine with epi. The instruments were removed from the vagina, and excellent hemostasis was noted. The patient tolerated the procedure well, and sponge, lap and needle count were correct times two. The patient taken to the recovery room in good condition.
[2022-04-06] MEDS: ketorolac 30 mg/mL INJ IVP (21:38)
[2022-04-07] MEDS: ketorolac 30 mg/mL INJ IVP ×2 (03:06→09:59)
[2022-04-07 03:38] VITALS: BP 98/61; PULSE 96; RESP 16; TEMP 36.7
[2022-04-07 05:21] LABS: Hematocrit 34.1 % (37.0-47.0); Hemoglobin 11.8 g/dL (11.5-15.3); Mean Corpuscular HGB Conc 34.6 g/dL (30.0-36.0); Mean Corpuscular Hemoglobin 29.5 pg (28.0-34.0); Mean Corpuscular Volume 85.3 fl (81-99); Mean Platelet Volume 10.1 fL (7.4-10.4); Platelet Count 327 10^3/cmm (130-400); Red Cell Distribution Width 11.9 % (12.1-15.1); White Blood Count 12.8 10^3/uL (4.0-10.0)
[2022-04-07] MEDS: fluoxetine 20 mg Capsule 40 MG PO (05:23)
[2022-04-07] MEDS: alum-mag-hydroxide-sime 30 mL UDC PO (05:25)
[2022-04-07] MEDS: docusate sodium 100 mg Capsule PO (09:59)
[2022-04-07] MEDS: nitrofurantoin SR (BID) 100 mg Capsule PO (09:59)
[2022-04-07 10:12] VITALS: BP 114/73; PULSE 76; RESP 16; TEMP 36.7; O2SAT 98
--- NOTE | 2022-04-07 12:32 | PM.OBGYDC ---
Discharge Providers CRUTCHING CONTRACTOR Date of Admission: 04/06/22 20:10 Date of Discharge: 04/07/22 Attending Provider at Admission: Sly Irwin MD Attending Provider at Discharge: Sly Irwin MD Primary CRUTCHING CONTRACTOR: Sly Irwin MD Primary Care Provider: Wai William DO Reason for Visit Reason for Visit: Abdominal pain, pelvic pain right ovarian cyst Hospital Course Hospital Course Mrs. Morse 31-year-old female is status post vaginal hysterectomy 3 weeks ago came to the clinic complaining of acute right pelvic pain. She had been to the emergency room couple days before CT scan was performed and it showed a right ovarian cyst. Follow-up ultrasound was performed at the clinic plan to continue with acute pelvic pain a diagnostic laparoscopy was recommended and it was performed without complication. Right hemorrhagic cyst was noted and treated. Overnight postop observation was uneventful. She is afebrile hemodynamically stable postoperative day 1. Tolerating diet well. Ambulating without difficulty. Refers no pain. Counseled regarding to continue postop precautions and pelvic rest for 6 weeks (no sex, no tampons, no vaginal douches). Return to the emergency room if any fever, increased bleeding or pain. Physical Exam Narrative: GA: Alert and oriented ?3. HEENT: WNL. Heart: Regular rate and rhythm. Lungs: Clear to auscultation bilaterally. Abdomen: Bowel sounds present, nontender, minimal tenderness, incision clean and dry, no redness, pain or edema. TOWER CRANE OPERATOR: No bleeding. Extremities: No edema, no cyanosis, no calves pain. Urinary Catheter Management: Rubalcava Latex: Cath Placed During This Visit: yes, but has since been removed by the nurse Reason for Continuing Indwelling Catheter: Decision to DC Catheter Urinary Catheter Date of Insertion: 04/06/22 Urinary Catheter Time of Insertion: 18:01 Date Urinary Catheter Removed: 04/07/22 Time Urinary Catheter Discontinued: 01:13 History History History 2 Term 2 0 Miscarriages/Ectopic 0 Living Children 2 Discharge Data Studies Completed and Pending Pending at discharge Category Date Time Status ES surgery / GI images Routine Exams 04/06/22 15:03 Taken Pathology: Surgical [PTH] Routine Pth 04/06/22 18:33 Ordered Laboratory Results WBC 12.8 10^3/uL (4.0-10.0) H 04/07/22 05:14 RBC 4.00 10^6/uL (4.1-5.3) L 04/07/22 05:14 Hgb 11.8 g/dL (11.5-15.3) 04/07/22 05:14 Hct 34.1 % (37.0-47.0) L 04/07/22 05:14 MCV 85.3 fl (81-99) 04/07/22 05:14 MCH 29.5 pg (28.0-34.0) 04/07/22 05:14 MCHC 34.6 g/dL (30.0-36.0) 04/07/22 05:14 RDW 11.9 % (12.1-15.1) L 04/07/22 05:14 Plt Count 327 10^3/cmm (130-400) 04/07/22 05:14 MPV 10.1 fL (7.4-10.4) 04/07/22 05:14 Neut % (Auto) 59.9 % 04/06/22 11:38 Lymph % (Auto) 24.0 % 04/06/22 11:38 [place] % (Auto) 6.4 % 04/06/22 11:38 Eos % (Auto) 8.5 % 04/06/22 11:38 Baso % (Auto) 0.5 % 04/06/22 11:38 Neut # (Auto) 4.46 10^3/uL (1.8-7.7) 04/06/22 11:38 Lymph # (Auto) 1.8 10^3/uL (0.8-4.8) 04/06/22 11:38 [place] # (Auto) 0.5 10^3/uL (0.2-0.9) 04/06/22 11:38 Eos # (Auto) 0.6 10^3/uL (0.0-0.8) 04/06/22 11:38 Baso # (Auto) 0.0 10^3/uL (0.0-0.1) 04/06/22 11:38 Nucleated RBC % (auto) 0 % 04/06/22 11:38 Nucleated RBCs # 0.0 /100WBC 04/06/22 11:38 Sodium 140 mmol/L (136-145) 04/06/22 11:38 Potassium 4.4 mmol/L (3.5-5.1) 04/06/22 11:38 Chloride 103 mmol/L (98-107) 04/06/22 11:38 Carbon Dioxide 24 mmol/L (22-29) 04/06/22 11:38 Anion Gap 17.4 (5-19) 04/06/22 11:38 BUN 16 mg/dL (6-20) 04/06/22 11:38 Creatinine 0.7 mg/dL (0.5-0.9) 04/06/22 11:38 GFR Calculation 97.6 mL/min (90-130) 04/06/22 11:38 Glucose 85 mg/dL (65-115) 04/06/22 11:38 Calculated Osmolality 290 mOsm/kg (285-295) 04/06/22 11:38 Calcium 9.8 mg/dL (8.5-10.5) 04/06/22 11:38 Total Bilirubin 0.2 mg/dL (0.15-1.2) 04/06/22 11:38 AST 17 U/L (0-32) 04/06/22 11:38 ALT 16 U/L (0-33) 04/06/22 11:38 Alkaline Phosphatase 81 U/L (35-105) 04/06/22 11:38 Total Protein 7.4 g/dL (6.6-8.7) 04/06/22 11:38 Albumin 4.5 g/dL (3.5-5.2) 04/06/22 11:38 Globulin 2.9 g/dL (1.3-4.6) 04/06/22 11:38 Urine Color Yellow (Yellow) 04/06/22 11:00 Urine Appearance Cloudy (CLEAR) 04/06/22 11:00 Urine pH 5 (5-7) 04/06/22 11:00 Ur Specific [place] 1.025 (1.005-1.030) 04/06/22 11:00 Urine Protein Trace (Negative) H 04/06/22 11:00 Urine Glucose (UA) Norm (Normal) 04/06/22 11:00 Urine Ketones Negative (Negative) 04/06/22 11:00 Urine Blood 3+ (Negative) H 04/06/22 11:00 Urine Nitrate Negative (Negative) 04/06/22 11:00 Urine Bilirubin Neg (Negative) 04/06/22 11:00 Urine Urobilinogen Neg mg/dL (Negative) 04/06/22 11:00 Ur Leukocyte Esterase 2+ (Negative) H 04/06/22 11:00 Urine RBC 0-4 /hpf (0-2) H 04/06/22 11:00 Urine WBC >100 /hpf (0-5) H 04/06/22 11:00 Ur Squamous Epith Cells 10-15 /hpf (0-5) H 04/06/22 11:00 Amorphous Sediment 1+ /hpf 04/06/22 11:00 Urine Bacteria 2+ /hpf (NONE) H 04/06/22 11:00 Urine Mucus 2+ /hpf 04/06/22 11:00 Blood Type A Positive 04/06/22 11:38 Rho(D) Type Positive 04/06/22 11:38 Antibody Screen Negative 04/06/22 11:38 Vitals Last Vital Signs Temp 98.0 F 04/07/22 10:12 Pulse 76 04/07/22 10:12 Resp 16 04/07/22 10:12 BP 114/73 04/07/22 10:12 Pulse Ox 98 04/07/22 10:12 O2 Del Method 04/07/22 10:12 Discharge Plan Discharge Patient Disposition: Home Condition: Stable Prescriptions: Continued albuterol sulfate 90 mcg/actuation HFA aerosol inhaler 2 puff INHALATION Q4H PRN (Reason: Shortness Of Breath) Qty: 8.5 2RF levocetirizine [Xyzal] 5 mg tablet 5 mg PO DAILY fluticasone propionate [Children's Flonase Allergy Rlf] 50 mcg/actuation spray,suspension 2 spray intranasal DAILY Qty: 16 0RF Rx Instructions: administer into each nostril epinephrine 0.3 mg/0.3 mL auto-injector 0.3 mg IM Q4H PRN (Reason: anaphylaxis) Qty: 2 0RF nystatin 100,000 unit/gram cream 1 applic topical DAILY PRN (Reason: headaches) oxycodone-acetaminophen [Percocet] 7.5-325 mg tablet 1 tab PO TID PRN (Reason: postop pain) 10 Days Qty: 20 0RF nitrofurantoin macrocrystal 100 mg capsule 100 mg PO BID 5 Days Qty: 10 0RF Rx Instructions: must administer with a meal/food fluoxetine 40 mg capsule 40 mg PO QAM Qty: 90 1RF sumatriptan succinate 25 mg tablet See Rx Instructions PO .COMPLEX Qty: 30 2RF Rx Instructions: take 1 tab at onset of headache; if no relief may repeat 1 tab after at least 2 hrs; max = 4 tabs/24 hr PO acetaminophen 325 mg capsule 325 mg PO Q4H PRN (Reason: fever or pain) Qty: 60 0RF ibuprofen 800 mg tablet 800 mg PO TID PRN (Reason: pain) Qty: 60 0RF docusate sodium [Colace] 100 mg capsule 100 mg PO BID Qty: 60 0RF hydrocodone-acetaminophen 5-325 mg tablet 1 tab PO Q4H PRN (Reason: pain) Qty: 30 0RF Discharge Orders: Discharge Order (Routine); Ordered 04/07/22 Ordered By: Sly Irwin Referrals: Sly Irwin MD [Physician] - 04/16/22 9:45 am (2 week post-op: 04/16/22 @9:45 4 week post-op: 05/04/22 @9:00) Discharge Diet: Advance as tolerated Discharge Activity: Limit activity as instructed Patient Instructions: Ovarian Cyst Removal (DC), OB Discharge Report, OB Laproscopic Surgery - [facility], OB Food/Drug Interaction Guide, Opioid Safety Activity Restrictions/Additional Instructions: 1. Please call [facility] on next working day to make your post-operative appointment in 2 weeks. 2. Please stay home until you come back to the clinic on first post-operative check up. 3. Please follow instructions on your medications CAREFULLY. 4. If you have abdominal incision, do not cover it unless dressing is necessary because of drainage. OK to shower, but avoid bath. Leave steri-strips until they fall off. If they are still on one week after surgery, you may remove them. 5. If you had vaginal surgery or vaginal repair, Dr. Irwin may instruct you to take SITZ bath. 6. Yellow, blood tinged odorous vaginal discharge is usually normal after hysterectomy or vaginal surgeries. 7. No sexual intercourse, tampons, or douches until you are completely released from the post-operative care. 8. Avoid constipation by eating right and maybe using some Metamucil or Milk of Magnesia. 9. All prescription refills are given during the working hours. Please do no wait till it runs out. Call the clinic at [phone] before your medication runs out. The clinic will get in touch with your doctor to prescribe medications if necessary. 10. Please remain within 40 mile radius from our hospital because emergencies do happen now and then during the post-operative period. 11. If you have stairs at home, take one step at a time slowly and minimize the number of trips. It helps to stay in one floor for the next few days. No lifting except what you can lift by one hand until you are released from the post-operative care. 12. Driving is discouraged until you are well healed. It may be 3-4 weeks before you feel strong enough to drive. You should be able to turn and look through the rear window without pain and you should be able to push the brake pedal very hard without pain before you drive. No fast rules, but SAFETY should be your primary concern. DO NOT drive if you are on sedating medications such as narcotics. 13. Call the clinic (during working hours) to make urgent appointment or go to the Emergency room, if any of the following occurs: i. Vaginal bleeding becomes heavy, more than a period. ii. Incision becomes red and sore, or drains pus. iii. Your temperature is over 100.4 or you have chill. iv. IV site becomes red and swollen (a little ``knot?? is usually OK) v. Persistent nausea and vomiting vi. Persistent constipation or diarrhea vii. Rash or allergic reaction to medications. Discharge Attestations CRUTCHING CONTRACTOR Time Spent in Discharge Care*: greater than 30 min Coding Level of Care Code Acute Tool And Die Maker/Designer for Yajaira Lal
[2022-04-07 13:45] VITALS: BP 121/76; PULSE 74; RESP 16; TEMP 36.7; O2SAT 99
== END 2022-04-07 13:27 | disposition home or self-care (01) ==
LOC: OBGYN 04-07 08:02
PROVIDERS: Admitting Provider Obstetrics & Gynecology; PCP Family Medicine; Visit Provider Obstetrics & Gynecology
PROC: (CPT 58662; principal; 2022-04-06 17:00)
DX: N83.201 Unspecified ovarian cyst, right side (principal)
CPT/HCPCS: 58662; 36415; 80053; 81001; 81025; 85025; 85027; 86850; 86900; 88304; G0378; J1100; J1200; J1885; J2250; J2405; J2704; J3010; J7030; J7040

== ENCOUNTER 2022-05-22 18:40 | Emergency (ER) | payer OTHER, SELFPAY ==
[2022-05-22 18:48] VITALS: BP 112/76; PULSE 118; RESP 20; TEMP 39.3; O2SAT 96
--- NOTE | 2022-05-22 20:37 | XRR_ITS ---
PROCEDURE INFORMATION: Exam: XR Chest Exam date and time: 05/22/2022 10:15 PM Age: 31 years old Clinical indication: Cough and dyspnea and shortness of breath; Patient HX: Tired; Additional info: Fever TECHNIQUE: Imaging protocol: Radiologic exam of the chest. Views: 2 views. COMPARISON: CR XR chest 1V portable [id number] 05/17/2021 1:51 PM FINDINGS: Lungs: Unremarkable. No consolidation. Pleural spaces: Unremarkable. No pleural effusion. No pneumothorax. Heart/Mediastinum: Unremarkable. No cardiomegaly. Bones/joints: Unremarkable. XR/XR chest 2V* [id number] IMPRESSION: No acute findings.
--- NOTE | 2022-05-22 20:38 | W.ED.SOB ---
HPI - SOB/Dyspnea General: Chief Complaint: Shortness of Breath/Dyspnea Stated Complaint: General Medicine Time Seen by Provider: 05/22/22 20:38 History of Present Illness: HPI Narrative: Ms. Morse is a 31-year-old lady with significant past medical history of migraines and well-controlled asthma presenting to the emergency department due to shortness of breath and generalized illness. Onset of symptoms was approximately 2 days ago and subacute primarily with upper respiratory symptoms including cough, congestion, shortness of breath. She was seen by urgent care and placed on steroids with diagnosis of upper respiratory infection however is continued to worsen. Fevers and headache today. Significant fatigue and dehydration with elevated heart rate. Intensity symptoms is moderate to severe. No other specific changes in health, exacerbating, or alleviating factors identified. Onset (ago): day(s) Timing: progressively worsening Severity: moderate Associated symptoms: Reports chest congestion, cough, myalgias and palpitations Review of Systems General: Reports: 10 or more systems reviewed and unremarkable except in HPI and below Card: Reports: palpitations Resp: Reports: chest congestion PFSH ED PFSH: Medical History Unspecified asthma, uncomplicated Surgical History History of nasal sinusotomy (~2008) Balloon sinuplasty, Dr. Wang, [place], [place] S/P adenoidectomy (~2008) Dr. Wang [place], [place] S/P appendectomy (07/05/11) Diagnotic Laparoscopy with appendectomy. Diagnosis: Right lower quadrant pain, probably mesenteric adenitis. Performed by Dr. Bravo at [facility] in [place], [place]. 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 Dr. Major @ [place], [place]. S/P tonsillectomy (~2009) Dr. Wang [place], [place] teeth extracted (~2015) Dr. Leonardo Guzman [place] Family History Grandmother Clotting disorder Deep vein thrombosis - Maternal grandmother and Maternal great uncle Stroke Multiple extended family history Dementia Vascular, with endstage COPD Lung disease Smoking induced Mother Psychiatric illness Bipolar Denies family history of Diabetes CAD (coronary artery disease) Hyperlipidemia Chronic kidney disease (CKD) Suicide Anesthesia complication Bleeding disorder Family history of premature coronary artery disease Cancer Hypertension Social History Smoking and tobacco status: never smoked Alcohol intake: never Female Reproductive History: Date of last menstrual period: 03/15/22 Physical Exam Const: COMMON NORMALS: alert GENERAL APPEARANCE: cooperative, well developed and ill appearing (Somewhat) HENMT: COMMON NORMALS: normocephalic and atraumatic HEAD & SCALP: normocephalic and atraumatic Eye: COMMON NORMALS: conjunctivae normal CONJUNCTIVA: Yes conjunctivae normal SCLERA: sclerae normal Neck/C-Spine: COMMON NORMALS: supple GENERAL: Yes trachea midline Resp: EFFORT & INSPECTION: Yes able to speak in complete sentences AUSCULTATION: diminished lung sounds Cardio: COMMON NORMALS: regular rhythm RATE: tachycardic RHYTHM: regular rhythm GI: COMMON NORMALS: Soft to palpation PALPATION: Yes Soft to palpation and No Tenderness to palpation present (GI) Extremity: GENERAL: Yes normal exam except as noted and No edema Neuro: COMMON NORMALS: moves all extremities SENSORIUM/ORIENTATION: Yes alert and No Orientation impaired Psych: COMMON NORMALS: mental status grossly normal and Normal thought process present THOUGHT PROCESS: Normal thought process present Course Vital Signs: Vital signs: Vital Signs Temperature 99.8 F H 05/22/22 22:00 Pulse Rate 92 05/22/22 22:58 Respiratory Rate 15 05/22/22 22:58 Blood Pressure 98/58 05/22/22 22:58 Pulse Oximetry 97 05/22/22 22:58 Oxygen Delivery Me thod 05/22/22 22:00 MDM - SOB/Dyspnea Medical Decision Making 31-year-old lady presenting with generalized illness. Somewhat ill-appearing on exam. No focal neurologic deficits on exam. Mild leukopenia, normal hemoglobin. Metabolic panel with mild hypokalemia and evidence of dehydration. No UTI given squamous epithelial contamination. Flu positive. Chest x-ray with no lobar consolidation or pneumothorax. Mild improved upon reassessment. Likely etiology of patient symptoms is influenza infection. Given history of asthma reasonable to treat patient with Tamiflu. The results of ED evaluation were discussed with the patient including prescriptions and/or symptomatic cares (if applicable) including appropriate and responsible use, followup plan, and return precautions. The patient verbalized understanding and felt safe for discharge. Medical Records I reviewed the patient's medical records. Lab Data I reviewed the patient's lab results. : 05/22/22 20:50 05/22/22 20:50 Labs/Radiology: Radiology Impressions Chest X-Ray 05/22/22 20:37 IMPRESSION: No acute findings. Laboratory Results WBC 3.8 10^3/uL (4.0-10.0) L 05/22/22 20:50 RBC 4.48 10^6/uL (4.1-5.3) 05/22/22 20:50 Hgb 12.9 g/dL (11.5-15.3) 05/22/22 20:50 Hct 38.1 % (37.0-47.0) 05/22/22 20:50 MCV 85.0 fl (81-99) 05/22/22 20:50 MCH 28.8 pg (28.0-34.0) 05/22/22 20:50 MCHC 33.9 g/dL (30.0-36.0) 05/22/22 20:50 RDW 11.9 % (12.1-15.1) L 05/22/22 20:50 Plt Count 215 10^3/cmm (130-400) 05/22/22 20:50 MPV 10.5 fL (7.4-10.4) H 05/22/22 20:50 Neut % (Auto) 53.0 % 05/22/22 20:50 Lymph % (Auto) 25.9 % 05/22/22 20:50 [place] % (Auto) 20.0 % 05/22/22 20:50 Eos % (Auto) 0.3 % 05/22/22 20:50 Baso % (Auto) 0.3 % 05/22/22 20:50 Neut # (Auto) 1.99 10^3/uL (1.8-7.7) 05/22/22 20:50 Lymph # (Auto) 1.0 10^3/uL (0.8-4.8) 05/22/22 20:50 [place] # (Auto) 0.8 10^3/uL (0.2-0.9) 05/22/22 20:50 Eos # (Auto) 0.0 10^3/uL (0.0-0.8) 05/22/22 20:50 Baso # (Auto) 0.0 10^3/uL (0.0-0.1) 05/22/22 20:50 Nucleated RBC % (auto) 0 % 05/22/22 20:50 Nucleated RBCs # 0.0 /100WBC 05/22/22 20:50 Sodium 138 mmol/L (136-145) 05/22/22 20:50 Potassium 3.3 mmol/L (3.5-5.1) L 05/22/22 20:50 Chloride 99 mmol/L (98-107) 05/22/22 20:50 Carbon Dioxide 24 mmol/L (22-29) 05/22/22 20:50 Anion Gap 18.3 (5-19) 05/22/22 20:50 BUN 6 mg/dL (6-20) 05/22/22 20:50 Creatinine 0.9 mg/dL (0.5-0.9) 05/22/22 20:50 GFR Calculation 73.0 mL/min (90-130) L 05/22/22 20:50 Glucose 99 mg/dL (65-115) 05/22/22 20:50 Calculated Osmolality 284 mOsm/kg (285-295) L 05/22/22 20:50 Lactic Acid 1.1 mmol/L (0.5-2.2) 05/22/22 20:50 Calcium 9.4 mg/dL (8.5-10.5) 05/22/22 20:50 Total Bilirubin 0.4 mg/dL (0.15-1.2) 05/22/22 20:50 AST 17 U/L (0-32) 05/22/22 20:50 ALT 14 U/L (0-33) 05/22/22 20:50 Alkaline Phosphatase 73 U/L (35-105) 05/22/22 20:50 Total Protein 7.4 g/dL (6.6-8.7) 05/22/22 20:50 Albumin 4.5 g/dL (3.5-5.2) 05/22/22 20:50 Globulin 2.9 g/dL (1.3-4.6) 05/22/22 20:50 Urine Color Yellow (Yellow) 05/22/22 22:22 Urine Appearance Sl hazy (CLEAR) A 05/22/22 22:22 Urine pH 6.5 (5-7) 05/22/22 22:22 Ur Specific [place] 1.010 (1.005-1.030) 05/22/22 22:22 Urine Protein Neg (Negative) 05/22/22 22:22 Urine Glucose (UA) Norm (Normal) 05/22/22 22:22 Urine Ketones Negative (Negative) 05/22/22 22:22 Urine Blood Neg (Negative) 05/22/22 22:22 Urine Nitrate Negative (Negative) 05/22/22 22:22 Urine Bilirubin Neg (Negative) 05/22/22 22:22 Urine Urobilinogen Norm mg/dL (Negative) 05/22/22 22:22 Ur Leukocyte Esterase 1+ (Negative) H 05/22/22 22:22 Urine RBC None /hpf (0-2) 05/22/22 22:22 Urine WBC 5-10 /hpf (0-5) H 05/22/22 22:22 Ur Squamous Epith Cells 15-25 /hpf (0-5) H 05/22/22 22:22 Amorphous Sediment Not Reportable 05/22/22 22:22 Urine Bacteria 1+ /hpf (NONE) H 05/22/22 22:22 Influenza Type A Ag Positive (Negative) H 05/22/22 21:03 Influenza Type B Ag Negative (Negative) 05/22/22 21:03 SARS-CoV-2 Ag (Rapid) negative (Negative) 05/22/22 21:03 Discharge Plan Discharge Patient Disposition: Home Clinical Impression: Influenza A Condition: Stable Prescriptions: New ondansetron 4 mg tablet,disintegrating 4 mg PO Q8H PRN (Reason: nausea and vomiting) Qty: 15 0RF No Action albuterol sulfate 90 mcg/actuation HFA aerosol inhaler 2 puff INHALATION Q4H PRN (Reason: Shortness Of Breath) Qty: 8.5 2RF levocetirizine [Xyzal] 5 mg tablet 5 mg PO DAILY fluticasone propionate [Children's Flonase Allergy Rlf] 50 mcg/actuation spray,suspension 2 spray intranasal DAILY Qty: 16 0RF Rx Instructions: administer into each nostril prednisone 20 mg tablet 40 mg PO DAILY 5 Days Qty: 10 0RF epinephrine 0.3 mg/0.3 mL auto-injector 0.3 mg IM Q4H PRN (Reason: anaphylaxis) Qty: 2 0RF fluoxetine 40 mg capsule 40 mg PO QAM Qty: 90 1RF sumatriptan succinate 25 mg tablet See Rx Instructions PO .COMPLEX Qty: 30 2RF Rx Instructions: take 1 tab at onset of headache; if no relief may repeat 1 tab after at least 2 hrs; max = 4 tabs/24 hr PO acetaminophen 325 mg capsule 325 mg PO Q4H PRN (Reason: fever or pain) Qty: 60 0RF ibuprofen 800 mg tablet 800 mg PO TID PRN (Reason: pain) Qty: 60 0RF Discharge Orders: Discharge ED (Routine); Ordered 05/22/22 Ordered By: Saul Hernandez Referrals: Wai William, [Primary Care Provider] - Discharge Diet: Usual diet Discharge Activity: Increase activity as tolerated Patient Instructions: Ondansetron (By mouth), Oseltamivir (By mouth), Influenza (ED) Activity Restrictions/Additional Instructions: Thank you for visiting the emergency department. You were seen and evaluated for generalized illness. The most likely cause of your symptoms is influenza. Given underlying asthma I will prescribe Tamiflu. I will also prescribe antinausea medication. You may use [id number] medications for symptoms however please do not exceed the daily recommended dosage and please keep in mind that many namebrand medications contain the same active ingredients. Return to the emergency department for uncontrolled symptoms, fevers that do not improve with appropriate dose antipyretic, mental status changes, inability to tolerate oral intake, oxygen saturation less than 90% or respiratory distress, or anything else that you are concerned about a feel needs emergency department evaluation. Stand Alone Forms: Work/School Release Coding Level of Care Code ED Director Of Philanthropy for Yajaira Lal
[2022-05-22] MEDS: ipratropium-albuterol 3 mL Neb INHALATION (21:03)
[2022-05-22 21:04] VITALS: PULSE 104; RESP 16; O2SAT 99
[2022-05-22] MEDS: diphenhydrAMINE 50 mg/mL SDV 1mL 25 MG IVP (21:10)
[2022-05-22] MEDS: metoclopramide 5 mg/mL SDV 2 mL 10 MG IVP (21:12)
[2022-05-22 21:13] LABS: Basophils % 0.3 %; Eosinophils % 0.3 %; Hematocrit 38.1 % (37.0-47.0); Hemoglobin 12.9 g/dL (11.5-15.3); Lymphocytes % 25.9 %; Mean Corpuscular HGB Conc 33.9 g/dL (30.0-36.0); Mean Corpuscular Hemoglobin 28.8 pg (28.0-34.0); Mean Platelet Volume 10.5 fL (7.4-10.4); Monocytes # 0.8 10^3/uL (0.2-0.9); Neutrophils # 1.99 10^3/uL (1.8-7.7); Nucleated Red Blood Cells % 0 %; Platelet Count 215 10^3/cmm (130-400); Red Blood Count 4.48 10^6/uL (4.1-5.3); Red Cell Distribution Width 11.9 % (12.1-15.1); White Blood Count 3.8 10^3/uL (4.0-10.0)
[2022-05-22 21:35] LABS: Alanine Aminotransferase 14 U/L (0-33); Albumin Level 4.5 g/dL (3.5-5.2); Alkaline Phosphatase 73 U/L (35-105); Anion Gap 18.3 (5-19); Aspartate Amino Transferase 17 U/L (0-32); Blood Urea Nitrogen 6 mg/dL (6-20); Calcium 9.4 mg/dL (8.5-10.5); Carbon Dioxide 24 mmol/L (22-29); Chloride 99 mmol/L (98-107); Globulin 2.9 g/dL (1.3-4.6); Glucose 99 mg/dL (65-115); Osmolality Calculated 284 mOsm/kg (285-295); Potassium 3.3 mmol/L (3.5-5.1); Sodium 138 mmol/L (136-145); Total Bilirubin 0.4 mg/dL (0.15-1.2); Total Protein 7.4 g/dL (6.6-8.7)
[2022-05-22 21:36] LABS: Lactic Sepsis W/Reflex 1.1 mmol/L (0.5-2.2)
[2022-05-22 21:40] LABS: SARS Covid-2 Antigen negative (Negative)
[2022-05-22] MEDS: ketorolac 30 mg/mL INJ 15 MG IVP (21:55)
[2022-05-22 22:00] VITALS: PULSE 112; RESP 17; TEMP 37.7; O2SAT 95
[2022-05-22 22:26] LABS: Influenza A by IFA Positive (Negative)
[2022-05-22 22:27] LABS: Influenza B by IFA Negative (Negative)
[2022-05-22 22:58] VITALS: BP 98/58; PULSE 92; RESP 15; O2SAT 97
[2022-05-22 23:23] LABS: Bilirubin Urine Neg (Negative); Blood Urine Neg (Negative); Glucose Urine UA Norm (Normal); Ketones Urine Negative (Negative); Nitrate Urine Negative (Negative); Protein Urine Neg (Negative); Urine Appearance SL Hazy (CLEAR); Urine Color Yellow (Yellow); pH Urine 6.5 (5-7)
[2022-05-22 23:24] LABS: Add Urine Microscopic? YES; Bacteria Urine 1+ /hpf; Leukocyte Esterase Urine 1+ (Negative); Squamous Epithelial Cell Urine 15-25 /hpf (0-5); Urobilinogen Urine Norm (Negative)
[2022-05-22 23:25] LABS: Add Urine Culture? No
== END 2022-05-22 22:55 | disposition home or self-care (01) ==
PROVIDERS: Nurse Practitioner Family; Emergency Provider Emergency Medicine; PCP Family Medicine
DX: J10.1 Influenza due to other identified influenza virus with other respiratory manifestations (principal); E87.6 Hypokalemia; E86.0 Dehydration; J45.909 Unspecified asthma, uncomplicated
CPT/HCPCS: 71046; 80053; 81001; 83605; 85025; 87040; 87426; 87804; 94640; 96361; 96374; 96375; 99284; J1200; J1885; J2765; J7030

== ENCOUNTER → 2022-08-15 15:08 | Outpatient (BNVA) | payer OTHER, SELFPAY | PROVIDERS: PCP Family Medicine; Visit Provider Family Medicine | DX: R23.2 Flushing (principal); R53.83 Other fatigue; R63.5 Abnormal weight gain | CPT/HCPCS: 80053; 82672; 83001; 83002; 84144; 84439; 84481 ==

== ENCOUNTER → 2022-09-25 15:33 | Outpatient (BNVA) | payer OTHER, SELFPAY | PROVIDERS: PCP Family Medicine; Visit Provider Nurse Practitioner Family | DX: R30.0 Dysuria (principal); R39.9 Unspecified symptoms and signs involving the genitourinary system; M54.50 Low back pain, unspecified; N30.00 Acute cystitis without hematuria | CPT/HCPCS: 81000; 87086 ==

== ENCOUNTER → 2023-02-18 17:23 | Outpatient (BNVA) | payer OTHER, SELFPAY | PROVIDERS: PCP Family Medicine; Visit Provider Family Medicine | DX: M54.50 Low back pain, unspecified (principal); K52.9 Noninfective gastroenteritis and colitis, unspecified | CPT/HCPCS: 81000 ==

== ENCOUNTER → 2023-02-27 10:16 | Outpatient (BNVA) | payer OTHER, SELFPAY | PROVIDERS: PCP Family Medicine; Visit Provider Obstetrics & Gynecology | DX: N83.201 Unspecified ovarian cyst, right side (principal); G89.29 Other chronic pain; R10.2 Pelvic and perineal pain | CPT/HCPCS: 76830; 76856 ==

== ENCOUNTER 2023-03-01 20:02 | Observation (INO) | payer OTHER, SELFPAY ==
[2023-03-01] VITALS (12 sets, daily range): BP systolic 89–112; BP diastolic 54–75; PULSE 63–87; RESP 15–18; TEMP 36.1–37.2; O2SAT 93–100; BMI 30.1
[2023-03-01] MEDS: scopolamine 1.5 Patch 1 PATCH TRANSDERMA (15:15)
[2023-03-01] MEDS: ondansetron 2 mg/ML SDV 2 mL 4 MG IVP (15:15)
[2023-03-01] MEDS: diphenhydrAMINE 50 mg/mL SDV 1mL 12.5 MG IVP (15:15)
[2023-03-01] MEDS: HYDROmorphone 1 mg/mL INJ 1 mL 0.5 MG IVP ×3 (15:15→17:04)
[2023-03-01] MEDS: sodium chloride 0.9% 500 ML IV (15:28)
[2023-03-01] MEDS: sodium chloride 0.9% 1,000 ML 30 ML IV (15:29)
[2023-03-01 15:33] LABS: Add Urine Microscopic? NO; Charge for UA Resulting for Rev
--- NOTE | 2023-03-01 15:36 | ANES.PREANE2 ---
Pre-Anesthetic Assessment Height/Weight: Height 1.6 m Temp Pulse Resp BP Pulse Ox O2 Del Method 99.0 F 78 18 112/72 97 Room Air 03/01/23 14:30 03/01/23 14:30 03/01/23 14:30 03/01/23 14:30 03/01/23 14:30 03/01/23 14:46 Preop Diagnosis: right hemorrhagic ovarian cyst Operation Date: 03/01/23 17:00 Proposed Procedures p Laparoscopic Ovarian Cystectomy(Right) - Sly Irwin MD s Laparoscopic Oophorectomy(Right) - Sly Irwin MD Familial anesthetic complications: PONV Was Beta Nikita taken within 24 hours: N/A Was Clonidine taken within 24 hours: N/A Last intake: Intake Last Liquid Date 03/01/23 Last Liquid Time 08:00 Last Solid Date 03/01/23 Last Solid Time 08:00 Social No alcohol and No tobacco Exam alert, oriented x 3, clear to auscultation bilaterally and regular rate & rhythm Airway Submandibular: within normal limits Cervical ROM: within normal limits Mallampati: Class I Dentition: full Pulmonary Asthma Metabolic Thyroid Disease Neuropsych Anxiety and Headache Anesthetic Plan ASA status: 2E Anesthesia: General Medications/Allergies Home Medications Medication Instructions Recorded Confirmed Last Taken Type levocetirizine 5 mg tablet (Xyzal) 5 mg PO DAILY 01/09/22 03/01/23 04/05/22 History epinephrine 0.3 mg/0.3 mL 0.3 mg (0.3 mL) IM Q4H PRN 01/18/22 03/01/23 04/05/22 Rx injection, auto-injector anaphylaxis #2 ea acetaminophen 325 mg capsule 325 mg PO Q4H PRN fever or pain 03/22/22 03/01/23 04/05/22 Rx #60 caps fluticasone propionate 50 2 spray intranasal DAILY nasal 03/28/22 03/01/23 04/05/22 Rx mcg/actuation nasal congestion #16 grams spray,suspension (Children's Flonase Allergy Relief) sumatriptan succinate 25 mg tablet See Rx Instructions PO .COMPLEX 04/05/22 03/01/23 04/05/22 Rx #30 tabs albuterol sulfate 2.5 mg/3 mL 2.5 mg (3 mL) inhalation Q6H #180 05/28/22 03/01/23 Unknown Rx (0.083 %) solution for nebulization mL ibuprofen 800 mg tablet 800 mg PO TID PRN pain #90 tabs 02/27/23 03/01/23 Unknown Rx albuterol sulfate 90 mcg/actuation 2 puff inhalation PRN PRN Wheezing 03/01/23 03/01/23 Unknown History aerosol inhaler fluoxetine 40 mg capsule 40 mg PO DAILY 03/01/23 03/01/23 Unknown History levothyroxine 50 mcg tablet 50 mcg PO DAILY 03/01/23 03/01/23 Unknown History naltrexone 8 mg-bupropion 90 mg 1 tab PO BID 03/01/23 03/01/23 Unknown History tablet,extended release (Contrave) Allergies Allergy/AdvReac Type Severity Reaction Status Date / Time morphine Allergy Agitated, Verified 03/01/23 13:34 Hives dermabond Allergy Intermediate blisters Uncoded 03/01/23 13:34 Current Medications Generic Name Dose Route Start Last Admin Trade Name Freq PRN Reason Stop Dose Admin Diphenhydramine HCl 12.5 mg 03/01/23 14:50 03/01/23 15:15 Diphenhydramine 50 Mg/Ml Sdv 1ml IVP 12.5 mg ONCE PRN Administration PONV Hydromorphone HCl 0.5 mg 03/01/23 14:50 03/01/23 15:15 Hydromorphone 1 Mg/Ml Inj 1 Ml IVP 0.5 mg ONCE PRN Administration For preop pain/anxiety Sodium Chloride 1,000 mls @ 30 mls/hr 03/01/23 15:00 03/01/23 15:29 Sodium Chloride 0.9% IV 03/02/23 14:59 30 mls/hr .Q24H [place] Administration Sodium Chloride 500 mls @ 500 mls/hr 03/01/23 14:52 03/01/23 15:28 Sodium Chloride 0.9% IV 03/01/23 15:51 500 mls/hr ONCE ONE Administration Ondansetron HCl 4 mg 03/01/23 14:50 03/01/23 15:15 Ondansetron 2 Mg/Ml Sdv 2 Ml IVP 4 mg ONCE PRN Administration NAUSEA AND VOMITING PFSH Anesthesia Medical History Unspecified asthma, uncomplicated Surgical History History of nasal sinusotomy (~2008) Balloon sinuplasty, Dr. Wang [place], [place] S/P adenoidectomy (~2008) Dr. Wang [place], [place] S/P appendectomy (07/05/11) Diagnotic Laparoscopy with appendectomy. Diagnosis: Right lower quadrant pain, probably mesenteric adenitis. Performed by Dr. Bravo at [facility] in [place], [place]. 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 Dr. Major @ [place], [place]. S/P tonsillectomy (~2009) Dr. Wang, [place], [place] teeth extracted (~2015) Dr. Patterson [place], [place] Family History Grandmother Clotting disorder Deep vein thrombosis - Maternal grandmother and Maternal great uncle Stroke Multiple extended family history Dementia Vascular, with endstage COPD Lung disease Smoking induced Mother Psychiatric illness Bipolar Denies family history of Diabetes CAD (coronary artery disease) Hyperlipidemia Chronic kidney disease (CKD) Suicide Anesthesia complication Bleeding disorder Family history of premature coronary artery disease Cancer Hypertension Social History Smoking and tobacco status: never smoked Alcohol intake: never Substance/Drug Use: never Data Anesthesia Cardiac Studies: Holter Monitor 05/01/21
[2023-03-01 15:43] LABS: Bilirubin Urine Neg (Negative); Blood Urine Neg (Negative); Glucose Urine UA Norm (Normal); Ketones Urine Negative (Negative); Leukocyte Esterase Urine Negative (Negative); Nitrate Urine Negative (Negative); Protein Urine Neg (Negative); Urine Appearance Clear (CLEAR); Urine Color Yellow (Yellow); Urobilinogen Urine Norm (Negative); pH Urine 5 (5-7)
[2023-03-01 15:51] LABS: Basophils % 0.4 %; Eosinophils # 0.5 10^3/uL (0.0-0.8); Eosinophils % 6.2 %; Hematocrit 40.4 % (37.0-47.0); Hemoglobin 13.8 g/dL (11.5-15.3); Lymphocytes # 2.6 10^3/uL (0.8-4.8); Lymphocytes % 32.6 %; Mean Corpuscular HGB Conc 34.2 g/dL (30.0-36.0); Mean Corpuscular Hemoglobin 28.1 pg (28.0-34.0); Mean Corpuscular Volume 82.3 fl (81-99); Mean Platelet Volume 10.5 fL (7.4-10.4); Monocytes # 0.5 10^3/uL (0.2-0.9); Monocytes % 6.3 %; Neutrophils # 4.32 10^3/uL (1.8-7.7); Neutrophils % 54.4 %; Nucleated Red Blood Cells % 0 %; Platelet Count 302 10^3/cmm (130-400); Red Blood Count 4.91 10^6/uL (4.1-5.3); Red Cell Distribution Width 12.5 % (12.1-15.1); White Blood Count 7.9 10^3/uL (4.0-10.0)
[2023-03-01 15:53] LABS: OR HCG Qualitative Urine Negative (Negative)
[2023-03-01 16:19] LABS: Alanine Aminotransferase 11 U/L (0-33); Albumin Level 4.6 g/dL (3.5-5.2); Alkaline Phosphatase 69 U/L (35-105); Blood Urea Nitrogen 12 mg/dL (6-20); Calcium 9.7 mg/dL (8.5-10.5); Carbon Dioxide 25 mmol/L (22-29); Chloride 103 mmol/L (98-107); Globulin 2.7 g/dL (1.3-4.6); Glucose 75 mg/dL (65-115); Osmolality Calculated 286 mOsm/kg (285-295); Sodium 139 mmol/L (136-145); Total Bilirubin 0.3 mg/dL (0.15-1.2); Total Protein 7.3 g/dL (6.6-8.7)
[2023-03-01 16:27] LABS: Anion Gap 15.1 (5-19); Aspartate Amino Transferase 18 U/L (0-32); Potassium 4.1 mmol/L (3.5-5.1)
--- NOTE | 2023-03-01 17:03 | W.PM.OPSUD ---
Surgery/Procedure H&P Update DATE OF PROCEDURE: March 01, 2023 DATE H&P PERFORMED: 03/01/23 H&P UPDATE INFORMATION: I have reviewed H&P completed within last 30 days, I have examined patient prior to procedure and No changes to prior documentation PREOP DIAGNOSIS: right hemorrhagic ovarian cyst PLANNED PROCEDURE: Operation Date: 03/01/23 17:00 Proposed Procedures p Laparoscopic Ovarian Cystectomy(Right) - Sly Irwin MD s Laparoscopic Oophorectomy(Right) - Sly Irwin MD
[2023-03-01] MEDS: ceFAZolin 2,000 MG in sodium chloride 0.9% (plus) 50 ML 100 MG IV (17:08)
[2023-03-01] MEDS: BUPivacaine 0.5% INJ 30 mL 20 ML INJECTION (18:06)
--- NOTE | 2023-03-01 18:27 | PM.OP ---
Operative Report Date of procedure: March 01, 2023 Pre-op diagnosis: Preop Diagnosis right hemorrhagic ovarian cyst Post-op diagnosis: Same Post-op findings: Enlarged right ovary. Pelvic adhesions Procedure done: Laparoscopic right oophorectomy. Lysis of adhesions Specimens removed/disposition: Right ovary Surgeon: Sly Irwin MD Estimated blood loss (mL): 10 IV fluids (mL): 800 Urine output (mL): 150 Complications: None Brief History: Mrs. Morse 32-year-old female G2, P2 with a history of recurrent right hemorrhagic cyst. Procedure: After informed consent, the patient was taken to the operating room where general anesthesia was administered. Pre-Procedure Time-Out verifying the correct patient identity, correct procedure verified with consent, correct site and side, correct patient position, availability of correct implants and any special equipment or requirements was performed and acknowledge by the OR team. She was placed in the dorsal lithotomy position and prepped and draped in sterile fashion. The patient was examined under anesthesia. A Rubalcava catheter was placed in the bladder. The attention was brought to abdomen after changing gloves. The base of the umbilicus was grasped with an Allis clamp and with 2 towel clamp bilaterally tenting up the umbilicus an intraumbilical incision was made with a scalpel. While tenting up on the abdomen, a Verres needle with sleeve was admitted into the intra-abdominal cavity. A saline drop test was performed and noted to be within normal limits. Pneumoperitoneum was attained with 4 liters of carbon dioxide. The gas was seen to flow freely with normal resistance, so the CO2 gas was advanced to a higher setting. The abdomen was insufflated to an adequate distension. Once an adequate distention was reached, the Verres needle was removed. Then a 5 mm Optiview trocar and cannula were inserted under direct visualization without complications. Trocars were removed and the laparoscope was inserted. At this time, a second incision was made 3 cm above the symphysis pubis, and a 10 mm trocar and sleeve were admitted into the abdomen under direct, laparoscopic visualization without complication. A 5 mm blunt probe was advanced through the second trocar sleeve, and light manipulation of the ovaries to assess the pelvis and cul-de-sac was performed. The survey showed an enlarged right ovary adhered to right pelvic wall and pelvic adhesions thin cul-de-sac.. A third incision was made in the left lower quadrant and the third trocar was inserted into the abdomen under direct visualization. Examination of the pelvis revealed findings as above. At this time, the left ovary cyst appeared to be normal. Attention was turned to the enlarged right ovary which could not be mobilized out of the pelvis due to adhesion. At this point, it was dissected initially using hydrodissection and using blunt dissection. The infundibulopelvic ligament at the level of the ovary was grasped clamped sealed and cut with the LigaSure toward laparoscopic device. Suction was used to drain fluid at this time from the various cyst of the ovary had. At this time, the the right ovary was removed using blunt dissection with countertraction. The ovary was placed in the cul-de-sac. The ovarian bed was then irrigated and dried. The pelvis was then irrigated, and once hemostasis was assured, the Endo Catch bag was placed through the 10 mm port and the right ovary was placed in the Endo Catch bag and removed through the 10 mm incision without difficulty. At this time, the pelvis was again copiously irrigated and dried. Hemostasis was assured. A Surgicel film was applied to the right ovarian bed for adhesion prevention. At this time, all instruments were removed under visualization. The umbilical incision was closed using 2 interrupted stitches of 2-0 Vicryl sutures and the skin was closed using interrupted stitches of 4-0 Monocryl suture. Steri-Strips were placed after closure on the ports. All instruments were removed. The patient tolerated the procedure well, and sponge, lap and needle count were correct times two. The patient taken to the recovery room in good condition. This documentation was created by [employer] cardiopulmonary technician and eeg tech software (known for inherent cardiopulmonary technician and eeg tech error). Every effort was made to assure accuracy of cardiopulmonary technician and eeg tech. But this EMR does not have a medical dictionary spell check.
--- NOTE | 2023-03-01 19:04 | ANE.PACU2 ---
Inpatient post-anesthesia follow up: Airway intact: Yes Vital signs: Temperature 97 F Pulse Rate 63 Respiratory Rate 16 Blood Pressure 95/56 Pulse Oximetry 99 Oxygen Delivery Me thod Simple Mask Oxygen Flow Rate 6 Fraction of Inspir ed Oxygen Hydration adequate: Yes Nausea and vomiting: No Pain level: 2 Mental status: Baseline
[2023-03-01] MEDS: dextrose 5%-lactated ringers 1,000 ML 125 ML IV (20:19)
[2023-03-01] MEDS: ketorolac 30 mg/mL INJ IVP (20:19)
[2023-03-01] MEDS: HYDROcodone-acetaminophen 5-325 mg Tablet PO (21:41)
[2023-03-02 01:00] VITALS: BP 91/60; PULSE 69; RESP 16; TEMP 36.6; O2SAT 97
[2023-03-02] MEDS: ketorolac 30 mg/mL INJ IVP (02:17)
[2023-03-02] MEDS: HYDROcodone-acetaminophen 5-325 mg Tablet PO ×2 (03:36→09:32)
[2023-03-02 05:18] VITALS: BP 105/64; PULSE 60; RESP 15; TEMP 36.7; O2SAT 96
[2023-03-02 05:22] LABS: Hematocrit 36.8 % (37.0-47.0); Hemoglobin 12.8 g/dL (11.5-15.3); Mean Corpuscular HGB Conc 34.8 g/dL (30.0-36.0); Mean Corpuscular Hemoglobin 28.4 pg (28.0-34.0); Mean Corpuscular Volume 81.6 fl (81-99); Mean Platelet Volume 10.4 fL (7.4-10.4); Platelet Count 237 10^3/cmm (130-400); Red Blood Count 4.51 10^6/uL (4.1-5.3); Red Cell Distribution Width 12.3 % (12.1-15.1)
[2023-03-02 07:33] VITALS: BP 97/59; PULSE 69; RESP 16; TEMP 36.8; O2SAT 98
[2023-03-02] MEDS: ibuprofen 800 mg tablet PO (07:39)
--- NOTE | 2023-03-02 08:21 | P.DS_ITS ---
Discharge Providers ANIMAL TREATMENT INVESTIGATOR Date of Admission: 03/01/23 20:02 Date of Discharge: 03/02/23 Attending Provider at Admission: Sly Irwin MD Attending Provider at Discharge: Sly Irwin MD Primary ANIMAL TREATMENT INVESTIGATOR: Sly Irwin MD Primary Care Provider: Wai William DO Reason for Visit Reason for Visit: Laproscropic cystomectomy Brief History: Mrs. Morse 32-year-old female G2, P2 post TVH anterior colporrhaphy and single incision mid urethral sling with a history of recurrent right ovarian hemorrhagic cysts with pelvic pain. Hospital Course Hospital Course Mrs. Morse 32-year-old female G2, P2 admitted for diagnostic laparoscopy and planned right oophorectomy. The procedure was performed without complications. Overnight observation uneventful. Tolerating diet well. Adequate urine output. Ambulating without difficulty. She is afebrile and hemodynamically stable postoperative day 1. She was counseled regarding pelvic rest for 6 weeks (no sex, no tampons, no vaginal douches). Return to the emergency room if any fever, increased bleeding or pain. Physical Exam Narrative: GA: Alert and oriented ?3. HEENT: WNL. Heart: Regular rate and rhythm. Lungs: Clear to auscultation bilaterally. Abdomen: Bowel sounds present, nontender, minimal tenderness, incision clean and dry, no redness, pain or edema. ELASTIC YARN TWISTER HELPER: No bleeding. Extremities: No edema, no cyanosis, no calves pain. Urinary Catheter Management: Rubalcava: Cath Placed During This Visit: yes, but has since been removed by the nurse Reason for Continuing Indwelling Catheter: Decision to DC Catheter Urinary Catheter Date of Insertion: 03/01/23 Urinary Catheter Time of Insertion: 17:30 Date Urinary Catheter Removed: 03/02/23 Time Urinary Catheter Discontinued: 05:20 History History History 2 Term 2 0 Miscarriages/Ectopic 0 Living Children 2 Discharge Data Studies Completed and Pending Pending at discharge Category Date Time Status Pathology: Surgical [PTH] Routine Pth 03/01/23 18:00 Ordered Laboratory Results WBC 13.0 10^3/uL (4.0-10.0) H 03/02/23 05:11 RBC 4.51 10^6/uL (4.1-5.3) 03/02/23 05:11 Hgb 12.8 g/dL (11.5-15.3) 03/02/23 05:11 Hct 36.8 % (37.0-47.0) L 03/02/23 05:11 MCV 81.6 fl (81-99) 03/02/23 05:11 MCH 28.4 pg (28.0-34.0) 03/02/23 05:11 MCHC 34.8 g/dL (30.0-36.0) 03/02/23 05:11 RDW 12.3 % (12.1-15.1) 03/02/23 05:11 Plt Count 237 10^3/cmm (130-400) 03/02/23 05:11 MPV 10.4 fL (7.4-10.4) 03/02/23 05:11 Neut % (Auto) 54.4 % 03/01/23 15:16 Lymph % (Auto) 32.6 % 03/01/23 15:16 Crisp % (Auto) 6.3 % 03/01/23 15:16 Eos % (Auto) 6.2 % 03/01/23 15:16 Baso % (Auto) 0.4 % 03/01/23 15:16 Neut # (Auto) 4.32 10^3/uL (1.8-7.7) 03/01/23 15:16 Lymph # (Auto) 2.6 10^3/uL (0.8-4.8) 03/01/23 15:16 Crisp # (Auto) 0.5 10^3/uL (0.2-0.9) 03/01/23 15:16 Eos # (Auto) 0.5 10^3/uL (0.0-0.8) 03/01/23 15:16 Baso # (Auto) 0.0 10^3/uL (0.0-0.1) 03/01/23 15:16 Nucleated RBC % (auto) 0 % 03/01/23 15:16 Nucleated RBCs # 0.0 /100WBC 03/01/23 15:16 Sodium 139 mmol/L (136-145) 03/01/23 15:16 Potassium 4.1 mmol/L (3.5-5.1) 03/01/23 15:16 Chloride 103 mmol/L (98-107) 03/01/23 15:16 Carbon Dioxide 25 mmol/L (22-29) 03/01/23 15:16 Anion Gap 15.1 (5-19) 03/01/23 15:16 BUN 12 mg/dL (6-20) 03/01/23 15:16 Creatinine 0.7 mg/dL (0.5-0.9) 03/01/23 15:16 GFR Calculation 97.0 mL/min (90-130) 03/01/23 15:16 Glucose 75 mg/dL (65-115) 03/01/23 15:16 Calculated Osmolality 286 mOsm/kg (285-295) 03/01/23 15:16 Calcium 9.7 mg/dL (8.5-10.5) 03/01/23 15:16 Total Bilirubin 0.3 mg/dL (0.15-1.2) 03/01/23 15:16 AST 18 U/L (0-32) 03/01/23 15:16 ALT 11 U/L (0-33) 03/01/23 15:16 Alkaline Phosphatase 69 U/L (35-105) 03/01/23 15:16 Total Protein 7.3 g/dL (6.6-8.7) 03/01/23 15:16 Albumin 4.6 g/dL (3.5-5.2) 03/01/23 15:16 Globulin 2.7 g/dL (1.3-4.6) 03/01/23 15:16 Urine Color Yellow (Yellow) 03/01/23 15:16 Urine Appearance Clear (CLEAR) 03/01/23 15:16 Urine pH 5 (5-7) 03/01/23 15:16 Ur Specific [place] 1.010 (1.005-1.030) 03/01/23 15:16 Urine Protein Neg (Negative) 03/01/23 15:16 Urine Glucose (UA) Norm (Normal) 03/01/23 15:16 Urine Ketones Negative (Negative) 03/01/23 15:16 Urine Blood Neg (Negative) 03/01/23 15:16 Urine Nitrate Negative (Negative) 03/01/23 15:16 Urine Bilirubin Neg (Negative) 03/01/23 15:16 Urine Urobilinogen Norm mg/dL (Negative) 03/01/23 15:16 Ur Leukocyte Esterase Negative (Negative) 03/01/23 15:16 Urine HCG, Qual Negative (Negative) 03/01/23 15:16 Blood Type A Positive 03/01/23 16:26 Rho(D) Type Positive 03/01/23 16:26 Antibody Screen Negative 03/01/23 16:26 Vitals Last Vital Signs Temp 98.2 F 03/02/23 07:33 Pulse 69 03/02/23 07:33 Resp 16 03/02/23 07:33 BP 97/59 03/02/23 07:33 Pulse Ox 98 03/02/23 07:33 O2 Del Method Room Air 03/02/23 07:33 O2 Flow Rate 6 03/01/23 18:58 Discharge Plan Discharge Patient Disposition: Home Condition: Stable Prescriptions: New hydrocodone-acetaminophen 5-325 mg tablet 1 tab PO Q4H PRN (Reason: pain) Qty: 10 0RF acetaminophen 325 mg capsule 325 mg PO Q4H PRN (Reason: fever or postoperative pain) Qty: 60 0RF ibuprofen 800 mg tablet 800 mg PO TID PRN (Reason: pain) Qty: 60 0RF Continued levocetirizine [Xyzal] 5 mg tablet 5 mg PO DAILY fluticasone propionate [Children's Flonase Allergy Rlf] 50 mcg/actuation spray,suspension 2 spray intranasal DAILY Qty: 16 0RF Rx Instructions: administer into each nostril epinephrine 0.3 mg/0.3 mL auto-injector 0.3 mg IM Q4H PRN (Reason: anaphylaxis) Qty: 2 0RF sumatriptan succinate 25 mg tablet See Rx Instructions PO .COMPLEX Qty: 30 2RF Rx Instructions: take 1 tab at onset of headache; if no relief may repeat 1 tab after at least 2 hrs; max = 4 tabs/24 hr PO albuterol sulfate 2.5 mg /3 mL (0.083 %) solution for nebulization 2.5 mg inhalation Q6H Qty: 180 0RF ibuprofen 800 mg tablet 800 mg PO TID PRN (Reason: pain) Qty: 90 0RF acetaminophen 325 mg capsule 325 mg PO Q4H PRN (Reason: fever or pain) Qty: 60 0RF fluoxetine 40 mg capsule 40 mg PO DAILY Rx Instructions: TAKE ONE CAPSULE BY MOUTH EVERY MORNING levothyroxine 50 mcg tablet 50 mcg PO DAILY albuterol sulfate 90 mcg/actuation HFA aerosol inhaler 2 puff inhalation PRN PRN (Reason: Wheezing) Rx Instructions: INHALE 2 PUFFS EVERY FOUR HOURS NEEDED FOR SHORTNESS OF BREATH Contrave 8-90 mg tablet extended release 1 tab PO BID Rx Instructions: TAKE ONE TABLET BY MOUTH EVERY MORNING FOR SEVEN DAYS, THEN increase TO ONE TABLET BY MOUTH TWICE DAILY Discharge Orders: Discharge Order (Routine); Ordered 03/02/23 Ordered By: Sly Irwin Discharge Diet: Usual diet Discharge Activity: Limit activity as instructed Patient Instructions: Opioid Safety, Laparoscopy, Laparoscopic Oophorectomy (GEN) Activity Restrictions/Additional Instructions: 1. Please call [facility] clinic on next working day to make your post-operative appointment in 2 weeks. 2. Please stay home until you come back to the clinic on first post- hospatilization check up. 3. Please follow instructions on your medications CAREFULLY. 4. If you have abdominal incision, do not cover it unless dressing is necessary because of drainage. OK to shower, but avoid bath. Leave steri-strips until they fall off. If they are still on one week after surgery, you may remove them. 5. If you had vaginal surgery or vaginal repair, Dr. Irwin may instruct you to take SITZ bath. 6. Yellow, blood tinged odorous vaginal discharge is usually normal after hysterectomy or vaginal surgeries. 7. No SEXUAL INTERCOURSE, tampons, or douches until you are completely released from the post-operative care. 8. Avoid constipation by eating right and maybe using some Metamucil or Milk of Magnesia. 9. All prescription refills are given during the working hours. Please do no wait till it runs out. Call the clinic at [phone] before your medication runs out. The clinic will get in touch with your doctor to prescribe medications if necessary. 10. Please remain within 40 mile radius from our hospital because emergencies do happen now and then during the post-operative period. 11. If you have stairs at home, take one step at a time slowly and minimize the number of trips. It helps to stay in one floor for the next few days. No lifting except what you can lift by one hand until you are released from the post-operative care. 12. Driving is discouraged until you are well healed. It may be 3-4 weeks before you feel strong enough to drive. You should be able to turn and look through the rear window without pain and you should be able to push the brake pedal very hard without pain before you drive. No fast rules, but SAFETY should be your primary concern. DO NOT drive if you are on sedating medications such as narcotics. 13. Call the clinic (during working hours) to make urgent appointment or go to the Emergency room, if any of the following occurs: i. Vaginal bleeding becomes heavy, more than a period. ii. Incision becomes red and sore, or drains pus. iii. Your TEMPERATURE is over 100.4F or you have chill. iv. IV site becomes red and swollen (a little ``knot?? is usually OK) v. Persistent nausea and vomiting vi. Persistent constipation or diarrhea vii. Rash or allergic reaction to medications. Discharge Attestations ANIMAL TREATMENT INVESTIGATOR Time Spent in Discharge Care*: greater than 30 min Coding Level of Care Code Acute Code for Chg Fwd Diagnoses
[2023-03-02] MEDS: fluoxetine 20 mg Capsule 40 MG PO (09:29)
[2023-03-02] MEDS: levothyroxine 50 mcg Tablet PO (09:29)
[2023-03-02] MEDS: docusate sodium 100 mg Capsule PO (09:32)
[2023-03-02] MEDS: fluticasone nasal spray 16gm Btl 2 SPRAY INTRANASAL (09:35)
[2023-03-02 09:40] VITALS: BP 94/59; PULSE 69; RESP 17; TEMP 36.4; O2SAT 99
[2023-03-02 10:00] VITALS: BP 94/59; PULSE 69; RESP 17; TEMP 36.4; O2SAT 99
== END 2023-03-02 10:00 | disposition home or self-care (01) ==
PROVIDERS: Admitting Provider Obstetrics & Gynecology; PCP Family Medicine; Visit Provider Obstetrics & Gynecology
PROC: (CPT 58662; principal; 2023-03-01 17:00)
DX: N83.201 Unspecified ovarian cyst, right side (principal); N83.11 Corpus luteum cyst of right ovary
CPT/HCPCS: 58661; 36415; 51702; 80053; 81003; 84703; 85025; 85027; 86850; 86900; 88305; 96374; 96376; G0378; J0131; J0690; J1100; J1170; J1200; J1885; J2250; J2405; J2704; J3010; J3490; J7030; J7040; J7121

== ENCOUNTER → 2023-10-07 15:30 | Outpatient (BNVA) | payer OTHER, SELFPAY | PROVIDERS: PCP Family Medicine; Visit Provider Family Medicine | DX: E03.9 Hypothyroidism, unspecified (principal); R63.5 Abnormal weight gain; Z71.3 Dietary counseling and surveillance; F41.1 Generalized anxiety disorder; J45.20 Mild intermittent asthma, uncomplicated; R79.89 Other specified abnormal findings of blood chemistry | CPT/HCPCS: 80053; 84439; 84443 ==

== ENCOUNTER 2024-09-16 14:02 | Emergency (ER) | payer OTHER, SELFPAY ==
[2024-09-16 14:09] VITALS: BP 110/73; PULSE 75; RESP 18; TEMP 36.7; O2SAT 99; BMI 27.4
--- NOTE | 2024-09-16 14:30 | ED_ITS ---
HPI - Headache General: Chief Complaint: Headache Stated Complaint: 3 day migraine Time Seen by Provider: 09/16/24 14:26 History of Present Illness: 33-year-old female with a history of estefanía clement headaches who presents emergency room with a 3-day intractable migraine. She is taking sumatriptan which she says she does not normally have to take. She is taken multiple [id number] medications. She has photosensitivity. Diffuse headache. Nausea with vomiting. Related Data Home Medications ?Medication ?Instructions ?Recorded ?Confirmed fluoxetine 40 mg capsule 40 mg PO QAM 09/16/24 levothyroxine 50 mcg tablet 50 mcg PO DAILY 09/16/24 0 09/16/24 Previous Rx's ?Medication ?Instructions ?Recorded epinephrine 0.3 mg/0.3 mL 0.3 mg (0.3 mL) IM Q4H PRN 0 01/18/22 injection, auto-injector anaphylaxis #2 ea sumatriptan succinate 25 mg tablet See Rx Instructions PO .COMPLEX 04/05/22 #30 tabs Allergies Allergy/AdvReac Type Severity Reaction Status Date / Time 2-octyl cyanoacrylate Allergy Intermediate ALGY-Bliste Verified 05/26/24 14:04 r morphine Allergy Agitated, Verified 10/07/23 14:50 Hives Review of Systems Narrative: Constitutional symptoms: Negative except as documented in HPI. Skin symptoms: Negative except as documented in HPI. Eye symptoms: Negative except as documented in HPI. ENMT symptoms: Negative except as documented in HPI. Respiratory symptoms: Negative except as documented in HPI. Cardiovascular symptoms: Negative except as documented in HPI. Gastrointestinal symptoms: Negative except as documented in HPI. Genitourinary symptoms: Negative except as documented in HPI. Musculoskeletal symptoms: Negative except as documented in HPI. Neurologic symptoms: Negative except as documented in HPI. Psychiatric symptoms: Negative except as documented in HPI. Endocrine symptoms: Negative except as documented in HPI. PFSH ED PFSH: Medical History Unspecified asthma, uncomplicated Surgical History History of nasal sinusotomy (~2008) Balloon sinuplasty, Dr. Wang [place] S/P adenoidectomy (~2008) Dr. Wang [place], [place] S/P tonsillectomy (~2009) Dr. Wang, [place], [place] S/P appendectomy (07/05/11) Diagnotic Laparoscopy with appendectomy. Diagnosis: Right lower quadrant pain, probably mesenteric adenitis. Performed by Dr. Bravo at [facility] in [place], [place]. 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 Dr. Major @ [facility], [place], [place]. [place] teeth extracted (~2015) Dr. Patterson [place], [place] Family History Grandmother Clotting disorder Deep vein thrombosis - Maternal grandmother and Maternal great uncle Stroke Multiple extended family history Dementia Vascular, with endstage COPD Lung disease Smoking induced Mother Psychiatric illness Bipolar Denies family history of Diabetes CAD (coronary artery disease) Hyperlipidemia Chronic kidney disease (CKD) Suicide Anesthesia complication Bleeding disorder Family history of premature coronary artery disease Cancer Hypertension Social History Smoking and tobacco/nicotine status: never used tobacco/nicotine Alcohol intake: never Substance/Drug Use: never Physical Exam Narrative: EXAM NARRATIVE: General: Alert, patient appears in some distress. Has photophobia and phonophobia. Skin: warm and dry Head: Normocephalic Neck: Trachea midline Eye: Extraocular movements are intact. Ears, nose, mouth and throat: Oral mucosa moist Respiratory: Respirations are non-labored Musculoskeletal: Normal ROM Neurological: Alert and oriented, No focal neurological deficit observed. Psychiatric: Cooperative, appropriate mood & affect. Course Vital Signs: Vital signs: Vital Signs Temperature 98.1 F 09/16/24 14:09 Pulse Rate 75 09/16/24 14:09 Respiratory Rate 18 09/16/24 14:09 Blood Pressure 110/73 09/16/24 14:09 Pulse Oximetry 99 09/16/24 14:09 Oxygen Delivery Me thod Room Air 09/16/24 14:09 MDM - Headache Medical Decision Making Assessment and plan: Migraine headache - 25 mg IV Benadryl - 30 mg IV Toradol - 10 mg IV Reglan - 8 mg IV Zofran - 60 mg IV Norflex - 1 L normal saline bolus - Discharged home - Discussed plan with patient. Answered any questions. - Evaluation and treatment of this problem were appropriate in the emergency setting. No radiology studies performed this visit Discharge Plan Discharge Patient Disposition: Home Clinical Impression: Migraine Condition: Stable Prescriptions: No Action epinephrine 0.3 mg/0.3 mL auto-injector 0.3 mg IM Q4H PRN (Reason: anaphylaxis) Qty: 2 0RF sumatriptan succinate 25 mg tablet See Rx Instructions PO .COMPLEX Qty: 30 2RF Rx Instructions: take 1 tab at onset of headache; if no relief may repeat 1 tab after at least 2 hrs; max = 4 tabs/24 hr PO fluoxetine 40 mg capsule 40 mg PO QAM Rx Instructions: TAKE ONE CAPSULE BY MOUTH EVERY MORNING levothyroxine 50 mcg tablet 50 mcg PO DAILY Rx Instructions: take one tablet BY MOUTH EVERY DAY Discharge Orders: Discharge ED (Routine); Ordered 09/16/24 Ordered By: Dagmar Hood Referrals: Wai William, [Primary Care Provider] - Discharge Diet: Usual diet Discharge Activity: Increase activity as tolerated Patient Instructions: Migraine Headache (ED), Opioid Safety, Pain Management Activity Restrictions/Additional Instructions: Thank you for choosing [facility] for your healthcare needs today. Please realize this is an emergency room and that we are providing you with a medical screening exam and this may not be complete and all inclusive of all the testing and or work up that you may need to determine your ailment or severity of your illness. You have been screened and evaluated and felt safe for discharge. Health conditions do change or evolve sometimes and as such it is important that you follow up with your Primary Doctor to be re checked, 3-5 days is a general good time frame for follow up. You are always welcome to return to the ED for re assessment if your symptoms are worsening or you have new concerns Print Language: Albanian Coding Level of Care Code ED Flight Radio Operator for Yajaira Lal
[2024-09-16] MEDS: sodium chloride 0.9% 1,000 ML 999 ML IV (14:46)
[2024-09-16] MEDS: ondansetron 2 mg/ML SDV 2 mL 8 MG IVP (14:47)
[2024-09-16] MEDS: ketorolac 30 mg/mL INJ IVP (14:50)
[2024-09-16] MEDS: metoclopramide 5 mg/mL SDV 2 mL 10 MG IVP (14:51)
[2024-09-16] MEDS: orphenadrine 30 mg/mL Inj 2 mL 60 MG IVP (14:54)
[2024-09-16] MEDS: diphenhydrAMINE 50 mg/mL SDV 1mL 25 MG IVP (14:58)
[2024-09-16 15:39] VITALS: BP 102/79; PULSE 71; O2SAT 99
[2024-09-16 16:00] VITALS: BP 95/64; O2SAT 96
[2024-09-16 17:30] VITALS: BP 96/66; PULSE 69; O2SAT 98
[2024-09-16] MEDS: valproic acid inj 500 MG in sodium chloride 0.9% 50 ML 55 MG IV (17:33)
[2024-09-16 18:00] VITALS: BP 105/75; PULSE 70; RESP 16; O2SAT 98
[2024-09-16 18:31] VITALS: BP 105/75; PULSE 74; O2SAT 96
== END 2024-09-16 18:33 | disposition home or self-care (01) ==
PROVIDERS: Emergency Provider Emergency Medicine; PCP Family Medicine
DX: G43.909 Migraine, unspecified, not intractable, without status migrainosus (principal)
CPT/HCPCS: 96365; 96375; 99284; 99285; J1200; J1885; J2360; J2405; J2765; J3490; J7030

== ENCOUNTER → 2024-11-16 10:00 | Outpatient (BNVA) | payer OTHER, SELFPAY | PROVIDERS: PCP Family Medicine; Visit Provider Family Medicine | DX: E03.9 Hypothyroidism, unspecified (principal); G43.909 Migraine, unspecified, not intractable, without status migrainosus; Z91.018 Allergy to other foods; G47.30 Sleep apnea, unspecified; R06.83 Snoring; F41.1 Generalized anxiety disorder; F32.1 Major depressive disorder, single episode, moderate | CPT/HCPCS: 80053; 80061; 82785; 84439; 84443; 85025; 86001; 86003; 86008 ==

== ENCOUNTER → 2025-04-04 10:30 | Outpatient (BNVA) | payer OTHER, SELFPAY | PROVIDERS: PCP Family Medicine; Visit Provider Emergency Medicine | DX: N76.0 Acute vaginitis (principal) | CPT/HCPCS: 81513; 87481; 87491; 87591; 87661 ==

== ENCOUNTER → 2025-04-15 15:31 | Outpatient (BNVA) | payer OTHER, SELFPAY | PROVIDERS: PCP Family Medicine; Visit Provider Nurse Practitioner Women's Health | DX: R23.2 Flushing (principal) | CPT/HCPCS: 82306; 82670; 83001; 83002; 83520; 84144; 84443 ==